=== PATIENT | male | born 1980 | race Two or more races ===

== ENCOUNTER 2020-04-24 09:44 | Outpatient (REF) | payer OTHER, SELFPAY | END 2020-04-24 09:45 | disposition home or self-care (01) | LOC: HO.LAB 09:44 | PROVIDERS: Visit Provider Internal Medicine | DX: Z20.828 Contact with and (suspected) exposure to other viral communicable diseases (principal) | CPT/HCPCS: C9803; U0003 ==

== ENCOUNTER 2020-05-26 20:39 | Emergency (ER) | payer OTHER, SELFPAY ==
[2020-05-26 20:41] VITALS: BP 141/87; PULSE 83; RESP 18; TEMP 37.3; O2SAT 95; BMI 37.0
--- NOTE | 2020-05-26 21:25 | ED_ITS ---
HPI - Extremity Injury (Lower) General Chief Complaint: Extremity Injury, Lower Stated Complaint: Toe pain Time Seen by Provider: 05/26/20 21:09 Source: patient Mode of arrival: ambulatory Limitations: no limitations History of Present Illness HPI Narrative: Patient noticed small red pimple on the dorsum aspect of right greater toe 3 days ago which is getting worse with increased pain and swelling no open wounds no other injuries Related Data Home Medications Medication Instructions Recorded Confirmed naproxen 500 mg tablet 500 mg PO BID 05/22/20 tramadol 50 mg tablet 50 mg PO BID 05/22/20 Previous Rx's Medication Instructions Recorded lisinopril 5 mg tablet 5 mg PO DAILY 90 Days #90 tab 04/14/20 lidocaine 5 % topical patch 1 patch TOPICAL DAILY #30 ea 05/22/20 methocarbamol 500 mg tablet 1,000 mg PO QID PRN 5 Days #20 tab 05/22/20 prednisone 20 mg tablet 20 mg PO DAILY 9 Days #18 tab MDD 05/22/20 3 for 3days;2 for 3 days;1 3da doxycycline hyclate 100 mg PO BID #20 cap 05/26/20 Allergies Allergy/AdvReac Type Severity Reaction Status Date / Time hazelnut [HAZELNUT] Allergy Unknown UNKNOWN Verified 05/26/20 20:41 hazelnut Allergy Unknown unknow Uncoded 05/26/20 20:41 Review of Systems Review of Systems: Yes all other systems are reviewed and are negative FORMERLY [facility], [facility] Past Medical History Medical History Back pain HTN (hypertension) Social History Social History Alcohol intake: never Smoked in Last 30 Days: No Advance Directives: No Advance Directives Information Provided: No Physical Exam Vital Signs: Vital Signs: Last Vital Signs Temp 99.1 F 05/26/20 20:41 Pulse 83 05/26/20 20:41 Resp 18 05/26/20 20:41 BP 141/87 H 05/26/20 20:41 Pulse Ox 95 05/26/20 20:41 Body Mass Index 37.0 Const: General: cooperative, healthy appearing, comfortable, no acute distress and well developed Orientation/consciousness: patient oriented x3 Neuro: General: patient oriented x3, gait normal and moves all extremities Extrem: Ankle/foot/toe images: 1. Small erythematous swelling on dorsum of the right great toe MDM - Extremity Injury (Lower) MDM Narrative Medical decision making narrative: Small folliculitis on right greater toe on the dorsal aspect punctured by 18 gauge needle small amount of pus came out bandage was applied will discharge him home on doxycycline Discharge Plan Discharge Clinical Impression: Folliculitis Patient Disposition: Home, Self-Care Instructions: Folliculitis (ED) Additional Instructions: Local care as advised take antibiotic as prescribed Prescriptions: New doxycycline hyclate 100 mg capsule 100 mg PO BID Qty: 20 RF: 0 No Action lisinopril 5 mg tablet 5 mg PO DAILY 90 Days Qty: 90 RF: 0 tramadol 50 mg tablet 50 mg PO BID RF: 0 naproxen 500 mg tablet 500 mg PO BID RF: 0 lidocaine 5 % adhesive patch,medicated 1 patch topical DAILY Qty: 30 RF: 0 prednisone 20 mg tablet 20 mg PO DAILY MDD 3 for 3days;2 for 3 days;1 3da 9 Days Qty: 18 RF: 0 methocarbamol 500 mg tablet 1,000 mg PO QID PRN (Reason: muscle spasm) 5 Days Qty: 20 RF: 0
--- NOTE | 2020-05-26 21:48 | PC.NURSE ---
pt abscess drained and cleaned by dr romeo band aid applied.
== END 2020-05-26 21:51 | disposition home or self-care (01) ==
PROVIDERS: Emergency Provider Internal Medicine; PCP Internal Medicine
DX: L73.9 Follicular disorder, unspecified (principal); M79.674 Pain in right toe(s); I10 Essential (primary) hypertension
CPT/HCPCS: 10060; 99283; 99284

== ENCOUNTER 2020-06-12 09:00 | Outpatient (REF) | payer OTHER, SELFPAY | END 2020-06-12 09:01 | disposition home or self-care (01) | LOC: HO.LAB 09:00 | PROVIDERS: Visit Provider Internal Medicine | DX: Z20.828 Contact with and (suspected) exposure to other viral communicable diseases (principal) | CPT/HCPCS: 36415; C9803; U0003 ==

== ENCOUNTER 2020-07-26 08:30 | Outpatient (REF) | payer OTHER, SELFPAY | END 2020-07-26 08:31 | disposition home or self-care (01) | LOC: HO.LAB 08:30 | PROVIDERS: PCP Internal Medicine; Visit Provider Internal Medicine | DX: Z20.822 Contact with and (suspected) exposure to COVID-19 (principal) | CPT/HCPCS: 36415; C9803; U0003; U0005 ==

== ENCOUNTER 2020-08-20 15:11 | Outpatient (REF) | payer OTHER, SELFPAY | END 2020-08-20 15:12 | disposition home or self-care (01) | LOC: HO.LAB 15:11 | PROVIDERS: Visit Provider Internal Medicine | DX: Z20.822 Contact with and (suspected) exposure to COVID-19 (principal) | CPT/HCPCS: 36415; C9803; U0003; U0005 ==

== ENCOUNTER 2020-09-04 09:21 | Outpatient (REF) | payer OTHER, SELFPAY ==
[2020-09-04 11:58] LABS: SARS COV2 PCR INHOUSE NEGATIVE (Negative)
== END 2020-09-04 09:22 | disposition home or self-care (01) ==
LOC: HO.LAB 09:21
PROVIDERS: Visit Provider Internal Medicine
DX: Z20.822 Contact with and (suspected) exposure to COVID-19 (principal)
CPT/HCPCS: C9803; U0003

== ENCOUNTER 2020-11-10 21:41 | Emergency (ER) | payer OTHER, SELFPAY ==
--- NOTE | ~2020-11-10 | CT_ITS ---
EXAMINATION: CT SOFT TISSUE NECK WITHOUT CONTRAST CLINICAL INFORMATION: Foreign body, sensation of chicken bone stuck in throat for 2 days per discussion with ordering clinician COMPARISON: None TECHNIQUE: Helical imaging was performed in the axial plane with generation of coronal and sagittal reformatted images. This CT examination was performed using dose optimization techniques as appropriate, variously including the following: *Automated exposure control *Adjustment of mA and/or kV according to patient size (this includes techniques or standardized protocols for targeted exams where dose is matched to indication/reason for exam; i.e. extremities or head) *Use of iterative reconstruction technique DLP: 1013 mGy-cm FINDINGS: No radiopaque foreign body is seen. No cervical adenopathy is identified. The parotid glands are homogeneous in attenuation. The submandibular glands are normal. No contour abnormality is seen within the oral cavity or pharyngeal mucosal space. Laryngeal cartilage calcifications are noted. The parapharyngeal fat is preserved. No extra mucosal fluid collection is seen. No retropharyngeal fluid collection is seen. The thyroid gland is unremarkable. The superior mediastinum is unremarkable. The lung apices are clear. There is partial opacification of the left maxillary sinus. Small mucous retention cyst noted in the right maxillary sinus. The mastoid air cells are well-aerated. The temporomandibular joints are normal. There is mild degenerative change in the cervical spine at C5-C6 with endplate osteophyte formation. The imaged portions of the brain parenchyma are unremarkable. CT/CT soft tissue neck wo con IMPRESSION: No radiopaque foreign body identified.
[2020-11-10 21:51] VITALS: BP 142/99; PULSE 93; RESP 16; TEMP 36.7; O2SAT 99; BMI 39.4
--- NOTE | 2020-11-11 01:10 | ED_ITS ---
HPI - General Adult General Chief complaint: Skin/Abscess/Foreign Body Stated complaint: throat pain Time Seen by Provider: 11/11/20 00:58 Source: patient and RN notes reviewed Mode of arrival: ambulatory Limitations: no limitations History of Present Illness HPI narrative: 40-year-old male with past medical history of chronic back pain and allergic rhinitis is here today for complaining of difficulty swallowing, pain with swallowing. Patient reports that he did had chicken couple days ago and he feels like the chicken got stuck in his throat. He does not remember if he had chicken with the bone or without it. Patient states that he feels like there is an something stuck in his trachea. Denies SOB, was able to swallow food and fluids, however he reports that when he swallows he feels like there is something stuck in there. Related Data Home Medications Medication Instructions Recorded Confirmed naproxen 500 mg tablet 500 mg PO BID 05/22/20 tramadol 50 mg tablet 50 mg PO BID 05/22/20 Previous Rx's Medication Instructions Recorded lidocaine 5 % topical patch 1 patch TOPICAL DAILY #30 ea 05/22/20 methocarbamol 500 mg tablet 1,000 mg PO QID PRN 5 Days #20 tab 05/22/20 prednisone 20 mg tablet 20 mg PO DAILY 9 Days #18 tab MDD 05/22/20 3 for 3days;2 for 3 days;1 3da doxycycline hyclate 100 mg PO BID #20 cap 05/26/20 hydroxyzine HCl 25 mg tablet 25 mg PO BID PRN #60 tab 11/06/20 lidocaine 5 % topical patch 1 patch TOPICAL DAILY #30 ea 11/06/20 mometasone 50 mcg/actuation nasal 2 spray INTRANASAL DAILY #17 g 11/06/20 spray ibuprofen 600 mg PO Q8H PRN #20 tab 11/11/20 ketotifen fumarate 1 drp OPHTHALMIC (EYE) BID PRN #5 11/12/20 ml omeprazole 20 mg PO DAILY #14 cap 11/12/20 Allergies Allergy/AdvReac Type Severity Reaction Status Date / Time hazelnut [HAZELNUT] Allergy Unknown UNKNOWN Verified 11/10/20 21:57 hazelnut Allergy Unknown unknow Uncoded 11/10/20 21:57 Review of Systems Review of Systems: Constitutional : No Weight loss, No Fever, No Chills, No Night Sweats, No Fatigue, No Malaise ENT/Mouth : No Hearing loss, No Ear Pain, No Nasal Congestion, No Sinus Pain, No Hoarseness, No sore throat, No Rhinorrhea, No Swallowing Difficulty, pain with swallowing Eyes: No Eye Pain, No Swelling, No Redness, No Foreign Body, No Discharge, No Vision Changes Cardiovascular : No Chest Pain, No SOB, No Dyspnea on Exertion, No Orthopnea, No Edema, No Palpitations Respiratory : No Cough, No Sputum, No Wheezing, No Smoke Exposure, No Dyspnea Gastrointestinal : No Nausea, No Vomiting, No Diarrhea, No Constipation, No abdominal Pain, No Hematochezia, No Melena Genitourinary : no irregular bleeding, No Dysuria, No Urinary Frequency, No Hematuria, No Urinary Incontinence, No Urgency, No Flank Pain, No Urinary Flow Changes, No Hesitancy Musculoskeletal : No joint pain, No Myalgias, No Joint Swelling Skin : No Skin Lesions, No rash Neuro : No Weakness, No Numbness, No Paresthesias, No Loss of Consciousness, No Dizziness, No Headache Psych : No Anxiety/Panic, No Depression, No SI/HI/AH/VH, No Social Issues, Heme/Lymph: No Bruising, No Bleeding,No Lymphadenopathy Endocrine : No Polyuria, No Polydipsia, No Temperature Intolerance Yes all other systems are reviewed and are negative PMFSH Past Medical History Medical History Back pain HTN (hypertension) Social History Social History Alcohol intake: current Alcohol intake frequency: a few times a week Use of substances other than those prescribed or required for medical reasons: No Advance Directives: No Advance Directives Information Provided: No Physical Exam Vital Signs: Vital Signs: Last Vital Signs Temp 98.1 F 11/11/20 02:45 Pulse 81 11/11/20 02:45 Resp 16 11/11/20 02:45 BP 137/86 11/11/20 02:45 Pulse Ox 98 11/11/20 02:45 Body Mass Index 39.4 Const: General: healthy appearing, no acute distress and well developed Nutritional Appearance: well nourished Orientation/consciousness: patient oriented x3 HENMT: Head: Yes normal to inspection, Yes normocephalic and Yes abrasion Ears: hearing grossly normal bilaterally General nose exam: Normal external nose present Face and sinus: Yes normal facial exam Mouth: Normal oral and palatal mucosa present Teeth and gingiva: dentition normal Throat: Yes posterior oropharynx normal Neck: Neck: Yes normal visual inspection, Yes full ROM and Yes trachea midline Thyroid: Thyroid normal Resp: Auscultation: clear to auscultation bilaterally Cardio: Rate: regular rate Rhythm: regular rhythm GI: Inspection: Yes normal to inspection and No distended Palpation (GI): No hepatosplenomegaly present Auscultation: normal bowel sounds Skin: General skin exam: elasticity normal, turgor normal and dry skin Neuro: General: patient oriented x3 Course Course Course Narrative: 40 year-old male is here today after eating chicken 2 days ag o. Patient reports that he feels like the chicken is still stuck in his throat. He reports he feels that when he swallow food or fluids he feels like there is something stuck in his trachea Reevaluation(s) Reevaluation #1: Spoke to radiologist reports that there is no foreign object. Spoke to patient reassured him that the pain might be associated with mild abrasion, however there is no swelling noted. Patient able to tolerate fluids. I will send him home so he can gargle with warm water and salt. He he can follow up with his primary care provider in 2-3 days. He is agreeable to this plan of care and verbalizes understanding. He was given the opportunity to ask questions and all questions answered. Medical Decision Making Imaging Data Soft tissue neck CT scan: Radiologist's impression: FINDINGS: No radiopaque foreign body is seen. No cervical adenopathy is identified. The parotid glands are homogeneous in attenuation. The submandibular glands are normal. No contour abnormality is seen within the oral cavity or pharyngeal mucosal space. Laryngeal cartilage calcifications are noted. The parapharyngeal fat is preserved. No extra mucosal fluid collection is seen. No retropharyngeal fluid collection is seen. The thyroid gland is unremarkable. The superior mediastinum is unremarkable. The lung apices are clear. There is partial opacification of the left maxillary sinus. Small mucous retention cyst noted in the right maxillary sinus. The mastoid air cells are well-aerated. The temporomandibular joints are normal. There is mild degenerative change in the cervical spine at C5-C6 with endplate osteophyte formation. The imaged portions of the brain parenchyma are unremarkable. CT/CT soft tissue neck wo con IMPRESSION: No radiopaque foreign body identified. Discharge Plan Discharge Clinical Impression: Acute sore throat Patient Disposition: Home, Self-Care Instructions: Pharyngitis (ED) Additional Instructions: You were seen here today for questioning foreign body was stuck in your throat. CT scan of the neck show no foreign body. Please make sure you gargle with warm water and salt few times a day. When you eat make sure you eat soft food and eat small pieces. Please return to emergency department if your symptoms will get worse or if you will experience any other concerning symptoms. You may take ibuprofen that will help with pain and inflammation Prescriptions: New ibuprofen 600 mg tablet 600 mg PO Q8H PRN (Reason: pain) Qty: 20 RF: 0 No Action doxycycline hyclate 100 mg capsule 100 mg PO BID Qty: 20 RF: 0 omeprazole 20 mg capsule,delayed release(DR/EC) 20 mg PO DAILY Qty: 14 RF: 0 ketotifen fumarate 0.025 % (0.035 %) drops 1 drp ophthalmic (eye) BID PRN (Reason: allergy symptoms) Qty: 5 RF: 0 hydroxyzine HCl 25 mg tablet 25 mg PO BID PRN (Reason: itching) Qty: 60 RF: 0 mometasone 50 mcg/actuation spray,non-aerosol 2 spray intranasal DAILY Qty: 17 RF: 0 lidocaine 5 % adhesive patch,medicated 1 patch topical DAILY Qty: 30 RF: 0 tramadol 50 mg tablet 50 mg PO BID RF: 0 naproxen 500 mg tablet 500 mg PO BID RF: 0 lidocaine 5 % adhesive patch,medicated 1 patch topical DAILY Qty: 30 RF: 0 prednisone 20 mg tablet 20 mg PO DAILY MDD 3 for 3days;2 for 3 days;1 3da 9 Days Qty: 18 RF: 0 methocarbamol 500 mg tablet 1,000 mg PO QID PRN (Reason: muscle spasm) 5 Days Qty: 20 RF: 0 Interventions: ED Discharge Assessment Last Done: 11/11/20 02:46 Discharge Date/Time: 11/11/20 02:47
[2020-11-11] MEDS: Ibuprofen 600 MG TABLET PO (02:42)
[2020-11-11 02:45] VITALS: BP 137/86; PULSE 81; RESP 16; TEMP 36.7; O2SAT 98
== END 2020-11-11 02:47 | disposition home or self-care (01) ==
PROVIDERS: Emergency Provider Student in an Organized Health Care Education/Training Program; PCP Internal Medicine
DX: J02.9 Acute pharyngitis, unspecified (principal); I10 Essential (primary) hypertension; R09.89 Other specified symptoms and signs involving the circulatory and respiratory systems
CPT/HCPCS: 70490; 99283; 99284

== ENCOUNTER 2020-11-12 10:11 | Emergency (ER) | payer OTHER, SELFPAY ==
--- NOTE | 2020-11-12 | ECG_ITS ---
Test Reason : CP Blood Pressure : / mmHG Vent. Rate : 088 BPM Atrial Rate : 088 BPM P-R Int : 182 ms QRS Dur : 086 ms QT Int : 368 ms P-R-T Axes : 041 -18 005 degrees QTc Int : 445 ms Normal sinus rhythm Minimal voltage criteria for LVH, may be normal variant Borderline ECG When compared with ECG of 12-JUL-2018 10:56, No significant change was found Referred By: Generic ED Physician Electronically Signed By:GENNARO ZAVALETA MD
--- NOTE | ~2020-11-12 | FL_ITS ---
EXAMINATION: FL BARIUM SWALLOW CLINICAL INFORMATION: Rule out esophageal foreign body. COMPARISON: None TECHNIQUE: Barium swallow examination is performed using fluoroscopic evaluation in addition to multiple fluoroscopic spot views. The patient is imaged both upright and prone and using both thick and thin sulfate along with effervescent granules. Fluoroscopy time: 2.4 minutes DAP: 8.576 Gycm2 Images: 48 FINDINGS: Following oral administration of thin, thick barium and barium coated turkey in upright views there is normal propagation of bolus from the oral cavity through the pharynx, esophagus into stomach without any evidence of obstruction, narrowing or stricture. No foreign body seen. No laryngeal penetration or aspiration. No retention of food in the valleculae or the piriform sinuses. On placing patient prone lying and oral administration of thin barium there is good distention of the entire esophagus without intraluminal filling defect or narrowing. No gastroesophageal reflux or hiatal hernia seen. FL/FL barium swallow IMPRESSION: Unremarkable barium swallow exam. No radiopaque foreign body or obstruction seen.
--- NOTE | ~2020-11-12 | XR_ITS ---
EXAMINATION: XR CHEST CLINICAL INFORMATION: Chest pain. COMPARISON: None TECHNIQUE: 2 views of the chest were obtained. FINDINGS: No significant abnormality is noted involving the heart, lungs, mediastinum, bony thorax or soft tissues. XR/XR chest 2V IMPRESSION: Unremarkable chest examination.
[2020-11-12 10:17] VITALS: BP 142/90; PULSE 92; RESP 18; TEMP 36.3; O2SAT 96; BMI 39.9
--- NOTE | 2020-11-12 11:25 | ED.GENADULT ---
HPI - General Adult General Chief complaint: General Medical <ITA Avery Last Filed: 11/12/20 16:40> Stated complaint: chest pain <ITA Avery Last Filed: 11/12/20 16:40> Time Seen by Provider: 11/12/20 11:06 <ITA Avery Last Filed: 11/12/20 16:40> History of Present Illness HPI narrative: Patient complains of 2 days of pain with swallowing it started 2 days ago and the patient came to the ER when he was eating a piece of gristle from chicken and he felt pain as soon as it went down his throat and he felt like it was stuck there and he came to this emergency department where was seen and evaluated with the soft tissue neck CT scan which did not reveal any foreign body or any acute pathology Now today only when he swallows he has pain in both his throat and his upper chest, he has no chest pain except when swallowing there is no exertional pain there is no shortness of breath no sweating from his forehead no nausea no fainting or feeling faint, no abdominal pain no nausea or vomiting or diarrhea no urinary symptoms He is able to swallow and eat foods and drink fluids but it is painful <ITA Avery Last Filed: 11/12/20 16:40> Related Data Home medications: Home Medications Medication Instructions Recorded Confirmed naproxen 500 mg tablet 500 mg PO BID 05/22/20 tramadol 50 mg tablet 50 mg PO BID 05/22/20 Previous Rx's Medication Instructions Recorded lidocaine 5 % topical patch 1 patch TOPICAL DAILY #30 ea 05/22/20 methocarbamol 500 mg tablet 1,000 mg PO QID PRN 5 Days #20 tab 05/22/20 prednisone 20 mg tablet 20 mg PO DAILY 9 Days #18 tab MDD 05/22/20 3 for 3days;2 for 3 days;1 3da doxycycline hyclate 100 mg PO BID #20 cap 05/26/20 hydroxyzine HCl 25 mg tablet 25 mg PO BID PRN #60 tab 11/06/20 lidocaine 5 % topical patch 1 patch TOPICAL DAILY #30 ea 11/06/20 mometasone 50 mcg/actuation nasal 2 spray INTRANASAL DAILY #17 g 11/06/20 spray ibuprofen 600 mg PO Q8H PRN #20 tab 11/11/20 ketotifen fumarate 1 drp OPHTHALMIC (EYE) BID PRN #5 11/12/20 ml omeprazole 20 mg PO DAILY #14 cap 11/12/20 cephalexin [Keflex] 750 mg PO Q12H #14 cap 12/06/20 doxycycline hyclate 100 mg PO BID #14 tab 12/06/20 <ITA Avery - Last Filed: 11/12/20 16:40> Allergies/adverse reactions: Allergies Allergy/AdvReac Type Severity Reaction Status Date / Time hazelnut [HAZELNUT] Allergy Unknown UNKNOWN Verified 11/10/20 21:57 hazelnut Allergy Unknown unknow Uncoded 11/10/20 21:57 <ITA Avery - Last Filed: 11/12/20 16:40> Review of Systems Review of Systems: Positive for pain in the throat in the upper chest with swallowing next not negatives are no fever no chills no dizziness or weakness no fainting no feeling faint no headache no shortness of breath no palpitations no sweating no abdominal pain no nausea vomiting or diarrhea no dysuria no skin rash no numbness or weakness <ITA Avery Last Filed: 11/12/20 16:40> Yes all other systems are reviewed and are negative <ITA Avery - Last Filed: 11/12/20 16:40> [facility] Past Medical History Source: nursing notes reviewed <ITA Avery Last Filed: 11/12/20 16:40> Medical History: Medical History Back pain HTN (hypertension) <ITA Avery Last Filed: 11/12/20 16:40> Social History Social History: Social History Alcohol intake: current Alcohol intake frequency: a few times a week Advance Directives: No <ITA Avery Last Filed: 11/12/20 16:40> Physical Exam Vital Signs: Vital Signs: Last Vital Signs Temp 97.9 F 11/12/20 15:38 Pulse 85 11/12/20 15:38 Resp 18 11/12/20 15:38 BP 144/93 H 11/12/20 15:38 Pulse Ox 96 11/12/20 15:38 Body Mass Index 39.9 <ITA Avery - Last Filed: 11/12/20 16:40> Vital Signs: Last Vital Signs Temp 97.9 F 11/12/20 15:38 Pulse 85 11/12/20 15:38 Resp 18 11/12/20 15:38 BP 144/93 H 11/12/20 15:38 Pulse Ox 96 11/12/20 15:38 Body Mass Index 39.9 <Anderson Bailey MD - Last Filed: 12/20/20 13:25> General appearance is no acute distress comfortable and cooperative The eyes are anicteric, no pallor The pharynx is clear with no visible obstruction, there is no swelling uvula is midline mucous membranes are moist the voice is normal, no trismus no drooling The neck is supple there is no stridor The chest is clear to auscultation bilateral with full symmetric equal breath sounds no adventitious sounds, no tenderness to the chest wall The abdomen is soft and nontender Extremities no edema, full range of motion x4 Skin no rashes <ITA Avery - Last Filed: 11/12/20 16:40> Course Course Course Narrative: Case was discussed with Dr. simpson property staff accountant by text who advised to get a barium swallow to check if there is any obstruction Barium swallow was normal, and I texted with Dr. simpson who said she would follow the patient on an outpatient basis The patient is able to swallow although it is uncomfortable he can swallow both solids and liquids there is no drooling no regurgitation no difficulty breathing and patient is safe to discharge and will come back if worse Chest x-ray was done as well and is normal <ITA Avery - Last Filed: 11/12/20 16:40> I have reviewed the chart <Anderson Bailey MD - Last Filed: 12/20/20 13:25> Discharge Plan Discharge Clinical Impression: Odynophagia <ITA Avery - Last Filed: 11/12/20 16:40> Patient Disposition: Home, Self-Care <ITA Avery - Last Filed: 11/12/20 16:40> Additional Instructions: Chest x-ray was normal Barium swallow did not show any obstruction or foreign body This could be an irritated or scratched esophagus that may be uncomfortable for a couple of days, but we are not sure Follow with GI doctor calvin and primary care doctor Return any time for any worse condition or any concerns <ITA Avery - Last Filed: 11/12/20 16:40> Prescriptions: New omeprazole 20 mg capsule,delayed release(DR/EC) 20 mg PO DAILY Qty: 14 RF: 0 ketotifen fumarate 0.025 % (0.035 %) drops 1 drp ophthalmic (eye) BID PRN (Reason: allergy symptoms) Qty: 5 RF: 0 No Action doxycycline hyclate 100 mg capsule 100 mg PO BID Qty: 20 RF: 0 ibuprofen 600 mg tablet 600 mg PO Q8H PRN (Reason: pain) Qty: 20 RF: 0 cephalexin [Keflex] 750 mg capsule 750 mg PO Q12H Qty: 14 RF: 0 doxycycline hyclate 100 mg tablet 100 mg PO BID Qty: 14 RF: 0 hydroxyzine HCl 25 mg tablet 25 mg PO BID PRN (Reason: itching) Qty: 60 RF: 0 mometasone 50 mcg/actuation spray,non-aerosol 2 spray intranasal DAILY Qty: 17 RF: 0 lidocaine 5 % adhesive patch,medicated 1 patch topical DAILY Qty: 30 RF: 0 tramadol 50 mg tablet 50 mg PO BID RF: 0 naproxen 500 mg tablet 500 mg PO BID RF: 0 lidocaine 5 % adhesive patch,medicated 1 patch topical DAILY Qty: 30 RF: 0 prednisone 20 mg tablet 20 mg PO DAILY MDD 3 for 3days;2 for 3 days;1 3da 9 Days Qty: 18 RF: 0 methocarbamol 500 mg tablet 1,000 mg PO QID PRN (Reason: muscle spasm) 5 Days Qty: 20 RF: 0 <ITA Avery - Last Filed: 11/12/20 16:40> Referrals: Aarti Simpson MD [Physician] - 2 days (Follow-up for painful swallowing and foreign body sensation in esophagus) <ITA Avery - Last Filed: 11/12/20 16:40> Discharge Date/Time: 11/12/20 17:20 <ITA Avery - Last Filed: 11/12/20 16:40>
--- NOTE | 2020-11-12 12:23 | PC.NURSE ---
Patient is asleep on the stretcher in no distress. respirations are even and nonlabored.
[2020-11-12 13:05] VITALS: BP 127/81; PULSE 84; RESP 17; TEMP 36.7; O2SAT 96
--- NOTE | 2020-11-12 14:00 | PC.NURSE ---
Patient back from getting barium swallow study done. Pt is alert and talking on the phone. Pt states he is not in any pain unless he swallows.
[2020-11-12 15:38] VITALS: BP 144/93; PULSE 85; RESP 18; TEMP 36.6; O2SAT 96
== END 2020-11-12 17:20 | disposition home or self-care (01) ==
PROVIDERS: Emergency Provider Emergency Medicine; PCP Internal Medicine
DX: R13.10 Dysphagia, unspecified (principal); R07.9 Chest pain, unspecified; I10 Essential (primary) hypertension; R09.89 Other specified symptoms and signs involving the circulatory and respiratory systems; Z79.899 Other long term (current) drug therapy
CPT/HCPCS: 71046; 74220; 93005; 99284

== ENCOUNTER 2020-12-06 17:38 | Emergency (ER) | payer OTHER, SELFPAY ==
[2020-12-06 18:53] VITALS: BP 145/100; PULSE 78; RESP 18; TEMP 36.7; O2SAT 97; BMI 39.4
--- NOTE | 2020-12-06 19:50 | ED.SKABFB ---
HPI - Skin/Abscess/Foreign Bdy General Chief complaint: Skin/Abscess/Foreign Body Stated complaint: Cyst Time Seen by Provider: 12/06/20 19:36 Source: patient Mode of arrival: ambulatory Limitations: no limitations History of Present Illness HPI narrative: patient is a 40-year-old male with past medical history of hypertension presents with 2 abscesses he would like evaluated. He states they have been there for a couple of days and are painful. He states 1 is on the back of his neck, he says it has not drained heat only scratch the surface of it and that is where there is a scab there. He also states the 2nd 1 is on his right shoulder, at the tip of the shoulder, he feels they are both growing and are becoming more painful. He tried taking ibuprofen with no relief. He denies fevers. Related Data Home Medications Medication Instructions Recorded Confirmed naproxen 500 mg tablet 500 mg PO BID 05/22/20 tramadol 50 mg tablet 50 mg PO BID 05/22/20 Previous Rx's Medication Instructions Recorded lidocaine 5 % topical patch 1 patch TOPICAL DAILY #30 ea 05/22/20 methocarbamol 500 mg tablet 1,000 mg PO QID PRN 5 Days #20 tab 05/22/20 prednisone 20 mg tablet 20 mg PO DAILY 9 Days #18 tab MDD 05/22/20 3 for 3days;2 for 3 days;1 3da doxycycline hyclate 100 mg PO BID #20 cap 05/26/20 hydroxyzine HCl 25 mg tablet 25 mg PO BID PRN #60 tab 11/06/20 lidocaine 5 % topical patch 1 patch TOPICAL DAILY #30 ea 11/06/20 mometasone 50 mcg/actuation nasal 2 spray INTRANASAL DAILY #17 g 11/06/20 spray ibuprofen 600 mg PO Q8H PRN #20 tab 11/11/20 ketotifen fumarate 1 drp OPHTHALMIC (EYE) BID PRN #5 11/12/20 ml omeprazole 20 mg PO DAILY #14 cap 11/12/20 cephalexin [Keflex] 750 mg PO Q12H #14 cap 12/06/20 doxycycline hyclate 100 mg PO BID #14 tab 12/06/20 Allergies Allergy/AdvReac Type Severity Reaction Status Date / Time hazelnut [HAZELNUT] Allergy Unknown UNKNOWN Verified 11/10/20 21:57 hazelnut Allergy Unknown unknow Uncoded 11/10/20 21:57 Review of Systems Review of Systems: Yes all other systems are reviewed and are negative [facility], [facility] Past Medical History Medical History Back pain HTN (hypertension) Social History Social History Alcohol intake: current Alcohol intake frequency: a few times a week Advance Directives: No Physical Exam Vital Signs: Vital Signs: Last Vital Signs Temp 98.0 F 12/06/20 18:53 Pulse 78 12/06/20 18:53 Resp 18 12/06/20 18:53 BP 145/100 H 12/06/20 18:53 Pulse Ox 97 12/06/20 18:53 Body Mass Index 39.4 Const: General: cooperative, healthy appearing, comfortable and no acute distress Orientation/consciousness: patient oriented x3 Eyes: General: appearance normal, both eyes and all related structures Skin: Other: Posterior neck 1.5 cm indurated abscess, no erythema, no drainage, no warmth, not fluctuant with small scab in the central area, very tender to palpation. I was unable to palpate a lump on his right superior shoulder nor was I able to visualize any lump or abscess on his right superior shoulder, there is no induration, no fluctuance, no erythema, no signs of infection noted Neuro: General: patient oriented x3 Discharge Plan Discharge Clinical Impression: Abscess Patient Disposition: Home, Self-Care Instructions: Abscess (ED) Additional Instructions: As discussed, please use warm compresses over the area of your abscess as often as possible to encourage the drainage. Unfortunately, it is not a fluctuant enough for me to incise and drain anything so I have prescribed 2 antibiotics for you to take, we will give your 1st dose in the emergency department tonight as her pharmacy may be closed. Please take both antibiotics in full, as directed. Prescriptions: New cephalexin [Keflex] 750 mg capsule 750 mg PO Q12H Qty: 14 RF: 0 doxycycline hyclate 100 mg tablet 100 mg PO BID Qty: 14 RF: 0 No Action doxycycline hyclate 100 mg capsule 100 mg PO BID Qty: 20 RF: 0 ibuprofen 600 mg tablet 600 mg PO Q8H PRN (Reason: pain) Qty: 20 RF: 0 omeprazole 20 mg capsule,delayed release(DR/EC) 20 mg PO DAILY Qty: 14 RF: 0 ketotifen fumarate 0.025 % (0.035 %) drops 1 drp ophthalmic (eye) BID PRN (Reason: allergy symptoms) Qty: 5 RF: 0 hydroxyzine HCl 25 mg tablet 25 mg PO BID PRN (Reason: itching) Qty: 60 RF: 0 mometasone 50 mcg/actuation spray,non-aerosol 2 spray intranasal DAILY Qty: 17 RF: 0 lidocaine 5 % adhesive patch,medicated 1 patch topical DAILY Qty: 30 RF: 0 tramadol 50 mg tablet 50 mg PO BID RF: 0 naproxen 500 mg tablet 500 mg PO BID RF: 0 lidocaine 5 % adhesive patch,medicated 1 patch topical DAILY Qty: 30 RF: 0 prednisone 20 mg tablet 20 mg PO DAILY MDD 3 for 3days;2 for 3 days;1 3da 9 Days Qty: 18 RF: 0 methocarbamol 500 mg tablet 1,000 mg PO QID PRN (Reason: muscle spasm) 5 Days Qty: 20 RF: 0
[2020-12-06] MEDS: cephALEXin 500 MG CAPSULE PO (19:54)
== END 2020-12-06 19:57 | disposition home or self-care (01) ==
PROVIDERS: Emergency Provider Internal Medicine; PCP Internal Medicine
DX: L02.11 Cutaneous abscess of neck (principal); I10 Essential (primary) hypertension
CPT/HCPCS: 99283

== ENCOUNTER 2021-02-26 08:56 | Outpatient (REF) | payer OTHER, SELFPAY | END 2021-02-26 08:57 | disposition home or self-care (01) | LOC: HO.LAB 08:56 | PROVIDERS: PCP Internal Medicine; Visit Provider Internal Medicine | DX: Z20.822 Contact with and (suspected) exposure to COVID-19 (principal) | CPT/HCPCS: C9803; U0003; U0005 ==

== ENCOUNTER 2021-03-13 07:29 | Emergency (ER) | payer OTHER, SELFPAY ==
[2021-03-13 07:40] VITALS: BP 145/92; PULSE 75; RESP 16; TEMP 35.8; O2SAT 98; BMI 40.3
--- NOTE | 2021-03-13 08:43 | ED_ITS ---
HPI - Back Pain/Injury General Chief Complaint: Back Pain/Injury Stated Complaint: Back pain Time Seen by Provider: 03/13/21 08:42 Source: patient Mode of arrival: ambulatory Limitations: no limitations History of Present Illness HPI Narrative: Patient states that yesterday he developed left side back pain while at rest. Patient had MRI done in 2017 that showed chronic changes. Patient has a back doctor and takes tramadol MD elicited complaint: back pain Pertinent past history: prior back pain Onset (ago): day(s) Timing: constant Severity: mild Location: lumbar spine Exacerbating factors: movement and walking Associated symptoms: denies other symptoms Related Data Home Medications Medication Instructions Recorded Confirmed naproxen 500 mg tablet 500 mg PO BID 05/22/20 tramadol 50 mg tablet 50 mg PO BID 05/22/20 Previous Rx's Medication Instructions Recorded lidocaine 5 % topical patch 1 patch TOPICAL DAILY #30 ea 05/22/20 methocarbamol 500 mg tablet 1,000 mg PO QID PRN 5 Days #20 tab 05/22/20 prednisone 20 mg tablet 20 mg PO DAILY 9 Days #18 tab MDD 05/22/20 3 for 3days;2 for 3 days;1 3da doxycycline hyclate 100 mg capsule 100 mg PO BID #20 cap 05/26/20 hydroxyzine HCl 25 mg tablet 25 mg PO BID PRN #60 tab 11/06/20 lidocaine 5 % topical patch 1 patch TOPICAL DAILY #30 ea 11/06/20 mometasone 50 mcg/actuation nasal 2 spray INTRANASAL DAILY #17 g 11/06/20 spray ibuprofen 600 mg tablet 600 mg PO Q8H PRN #20 tab 11/11/20 ketotifen fumarate 0.025 % (0.035 1 drp OPHTHALMIC (EYE) BID PRN #5 11/12/20 %) eye drops ml omeprazole 20 mg capsule,delayed 20 mg PO DAILY #14 cap 11/12/20 release cephalexin 750 mg capsule (Keflex) 750 mg PO Q12H #14 cap 12/06/20 doxycycline hyclate 100 mg tablet 100 mg PO BID #14 tab 12/06/20 cyclobenzaprine 10 mg tablet 10 mg PO TID #10 tab 03/13/21 gabapentin 100 mg capsule 100 mg PO TID #20 cap 03/13/21 naproxen 500 mg tablet (Naprosyn) 500 mg PO BID #20 tab 03/13/21 Allergies Allergy/AdvReac Type Severity Reaction Status Date / Time hazelnut [HAZELNUT] Allergy Unknown UNKNOWN Verified 11/10/20 21:57 hazelnut Allergy Unknown unknow Uncoded 11/10/20 21:57 Review of Systems Constitutional: Constitutional: Reports no additional constitutional complaints Eyes: Eyes: Reports no additional eye complaints ENT: Denies dizziness Cardiovascular: Cardiovascular: Reports no additional cardiovascular complaints Respiratory: Respiratory: Reports as per HPI Gastrointestinal: Gastrointestinal: Reports no additional gastrointestinal complaints Musculoskeletal: Musculoskeletal: Reports no additional musculoskeletal complaints Integumentary/Breasts: Skin/Breast: Denies rash Neurologic: Reports system reviewed and no additional complaints, except as documented, Denies dizziness and Denies Sensory deficit (Neuro) Psychiatric: Psychiatric: Denies anxiety [facility] Past Medical History Medical History Back pain HTN (hypertension) Social History Social History Alcohol intake: current Alcohol intake frequency: a few times a week Physical Exam Vital Signs: Vital Signs: Last Vital Signs Temp 96.5 F L 03/13/21 07:40 Pulse 75 03/13/21 07:40 Resp 16 03/13/21 07:40 BP 145/92 H 03/13/21 07:40 Pulse Ox 98 03/13/21 07:40 Body Mass Index 40.3 Const: General: healthy appearing Nutritional Appearance: average body habitus Orientation/consciousness: oriented to person and patient oriented x3 Limitations: no limitations HENMT: Head: Yes normal to inspection Ears: external ears normal General nose exam: Normal external nose present Mouth: Normal oral and palatal mucosa present and oropharynx normal Throat: Yes posterior oropharynx normal Eyes: General: appearance normal, both eyes and all related structures Neck: Other: supple Neck: Yes normal visual inspection Chest: Chest palpation & inspection: normal inspection of the chest Resp: Auscultation: clear to auscultation bilaterally Cardio: Jugular venous distension: no JVD Rate: regular rate Rhythm: regular rhythm Heart sounds: S1 normal heart sound present and S2 normal heart sound present GI: Inspection: Yes normal to inspection Palpation (GI): Soft to palpation, nontender and No hepatosplenomegaly present Auscultation: normal bowel sounds Back/Spine/Pelvis: Other: Patient with pain on movement, with left flank pain that radiates down to his knee. No straight leg raise. Skin: General skin exam: no rashes or lesions noted Neuro: General: oriented to person and patient oriented x3 Cranial nerves: Yes CN's II-XII intact bilaterally Motor exam (neuro): 5/5 motor strength present throughout Sensory Exam: No Sensory deficit (Neuro) Extrem: General: Yes normal to inspection Psych: Appearance: grossly normal Course Reevaluation(s) Reevaluation #1: Patient with flare and chronic pain will start gabapentin along with NSAIDs and flexeril Time: 08:50 Discharge Plan Discharge Clinical Impression: Lumbar radiculopathy Chronic back pain Qualifiers: Back pain location: low back pain Back pain laterality: left Sciatica presence: with sciatica Sciatica laterality: sciatica of left side Qualified Code(s): M54.42 - Lumbago with sciatica, left side Patient Disposition: Home, Self-Care Instructions: Acute Low Back Pain (ED), Lumbar Radiculopathy (ED) Prescriptions: New cyclobenzaprine 10 mg tablet 10 mg PO TID Qty: 10 RF: 0 naproxen [Naprosyn] 500 mg tablet 500 mg PO BID Qty: 20 RF: 0 gabapentin 100 mg capsule 100 mg PO TID Qty: 20 RF: 0 No Action doxycycline hyclate 100 mg capsule 100 mg PO BID Qty: 20 RF: 0 ibuprofen 600 mg tablet 600 mg PO Q8H PRN (Reason: pain) Qty: 20 RF: 0 cephalexin [Keflex] 750 mg capsule 750 mg PO Q12H Qty: 14 RF: 0 doxycycline hyclate 100 mg tablet 100 mg PO BID Qty: 14 RF: 0 omeprazole 20 mg capsule,delayed release(DR/EC) 20 mg PO DAILY Qty: 14 RF: 0 ketotifen fumarate 0.025 % (0.035 %) drops 1 drp ophthalmic (eye) BID PRN (Reason: allergy symptoms) Qty: 5 RF: 0 hydroxyzine HCl 25 mg tablet 25 mg PO BID PRN (Reason: itching) Qty: 60 RF: 0 mometasone 50 mcg/actuation spray,non-aerosol 2 spray intranasal DAILY Qty: 17 RF: 0 lidocaine 5 % adhesive patch,medicated 1 patch topical DAILY Qty: 30 RF: 0 tramadol 50 mg tablet 50 mg PO BID RF: 0 naproxen 500 mg tablet 500 mg PO BID RF: 0 lidocaine 5 % adhesive patch,medicated 1 patch topical DAILY Qty: 30 RF: 0 prednisone 20 mg tablet 20 mg PO DAILY MDD 3 for 3days;2 for 3 days;1 3da 9 Days Qty: 18 RF: 0 methocarbamol 500 mg tablet 1,000 mg PO QID PRN (Reason: muscle spasm) 5 Days Qty: 20 RF: 0 Referrals: Shannan Mcbride MD [Primary Care Provider] - 1 week
[2021-03-13] MEDS: Cyclobenzaprine HCl 10 MG TABLET PO (09:15)
[2021-03-13] MEDS: Ketorolac Tromethamine 60 MG/2 ML VIAL IM (09:15)
[2021-03-13] MEDS: Gabapentin 100 MG CAPSULE PO (09:15)
== END 2021-03-13 09:21 | disposition home or self-care (01) ==
LOC: HO.ED 09:04
PROVIDERS: Emergency Provider Emergency Medicine; PCP Internal Medicine
DX: M54.16 Radiculopathy, lumbar region (principal); M54.42 Lumbago with sciatica, left side; I10 Essential (primary) hypertension; Z79.899 Other long term (current) drug therapy
CPT/HCPCS: 96372; 99284; J1885

== ENCOUNTER 2021-04-11 19:29 | Outpatient (REF) | payer OTHER, SELFPAY ==
--- NOTE | ~2021-04-11 | MR_ITS ---
EXAMINATION: MR LUMBAR SPINE WITHOUT CONTRAST CLINICAL INFORMATION: Lumbar radiculopathy. COMPARISON: Lumbar spine radiographs 08/21/2016. TECHNIQUE: MRI of the lumbar spine was obtained using routine sequences without contrast. FINDINGS: There is nonspecific straightening of the lumbar lordosis. Alignment is otherwise normal. Vertebral heights are preserved. No acute bone marrow signal changes. There is a right central protrusion superimposed upon a bulging disc at T11-T12 causing moderate canal stenosis and subtle distortion of the right ventrolateral surface of the distal cord. No clear evidence of abnormal intramedullary signal changes. The tip of the conus medullaris is located at L1. At L1-L2 the annular contour is normal. No canal or neuroforaminal compromise. At L2-L3 is a slightly bulging disc. No canal stenosis. No mass effect on the traversing or foraminal nerve roots. At L3-L4 there is a large left far lateral protrusion superimposed upon a bulging disc causing moderate to severe compression of the extraforaminal segment of left L3 nerve root. No canal stenosis. At L4-L5 there is a slightly bulging disc. Bilateral facet degenerative change. No canal stenosis. Mild to moderate mass effect on the right L4 foraminal nerve root. At L5-S1 there is a slightly bulging disc. Bilateral facet degenerative change. No canal stenosis. Partial effacement of the paranasal fat with mild to moderate mass effect on both L5 foraminal nerve roots, slightly greater on the left. Limited visualization of the retroperitoneal anatomy reveals no abnormal finding. Psoas and paraspinal muscle groups are symmetric. MR/MR lumbar spine wo con IMPRESSION: There is multilevel degenerative spondylosis of lumbar spine. Although only partially included within the [id number] of this examination there is a right central protrusion at T11-T12 causing moderate canal stenosis and subtle distortion of the right ventrolateral surface of the distal thoracic cord. No clear evidence of abnormal intramedullary signal changes to suggest edema or myelomalacia at this time. There is a relatively large left far lateral protrusion at L3-L4 causing moderate to severe compression of the extraforaminal segment of left L3 nerve root. There is also mild to moderate mass effect on the right L4 foraminal nerve root and the both L5 foraminal nerve roots related to degenerative changes at L4-L5 and L5-S1 respectively.
== END 2021-04-11 19:30 | disposition home or self-care (01) ==
LOC: HO.MRI 19:29
PROVIDERS: Visit Provider Internal Medicine
DX: M54.16 Radiculopathy, lumbar region (principal); M48.061 Spinal stenosis, lumbar region without neurogenic claudication; R20.2 Paresthesia of skin
CPT/HCPCS: 72148

== ENCOUNTER 2021-06-06 10:57 | Outpatient (REF) | payer OTHER, SELFPAY | END 2021-06-06 10:58 | disposition home or self-care (01) | LOC: HO.HMGCLDS 10:57 | PROVIDERS: Visit Provider Internal Medicine | DX: Z20.822 Contact with and (suspected) exposure to COVID-19 (principal) | CPT/HCPCS: C9803; U0003; U0005 ==

== ENCOUNTER 2021-06-12 09:11 | Outpatient (REF) | payer OTHER, SELFPAY | END 2021-06-12 09:12 | disposition home or self-care (01) | LOC: HO.HMGCLDS 09:11 | PROVIDERS: Visit Provider Internal Medicine | DX: Z20.822 Contact with and (suspected) exposure to COVID-19 (principal) | CPT/HCPCS: C9803; U0003; U0005 ==

== ENCOUNTER 2021-07-11 12:35 | Emergency (ER) | payer OTHER, SELFPAY ==
--- NOTE | ~2021-07-11 | CT_ITS ---
EXAMINATION: CT LUMBAR SPINE WITHOUT CONTRAST CLINICAL INFORMATION: Reason spine surgery. Trauma. Question fracture. COMPARISON: Lumbar spine MRI 04/11/2021. TECHNIQUE: [employer] Consultant images were obtained. CT imaging of the lumbar spine was performed without contrast. Data was reformatted into multiplanar images at the acquisition workstation. This CT examination was performed using dose optimization techniques as appropriate, variously including the following: *Automated exposure control *Adjustment of mA and/or kV according to patient size (this includes techniques or standardized protocols for targeted exams where dose is matched to indication/reason for exam; i.e. extremities or head) *Use of iterative reconstruction technique DLP; 1096 mGy-cm FINDINGS: Alignment is normal. Vertebral body heights are preserved. No acute fracture. Intervertebral disc heights are maintained at all levels. 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 Canal patency is not well assessed on this examination due to inherent limitations of CT without intrathecal contrast. Similar to the findings demonstrated on prior imaging there is a right central protrusion at T11-T12 the causes at least moderate canal stenosis. There is also a broad left foraminal to far lateral protrusion at L3-L4. Disc osteophyte spurring in conjunction with facet degenerative change causes at least moderate mass effect on the foraminal segments of the nerve roots within the mid to lower lumbar spine, better depicted on recent MR imaging. Limited visualization of the retroperitoneal anatomy reveals no abnormal finding. Psoas and paraspinal muscle groups are symmetric. CT/CT lumbar spine wo con IMPRESSION: Mild multilevel degenerative spondylosis of the lumbar spine which appears to be superimposed upon a congenitally narrow canal. The canal patency is not well assessed on this examination due to inherent limitations of CT without intrathecal contrast. There is a right central protrusion at T11-T12 causing at least moderate canal stenosis and there is at least moderate mass effect on the foraminal segments of the nerve roots within the mid to lower lumbar spine related to multiple factors.
[2021-07-11 12:57] VITALS: BP 154/114; PULSE 99; RESP 18; TEMP 37.2; O2SAT 96; BMI 39.9
[2021-07-11] MEDS: oxyCODONE HCl Immed Release 5 MG TABLET PO (13:44)
[2021-07-11] MEDS: Ibuprofen 800 MG TABLET PO (13:44)
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
--- NOTE | 2021-07-11 14:18 | PC.NURSE ---
PT REQUESTING A BED STATE HE HAD BACK SURGERY YESTERDAY AND THAT WE ARE TORCHING HIM BY PUTTING HIM IN A RECLINER. [facility] WILL BE CLEANED AND THEN PT WILL BE MOVED.
== END 2021-07-11 16:59 | disposition home or self-care (01) ==
PROVIDERS: Emergency Provider Emergency Medicine Emergency Medical Services; PCP Internal Medicine
DX: M51.26 Other intervertebral disc displacement, lumbar region (principal); M51.24 Other intervertebral disc displacement, thoracic region
CPT/HCPCS: 72131; 99284

== ENCOUNTER 2022-01-07 12:16 | Outpatient (REF) | payer OTHER, SELFPAY ==
[2022-01-07 13:46] LABS: MANUAL DIFF FLAG NO
[2022-01-07 13:56] LABS: Basophils Percent Auto 0.7 % (0-2); Eosinophils Absolute Auto 0.3 X10*3/uL (0.0-0.4); Eosinophils Percent Auto 4.9 % (0-4); Hemoglobin 15.5 g/dl (14.0-18.0); Imm Gran Abs Auto 0.02 X10*3/uL (0.00-0.03); Imm Gran Pct Auto 0.3 % (0.0-0.4); Lymphocytes Absolute Auto 1.7 X10*3/uL (1.2-4.9); Lymphocytes Percent Auto 27.5 % (20-40); Mean Corpuscular HGB Conc 35.2 g/dl (31.0-36.0); Mean Corpuscular Hemoglobin 29.4 pg (27.0-33.0); Mean Corpuscular Volume 83.5 fL (80.0-98.0); Mean Platelet Volume 10.8 fL (9.4-12.4); Monocytes Absolute Auto 0.4 X10*3/uL (0.1-1.2); Monocytes Percent Auto 6.7 % (2-11); Neutrophils Absolute Auto 3.6 x10*3/uL (2.0-8.3); Neutrophils Percent Auto 59.9 % (45-73); Platelet Count 261 X10*3/uL (160-400); Red Blood Count 5.27 X10*6/uL (4.60-5.80); White Blood Count 6.1 X10*3/uL (4.8-10.8)
[2022-01-07 14:23] LABS: Alanine Aminotransferase 61 U/L (0-40); Albumin Level 4.2 g/dL (3.5-5.0); Alkaline Phosphatase 62 U/L (39-117); Anion Gap 14 (12-20); Aspartate Amino Transferase 30 U/L (5-37); Bilirubin Total 0.4 mg/dL (0.0-1.0); Blood Urea Nitrogen 12 mg/dL (9-16); Calcium 9.2 mg/dL (8.4-10.2); Carbon Dioxide 28 mmol/L (22-29); Chloride 101 mmol/L (96-108); Estimated Glomerular Filt Rate > 60; Glucose Random 261 mg/dL (60-115); Potassium 4.4 mmol/L (3.3-5.1); Sodium 139 mmol/L (135-145); Total Protein 6.8 g/dL (6.5-8.0)
== END 2022-01-07 12:17 | disposition home or self-care (01) ==
LOC: HO.HMGCLDS 12:16
PROVIDERS: PCP Internal Medicine; Visit Provider Internal Medicine
DX: E66.09 Other obesity due to excess calories (principal); G25.81 Restless legs syndrome; M54.16 Radiculopathy, lumbar region; R03.0 Elevated blood-pressure reading, without diagnosis of hypertension
CPT/HCPCS: 36415; 80053; 85025

== ENCOUNTER 2022-01-08 08:57 | Outpatient (REF) | payer OTHER, SELFPAY ==
[2022-01-08 13:58] LABS: Estimated Average Glucose 151 mg/dL; Hemoglobin A1c % 6.9 %
== END 2022-01-08 08:58 | disposition home or self-care (01) ==
LOC: HO.HMGCLDS 08:57
PROVIDERS: PCP Internal Medicine; Visit Provider Internal Medicine
DX: R73.9 Hyperglycemia, unspecified (principal)
CPT/HCPCS: 36415; 83036

== ENCOUNTER 2022-06-10 13:13 | Emergency (ER) | payer OTHER, SELFPAY ==
--- NOTE | ~2022-06-10 | XR_ITS ---
EXAMINATION: XR CHEST CLINICAL INFORMATION: Cough and shortness of breath COMPARISON: 11/12/2020 TECHNIQUE: Frontal view of the chest was obtained. FINDINGS: Lungs are well-inflated and clear. Trachea is midline in position. No interstitial disease, consolidation or mass. No pleural effusion or pneumothorax. Cardiac silhouette and pulmonary vessels are normal in size. The mediastinum and seth have normal contour. The visualized bones, and upper abdomen, are unremarkable. XR/XR chest 1V IMPRESSION: Lungs are normal. No acute cardiopulmonary abnormality.
--- NOTE | 2022-06-10 13:19 | ED_ITS ---
HPI - URI/Sore Throat General Chief Complaint: Upper Respiratory Symptoms <ITA Dexter - Last Filed: 06/10/22 13:24> Stated Complaint: Flu symptoms <ITA Dexter - Last Filed: 06/10/22 13:24> Time Seen by Provider: 06/10/22 14:25 <ITA Dexter - Last Filed: 06/10/22 13:24> Source: patient <ITA Dexter - Last Filed: 06/10/22 13:24> patient <Erin Mñuoz CNP - Last Filed: 06/10/22 16:28> Mode of arrival: ambulatory <ITA Dexter - Last Filed: 06/10/22 13:24> ambulatory <Erin Muñoz CNP - Last Filed: 06/10/22 16:28> Limitations: no limitations <Erin Muñoz CNP - Last Filed: 06/10/22 16:28> History of Present Illness HPI Narrative: Patient is a 41-year-old male who presents to the emergency department for evaluation of upper respiratory symptoms. Reporting nonproductive cough, intermittent shortness of breath, congestion, sore throat, myalgias, fever. Reports symptom onset to be 1 week ago. Denies any known sick contacts. <Erin Muñoz CNP - Last Filed: 06/10/22 16:28> MD elicited complaint: fever, cough, sore throat, rhinorrhea and nasal congestion <ITA Dexter - Last Filed: 06/10/22 13:24> Related Data Home Medications: Home Medications Medication Instructions Recorded Confirmed oxycodone-acetaminophen 7.5 mg-325 1 tab PO BID PRN 05/07/22 05/07/22 mg tablet (Percocet) Previous Rx's Medication Instructions Recorded lidocaine 5 % topical patch 1 patch topical DAILY 30 days #30 06/12/21 ea Bp monitor #1 ea 01/08/22 Knee brace left #1 ea 02/04/22 escitalopram oxalate 10 mg tablet 10 mg PO DAILY 90 days #90 tabs 05/07/22 ibuprofen 600 mg tablet 600 mg PO Q8H PRN pain 90 days 05/07/22 #240 tabs ropinirole 1 mg tablet 1 mg PO BEDTIME 90 days #90 tabs 05/07/22 <ITA Dexter - Last Filed: 06/10/22 13:24> Allergies/Adverse Reactions: Allergies Allergy/AdvReac Type Severity Reaction Status Date / Time house dust Allergy Mild cough, Verified 05/07/22 15:09 watery eyes, sneeze hazelnut [HAZELNUT] Allergy Unknown UNKNOWN Verified 05/07/22 15:09 hazelnut Allergy Unknown unknow Uncoded 05/07/22 15:09 <ITA Dexter - Last Filed: 06/10/22 13:24> Review of Systems Review of Systems: Constitutional: Positive fever. Positive chills. No weakness. Positive fatigue. ENT/ Mouth: No Ear Pain, positive Nasal Congestion, positive sore throat, No Rhinorrhea, No Swallowing Difficulty Skin: No rash or itching. Cardiovascular: No chest pain. No palpitations. Respiratory: Positive shortness of breath. Positive cough. No sputum production. Gastrointestinal: No nausea. No vomiting. No diarrhea. No abdominal pain. Genitourinary: No burning micturition. No urinary frequency. Neurologic: No headache. No dizziness. No syncope. No numbness or tingling in the extremities. Musculoskeletal: No muscle pain. No back pain. No joint pain or stiffness. <Erin Muñoz CNP - Last Filed: 06/10/22 16:28> Yes all other systems are reviewed and are negative <Erin Muñoz CNP - Last Filed: 06/10/22 16:28> PMFSH Past Medical History Attestation statement: The following information was validated with the patient. <Erin Muñoz CNP - Last Filed: 06/10/22 16:28> Source: old records reviewed <Erin Muñoz CNP - Last Filed: 06/10/22 16:28> Medical History: Medical History Back pain HTN (hypertension) <ITA Dexter - Last Filed: 06/10/22 13:24> Family History Family History: Family History Other Mental health disorder Substance use disorder <ITA Dexter - Last Filed: 06/10/22 13:24> Social History Social History: Social History Housing: Apartment Alcohol intake: current Alcohol intake frequency: a few times a week Patient Tobacco Use Status: Never used Tobacco e-Cigarette/Vaping Use: Never Used Advance Directives: Yes Advance Directives Information Provided: Yes Advance Directives on File: No Current occupational status: employed Cognitive needs: No Hearing needs: No Vision needs: No <ITA Dexter - Last Filed: 06/10/22 13:24> Physical Exam Vital Signs: Vital Signs: Last Vital Signs Temp 97.6 F 06/10/22 16:12 Pulse 74 06/10/22 16:12 Resp 18 06/10/22 16:12 BP 139/74 06/10/22 16:12 Pulse Ox 95 06/10/22 16:12 O2 Del Method 06/10/22 16:12 BMI result Body Mass Index 37.0 <ITA Dexter - Last Filed: 06/10/22 13:24> Vital Signs: Last Vital Signs Temp 97.6 F 06/10/22 16:12 Pulse 74 06/10/22 16:12 Resp 18 06/10/22 16:12 BP 139/74 06/10/22 16:12 Pulse Ox 95 06/10/22 16:12 O2 Del Method 06/10/22 16:12 BMI result Body Mass Index 37.0 Vital signs have been reviewed as normal and appeared to be correct. Blood pressure normal.? Heart rate normal.? Respiration rate normal. Temperature normal.? Oxygen saturation normal. <Erin Muñoz CNP - Last Filed: 06/10/22 16:28> Appearance: Alert.?Oriented to person, place and time. No acute distress.?Normal affect. Eyes: Pupils equal, round and reactive to light.? ENT: TM normal bilaterally. Pharynx normal.?? Neck: Normal inspection.? Neck supple.??No cervical adenopathy CVS: Heart sounds normal. Normal heart rate and rhythm.? Pulses normal.?? Respiratory: No respiratory distress.? Lung sounds with mild expiratory wheezing bilaterally Abdomen: Soft and non-tender. Normoactive bowel sounds. Skin: Skin warm and dry.? Normal skin color.? ? Extremities: No lower extremity edema.? Neuro: Moves all extremities spontaneously. Sensation intact bilaterally. No motor deficits. Ambulates with normal steady gait. <Erin Muñoz CNP - Last Filed: 06/10/22 16:28> Course Course Course Narrative: RME--41yo M w/PMHx pre-diabetes, HTN noncompliant on medication, presenting to the ED complaining of dry cough, SOB, congestion, rhinorrhea, sore throat, body aches/myalgias, fever 101 x 1 week. Hypertensive in triage, reports self stopped prior antihypertensive, unclear what it was ?Lisinopril. On exam mild end expiratory wheeze, uvula midline, TMs WNL CXR, COVID-19/influenza/RSV, rapid strep, albuterol inhaler ordered in triage <ITA Dexter - Last Filed: 06/10/22 13:24> Medications Administered Discontinued Medications Generic Name Dose Route Start Last Admin Trade Name Freq PRN Reason Stop Dose Admin Albuterol Sulfate 4 puff 06/10/22 13:21 06/10/22 13:32 Albuterol Sulfate 90 Mcg 8 Gm Inhaler INHALE 06/10/22 13:22 4 puff ONCE ONE Administration <ITA Dexter - Last Filed: 06/10/22 13:24> Medications Administered Discontinued Medications Generic Name Dose Route Start Last Admin Trade Name Freq PRN Reason Stop Dose Admin Albuterol Sulfate 4 puff 06/10/22 13:21 06/10/22 13:32 Albuterol Sulfate 90 Mcg 8 Gm Inhaler INHALE 06/10/22 13:22 4 puff ONCE ONE Administration <Erin Muñoz CNP - Last Filed: 06/10/22 16:28> Medical Decision Making Medical Decision Making MDM Narrative: Patient is a 41-year-old male with a past medical history of prediabetes, hypertension presented to the emergency department for evaluation of upper respiratory symptoms. At the time of my examination he is in no apparent respiratory distress. No tachycardia, no tachypnea, no hypoxia. He is afebrile. He does have mild expiratory wheezing bilaterally upon examination. He was given an albuterol inhaler from [facility] evaluation was instructed on appropriate usage, he feels comfortable with the use of this inhaler. Chest x- ray without evidence of pneumonia. COVID-19, influenza, and rapid strep testing are negative. RSV testing today is positive. We discussed symptomatic treatment, rest, hydration, acetaminophen/ibuprofen, OTC cold medications, Robitussin for cough. Discussed worrisome signs and symptoms that would warrant re-evaluation in the emergency department. Advised outpatient follow-up with primary care provider as needed for persistent symptoms. All questions answered. He is stable for discharge. <Erin Muñoz CNP - Last Filed: 06/10/22 16:28> Differential Diagnosis Differential Diagnoses: The differential diagnosis associated with the presentation includes (As noted above) <Erin Muñoz CNP - Last Filed: 06/10/22 16:28> Lab Data MDM Lab Attestation statement: I reviewed the patient's lab results. <Erin Muñoz CNP - Last Filed: 06/10/22 16:28> Labs: Lab Results 06/10/22 06/10/22 Range/Units 14:08 14:08 Influenza Type A (PCR) NEGATIVE (Negative) Influenza Type B (PCR) NEGATIVE (Negative) RSV RNA Qual (PCR) POSITIVE A (Negative) SARS-CoV-2 RNA (RT-PCR) NEGATIVE (Negative) S. pyogenes GrpA CHARLENE Negative (Negative) <ITA Dexter - Last Filed: 06/10/22 13:24> Lab Results 06/10/22 06/10/22 Range/Units 14:08 14:08 Influenza Type A (PCR) NEGATIVE (Negative) Influenza Type B (PCR) NEGATIVE (Negative) RSV RNA Qual (PCR) POSITIVE A (Negative) SARS-CoV-2 RNA (RT-PCR) NEGATIVE (Negative) S. pyogenes GrpA CHARLENE Negative (Negative) <Erin Muñoz CNP - Last Filed: 06/10/22 16:28> Independent Interpretation I performed an independent interpretation of an: Plain X-Ray <Erin Muñoz CNP - Last Filed: 06/10/22 16:28> Interpretation: I have personally interpreted patient's chest x-ray and agree with the radiologist impression. No evidence of pneumonia. <Erin Muñoz CNP - Last Filed: 06/10/22 16:28> Radiology Impression Discussion of test interpretation with radiology: I have reviewed the radiologist's reading. <Erinbennett Muñoz CNP - Last Filed: 06/10/22 16:28> Radiologist Impression: XR/XR chest 1V IMPRESSION: Lungs are normal. No acute cardiopulmonary abnormality. <Erin Muñoz CNP - Last Filed: 06/10/22 16:28> Discharge Plan Discharge Clinical Impression: Respiratory syncytial virus (RSV), Upper respiratory infection <ITA Dexter - Last Filed: 06/10/22 13:24> Patient Disposition: Home, Self-Care <ITA Dexter - Last Filed: 06/10/22 13:24> Additional Instructions: Use albuterol inhaler as instructed, 2 puffs every 4-6 hours as needed for shortness of breath. Be sure to rest, stay well hydrated drinking plenty of fluids, eat small frequent meals. Tylenol/ibuprofen can be used as needed for fever/pain. [id number] cold medications may be helpful as well for symptoms. Saline nasal spray, humidifier may be helpful for nasal congestion. You may return to the emergency department with any new or worsening symptoms or concerns. Follow-up with your primary care provider as needed. Should remain out of school/ work until symptoms have resolved and have been without a fever for 24 hours without the use of Tylenol or ibuprofen. <ITA Dexter - Last Filed: 06/10/22 13:24> Prescriptions: No Action (DME) Bp monitor See Rx Instructions .Route .MEDSUPPLY Qty: 1 0RF Rx Instructions: As directed lidocaine 5 % adhesive patch,medicated 1 patch topical DAILY 30 Days Qty: 30 2RF Rx Instructions: leave on most painful area for up to 12 hrs (DME) Knee brace left Large See Rx Instructions .Route .MEDSUPPLY Qty: 1 0RF Rx Instructions: As directed oxycodone-acetaminophen [Percocet] 7.5-325 mg tablet 1 tab PO BID PRN ropinirole 1 mg tablet 1 mg PO BEDTIME 90 Days Qty: 90 0RF Rx Instructions: administer 1-3 hours before bedtime ibuprofen 600 mg tablet 600 mg PO Q8H PRN (Reason: pain) 90 Days Qty: 240 0RF escitalopram oxalate 10 mg tablet 10 mg PO DAILY 90 Days Qty: 90 3RF <ITA Dexter - Last Filed: 06/10/22 13:24> Referrals: Shannan Mcbride MD [Primary Care Provider] - <ITA Dexter - Last Filed: 06/10/22 13:24> Stand Alone Forms: Work/School Release <ITA Dexter - Last Filed: 06/10/22 13:24>
[2022-06-10 13:20] VITALS: BP 149/101; PULSE 83; RESP 20; TEMP 36.2; O2SAT 97; BMI 37.0
[2022-06-10] MEDS: Albuterol Sulfate 90 MCG 8 GM INHALER 4 PUFF INHALE (13:32)
[2022-06-10 13:36] VITALS: PULSE 87; RESP 16; O2SAT 98
[2022-06-10 14:40] LABS: IDNOW Serial# 6674DD1D; Strep A Nucleic Acid Negative (Negative)
[2022-06-10 15:09] LABS: Influenza A PCR NEGATIVE (Negative); Influenza B PCR NEGATIVE (Negative); Resp Syncy Virus RNA Qual PCR POSITIVE (Negative); SARS COV2 PCR INHOUSE NEGATIVE (Negative)
[2022-06-10 16:12] VITALS: BP 139/74; PULSE 74; RESP 18; TEMP 36.4; O2SAT 95
--- NOTE | 2022-06-10 16:30 | PC.NURSE ---
patient a&ox3, c/o cough, lungs diminished, pt medicated by rt with albuterol, denies pain at this time, pt to be discharged home. pt understands precautions for rsv.
== END 2022-06-10 16:59 | disposition home or self-care (01) ==
PROVIDERS: Physician Assistant; Emergency Provider Student in an Organized Health Care Education/Training Program; PCP Internal Medicine
DX: J06.9 Acute upper respiratory infection, unspecified (principal); B97.4 Respiratory syncytial virus as the cause of diseases classified elsewhere; Z20.822 Contact with and (suspected) exposure to COVID-19
CPT/HCPCS: 0241U; 36415; 71045; 87651; 94640; 99283; 99284

== ENCOUNTER 2022-06-23 18:39 | Emergency (ER) | payer OTHER, SELFPAY ==
--- NOTE | ~2022-06-23 | XR_ITS ---
EXAMINATION: LEFT FOOT AND LEFT ANKLE CLINICAL INFORMATION: Fall, pain COMPARISON: None TECHNIQUE: Left foot 3 views and left ankle 2 views. FINDINGS: Left foot: There is no visible acute fracture, dislocation or subluxation. No bony abnormality. The joint spaces are normal. No bony erosive changes.. The soft tissues are normal. Left ankle: The ankle mortise and subtalar joints are normal. The soft tissues are normal. There is no visible fracture or dislocation. There is a small retrocalcaneal enthesophyte. XR/XR ankle LT min 3V IMPRESSION: 1. Unremarkable left foot exam. 2. Small retrocalcaneal enthesophyte. No visible acute fracture or dislocation left ankle or left foot.
--- NOTE | ~2022-06-23 | XR_ITS ---
EXAMINATION: XR HIP, RIGHT AND PELVIS CLINICAL INFORMATION: Right hip pain, fall COMPARISON: None TECHNIQUE: Frontal and frog lateral radiographs of the right hip and a frontal radiograph of the pelvis were acquired. of the right hip. FINDINGS: Bones and soft tissues are normal. No fracture. Alignment is anatomic. Hip joint space is maintained. No pelvic fracture. The sacrum and sacroiliac joints are intact. The left hip is located. XR/XR hip RT w PEL1V IMPRESSION: No evidence of fracture or subluxation of the right hip or bony pelvis.
--- NOTE | ~2022-06-23 | XR_ITS ---
EXAMINATION: XR KNEE, LEFT CLINICAL INFORMATION: Knee pain, fall COMPARISON: None TECHNIQUE: Four views of the left knee. FINDINGS: Bones and soft tissues are normal. No fracture or joint effusion. Alignment is anatomic. Joint spaces are well maintained. No abnormal soft tissue calcification. XR/XR knee LT 4V IMPRESSION: No acute fracture or subluxation of the left knee.
--- NOTE | ~2022-06-23 | XR_ITS ---
EXAMINATION: LEFT FOOT AND LEFT ANKLE CLINICAL INFORMATION: Fall, pain COMPARISON: None TECHNIQUE: Left foot 3 views and left ankle 2 views. FINDINGS: Left foot: There is no visible acute fracture, dislocation or subluxation. No bony abnormality. The joint spaces are normal. No bony erosive changes.. The soft tissues are normal. Left ankle: The ankle mortise and subtalar joints are normal. The soft tissues are normal. There is no visible fracture or dislocation. There is a small retrocalcaneal enthesophyte. XR/XR foot LT 2V IMPRESSION: 1. Unremarkable left foot exam. 2. Small retrocalcaneal enthesophyte. No visible acute fracture or dislocation left ankle or left foot.
--- NOTE | ~2022-06-23 | XR_ITS ---
EXAMINATION: RIGHT HAND AND WRIST CLINICAL INFORMATION: Fall, pain COMPARISON: None TECHNIQUE: 3 radiographs were acquired imaging the right hand and wrist in the frontal, lateral and oblique position. FINDINGS: No plain film osseous, articular or soft tissue abnormalities are detected in the right hand or wrist. XR/XR hand wrist RT IMPRESSION: No evidence of acute fracture or subluxation of the right hand or right wrist
[2022-06-23 18:51] VITALS: BP 167/106; PULSE 91; RESP 18; TEMP 36.6; O2SAT 94; BMI 37.3
--- NOTE | 2022-06-23 18:51 | ED_ITS ---
HPI - General Adult General Chief complaint: General Medical <ITA Ribeiro - Last Filed: 06/24/22 11:32> Stated complaint: work inj left foot and ankle?fx <ITA Ribeiro - Last Filed: 06/24/22 11:32> Time Seen by Provider: 06/23/22 18:58 <ITA Ribeiro - Last Filed: 06/24/22 11:32> Source: patient <Erin Muñoz CNP - Last Filed: 06/23/22 21:42> Mode of arrival: ambulatory <Erin Muñoz CNP - Last Filed: 06/23/22 21:42> Limitations: no limitations <Erin Muñoz CNP - Last Filed: 06/23/22 21:42> History of Present Illness HPI narrative: Patient is a 41-year-old male presents emergency department for evaluation of a work related injury. 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 States that he scraped his right hip and left knee against a godwin part of metal. States that this was not a high fall. Denies any head strike or loss of consciousness. Denies any use of anticoagulants. Currently is complaining of pain to the right wrist, right hip, left knee, left ankle, left foot. He states he is able to move all extremities. Has been ambulatory since the injury. Expresses concern for fracture which is what prompted him to come to the emergency department, additionally stating he has not had a tetanus shot in the last 16 years and would like this to be updated given the abrasions he sustained from the godwin metal. <Erin Muñoz CNP - Last Filed: 06/23/22 21:42> Related Data Home medications: Home Medications Medication Instructions Recorded Confirmed oxycodone-acetaminophen 7.5 mg-325 1 tab PO BID PRN 05/07/22 05/07/22 mg tablet (Percocet) Previous Rx's Medication Instructions Recorded lidocaine 5 % topical patch 1 patch topical DAILY 30 days #30 06/12/21 ea Bp monitor #1 ea 01/08/22 Knee brace left #1 ea 02/04/22 escitalopram oxalate 10 mg tablet 10 mg PO DAILY 90 days #90 tabs 05/07/22 ibuprofen 600 mg tablet 600 mg PO Q8H PRN pain 90 days 05/07/22 #240 tabs ropinirole 1 mg tablet 1 mg PO BEDTIME 90 days #90 tabs 05/07/22 <ITA Ribeiro - Last Filed: 06/24/22 11:32> Allergies/adverse reactions: Allergies Allergy/AdvReac Type Severity Reaction Status Date / Time house dust Allergy Mild cough, Verified 05/07/22 15:09 watery eyes, sneeze hazelnut [HAZELNUT] Allergy Unknown UNKNOWN Verified 05/07/22 15:09 hazelnut Allergy Unknown unknow Uncoded 05/07/22 15:09 <ITA Ribeiro - Last Filed: 06/24/22 11:32> Review of Systems Review of Systems: Constitutional: No weight loss, fever, chills, weakness or fatigue. Skin: multiple abrasions Cardiovascular: No chest pain, chest pressure or chest discomfort. No palpitations or pedal edema. Respiratory: No shortness of breath, cough or sputum production. Gastrointestinal: No anorexia, nausea, vomiting or diarrhea. No abdominal pain or blood in stool. Genitourinary: No burning micturition. No urinary frequency or incontinence. Musculoskeletal: As noted in HPI Psychiatric: No depression or anxiety. <Erin Muñoz CNP - Last Filed: 06/23/22 21:42> Yes all other systems are reviewed and are negative <Erin Muñoz CNP - Last Filed: 06/23/22 21:42> PMFSH Past Medical History Attestation statement: The following information was validated with the patient. <Erin Muñoz CNP - Last Filed: 06/23/22 21:42> Source: old records reviewed <Erin Muñoz CNP - Last Filed: 06/23/22 21:42> Medical History: Medical History Back pain HTN (hypertension) <ITA Ribeiro - Last Filed: 06/24/22 11:32> Family History Family History: Family History Other Mental health disorder Substance use disorder <ITA Ribeiro - Last Filed: 06/24/22 11:32> Social History Social History: Social History Housing: Apartment Alcohol intake: current Alcohol intake frequency: a few times a week Patient Tobacco Use Status: Never used Tobacco e-Cigarette/Vaping Use: Never Used Advance Directives: No Advance Directives Information Provided: No Current occupational status: employed Cognitive needs: No Hearing needs: No Vision needs: No <ITA Ribeiro - Last Filed: 06/24/22 11:32> Physical Exam ED Vital Signs: Vital Signs - 24 hr 06/23/22 18:51 06/23/22 21:30 Temperature 98 F 97.6 F Pulse Rate 91 80 Respiratory Rate 18 18 Blood Pressure 167/106 H 162/98 H Pulse Oximetry 94 96 Oxygen Delivery Method Room Air Room Air BMI result Body Mass Index 37.3 <ITA Ribeiro - Last Filed: 06/24/22 11:32> Vital Signs - 24 hr 06/23/22 18:51 06/23/22 21:30 Temperature 98 F 97.6 F Pulse Rate 91 80 Respiratory Rate 18 18 Blood Pressure 167/106 H 162/98 H Pulse Oximetry 94 96 Oxygen Delivery Method Room Air Room Air BMI result Body Mass Index 37.3 <Erin Muñoz CNP - Last Filed: 06/23/22 21:42> Appearance: Alert.?Oriented to person, place and time. No acute distress.?Normal affect. Eyes: Pupils equal, round and reactive to light.? ENT: Pharynx normal.?? Neck: Normal inspection.? Neck supple.?? CVS: Heart sounds normal. Normal heart rate and rhythm.? Pulses normal; 2+ radial/DP/ PT pulse bilaterally.?? Respiratory: No respiratory distress.? Lung sounds clear to auscultation bilaterally?? Abdomen: Soft and non-tender. Normoactive bowel sounds. Skin: Skin warm and dry.? Normal skin color.? multiple abrasions and bruising to the left knee, anterior ankle, dorsal foot, and right hip.?? full range of motion present to left hip knee and ankle, in addition to right hip / knee, and right wrist /elbow. Extremities: No lower extremity edema.? Neuro: Moves all extremities spontaneously. Sensation intact bilaterally. CN II- XII intact. No focal neuro deficits. Ambulates with normal steady gait. <Erin Muñoz CNP - Last Filed: 06/23/22 21:42> Course Course Course Narrative: RME: patient fell from loading dock on truck ( not high). patient denies hitting head, loss of consciousness, or any trauma to to chest/abdomen/neck. Patient only complaint is right wrist/ right hip pain and left knee/ankle/foot < ITA Ribeiro - Last Filed: 06/24/22 11:32> Medications Administered Discontinued Medications Generic Name Dose Route Start Last Admin Trade Name Freq PRN Reason Stop Dose Admin Diphtheria/Tetanus/Acell Pertussis 0.5 ml 06/23/22 21:12 06/23/22 21:33 Diphth,Pertus(Acell),Tet Adult 0.5 Ml Syringe IM 06/23/22 21:13 0.5 ml .ONCE ONE Administration <ITA Ribeiro - Last Filed: 06/24/22 11:32> Medications Administered Discontinued Medications Generic Name Dose Route Start Last Admin Trade Name Freq PRN Reason Stop Dose Admin Diphtheria/Tetanus/Acell Pertussis 0.5 ml 06/23/22 21:12 06/23/22 21:33 Diphth,Pertus(Acell),Tet Adult 0.5 Ml Syringe IM 06/23/22 21:13 0.5 ml .ONCE ONE Administration <Erin Muñoz CNP - Last Filed: 06/23/22 21:42> Medical Decision Making Medical Decision Making MDM Narrative: Patient is a 41-year-old male presents emergency department for evaluation of musculoskeletal pain after work-related injury. No head strike or loss of consciousness, no use of anticoagulants. Bilateral upper and lower extremities are neurovascularly intact distally, with full range of motion present. superficial abrasions as noted in physical exam, discussed gentle cleansing with mild non scented soap and warm water, application of bacitracin. Tdap updated. He is ambulatory with steady gait, able to weight bear. Reviewed x-ray imaging as noted below, no acute fractures or dislocation. Patient noted to be hypertensive upon arrival to emergency department; 167/106, upon repeat is 162/98. He reports a history of hypertension, states he has not been on lisinopril in over 7 years. He is currently asymptomatic, no dizziness, lightheadedness, headache, vision changes, neck pain, neck stiffness, chest pain. Patient Advised to contact his primary care provider to arrange for outpatient follow-up and re-evaluation of blood pressure. Discussed worrisome signs and symptoms that would want re-evaluation in the emergency department, he verbalizes understanding of this. patient provided with a return to work note/ <Erin Muñoz CNP - Last Filed: 06/23/22 21:42> Independent Interpretation I performed an independent interpretation of an: Plain X-Ray ( I have personally interpreted x-rays of the right wrist, right hip, left knee, left ankle, left foot and agree with radiologist impression, no evidence of acute fractures or dislocation.) <Erin Muñoz CNP - Last Filed: 06/23/22 21:42> Radiology Impression Discussion of test interpretation with radiology: I have reviewed the radiologist's reading. <Erin Muñoz CNP - Last Filed: 06/23/22 21:42> Radiologist Impression: XR/XR ankle LT min 3V IMPRESSION: 1.? Unremarkable left foot exam. 2.? Small retrocalcaneal enthesophyte. No visible acute fracture or dislocation left ankle or left foot. XR/XR hand wrist RT IMPRESSION: No evidence of acute fracture or subluxation of the right hand or right wrist? XR/XR hip RT w PEL1V IMPRESSION: No evidence of fracture or subluxation of the right hip or bony pelvis. XR/XR knee LT 4V IMPRESSION: No acute fracture or subluxation of the left knee. <Erin Muñoz CNP - Last Filed: 06/23/22 21:42> Prescription Management I considered prescription management with: Pain Medication ( Acetaminophen/NSAID) <Erin Muñoz CNP - Last Filed: 06/23/22 21:42> Discharge Plan Discharge Clinical Impression: Contusion of hip, right, Contusion of knee, left, Sprain of ankle, left, Elevated blood pressure reading <ITA Ribeiro - Last Filed: 01/17/23 11:32> Patient Disposition: Home, Self-Care <ITA Ribeiro - Last Filed: 06/24/22 11:32> Instructions: Ankle Sprain (ED), Heart Healthy Diet (ED), Contusion in Adults (ED), DASH Eating Plan (ED), Hypertension (ED) <ITA Ribeiro - Last Filed: 06/24/22 11:32> Additional Instructions: Your x-rays today were normal, there is no evidence of fracture or dislocation. Please cleanse your abrasions twice daily with warm water and mild non scented soap. You may apply bacitracin to these areas to prevent infection. You can take ibuprofen 200 mg, 3 tablets (600mg) every 6-8 hours as needed for pain, in addition to Tylenol 500 mg, 2 tablets (1,000mg) every 4-6 hours as needed for pain, but not to exceed 3 doses daily (3,000mg).? as discussed, your blood pressure was elevated today, you should contact your primary care provider to discuss elevated blood pressure reading. You have been on lisinopril in the past, he should have re-evaluation of your blood pressure to determine whether medication management is warranted. Be sure to exercise, follow a heart healthy diet. Return to the emergency department with any concerning symptoms such as dizziness, lightheadedness, vision changes, neck pain, chest pain, shortness of breath, difficulty breathing. <ITA Ribeiro - Last Filed: 06/24/22 11:32> Prescriptions: No Action (DME) Bp monitor See Rx Instructions .Route .MEDSUPPLY Qty: 1 0RF Rx Instructions: As directed lidocaine 5 % adhesive patch,medicated 1 patch topical DAILY 30 Days Qty: 30 2RF Rx Instructions: leave on most painful area for up to 12 hrs (DME) Knee brace left Large See Rx Instructions .Route .MEDSUPPLY Qty: 1 0RF Rx Instructions: As directed oxycodone-acetaminophen [Percocet] 7.5-325 mg tablet 1 tab PO BID PRN ropinirole 1 mg tablet 1 mg PO BEDTIME 90 Days Qty: 90 0RF Rx Instructions: administer 1-3 hours before bedtime ibuprofen 600 mg tablet 600 mg PO Q8H PRN (Reason: pain) 90 Days Qty: 240 0RF escitalopram oxalate 10 mg tablet 10 mg PO DAILY 90 Days Qty: 90 3RF <ITA Ribeiro - Last Filed: 06/24/22 11:32> Referrals: Shannan Mcbride MD [Primary Care Provider] - <ITA Ribeiro - Last Filed: 06/24/22 11:32> Stand Alone Forms: Work/School Release <ITA Ribeiro - Last Filed: 06/24/22 11:32> Interventions: ED Discharge Assessment Last Done: 06/23/22 21:45 <IAT Ribeiro - Last Filed: 06/24/22 11:32> Discharge Date/Time: 06/23/22 21:45 <ITA Ribeiro - Last Filed: 06/24/22 11:32>
[2022-06-23 21:30] VITALS: BP 162/98; PULSE 80; RESP 18; TEMP 36.4; O2SAT 96
[2022-06-23] MEDS: Diphth,Pertus(ACell),Tet Adult 0.5 ML SYRINGE IM (21:33)
== END 2022-06-23 21:45 | disposition home or self-care (01) ==
PROVIDERS: Emergency Provider Internal Medicine; PCP Internal Medicine
DX: S80.02XA Contusion of left knee, initial encounter (principal); S70.01XA Contusion of right hip, initial encounter; S93.402A Sprain of unspecified ligament of left ankle, initial encounter; S70.211A Abrasion, right hip, initial encounter; S80.212A Abrasion, left knee, initial encounter; W17.89XA Other fall from one level to another, initial encounter; I10 Essential (primary) hypertension; Y93.9 Activity, unspecified; Y92.59 Other trade areas as the place of occurrence of the external cause; Y99.0 Civilian activity done for income or pay
CPT/HCPCS: 73110; 73130; 73502; 73564; 73610; 73620; 90471; 90715; 99284

== ENCOUNTER 2022-06-28 13:47 | Emergency (ER) | payer OTHER, SELFPAY ==
--- NOTE | ~2022-06-28 | XR_ITS ---
EXAMINATION: LEFT FOREARM 2 VIEWS CHEST WITH LEFT RIBS 7 VIEWS CLINICAL INFORMATION: Pain status post fall COMPARISON: None TECHNIQUE: As above FINDINGS: Minor olecranon spurring. Soft tissue swelling overlying particularly the dorsum of the forearm. Underlying fracture or dislocation grossly. Left rib imaging and chest demonstrates no deformity. Normal appearance of the heart and mediastinum. No pneumothorax or apical cap. No displaced rib deformity. XR/XR ribs LT min 3V w CXR1V IMPRESSION: No acute osseous findings.
--- NOTE | ~2022-06-28 | XR_ITS ---
EXAMINATION: LEFT FOREARM 2 VIEWS CHEST WITH LEFT RIBS 7 VIEWS CLINICAL INFORMATION: Pain status post fall COMPARISON: None TECHNIQUE: As above FINDINGS: Minor olecranon spurring. Soft tissue swelling overlying particularly the dorsum of the forearm. Underlying fracture or dislocation grossly. Left rib imaging and chest demonstrates no deformity. Normal appearance of the heart and mediastinum. No pneumothorax or apical cap. No displaced rib deformity. XR/XR forearm LT 2V IMPRESSION: No acute osseous findings.
[2022-06-28 14:13] VITALS: BP 116/92; PULSE 81; RESP 16; TEMP 36.2; O2SAT 98; BMI 37.3
--- NOTE | 2022-06-28 14:13 | ED.FALL ---
HPI - Fall General Chief Complaint: Fall <Erin Muñoz CNP - Last Filed: 06/28/22 14:19> Stated Complaint: fell down stairs body injuries <Erin Muñoz CNP - Last Filed: 06/28/22 14:19> Time Seen by Provider: 06/28/22 14:21 <Erin Muñoz CNP - Last Filed: 06/28/22 14:19> Source: patient <Hans Shelby MD - Last Filed: 06/28/22 15:49> Mode of arrival: ambulatory <Hans Shelby MD - Last Filed: 06/28/22 15:49> Limitations: no limitations <Hans Shelby MD - Last Filed: 06/28/22 15:49> History of Present Illness HPI Narrative: Fell last Night he is c/o left forearm pain and left chest wall pain,he drove him self To the ED,denies neck pain and Head injury <Hans Shelby MD - Last Filed: 06/28/22 15:49> MD complaint: fall <Hans Shelby MD - Last Filed: 06/28/22 15:49> Onset (ago): day(s) (1) <Hans Shelby MD - Last Filed: 06/28/22 15:49> Fall from: down stairs (#) <Hans Shelby MD - Last Filed: 06/28/22 15:49> Place fall occurred: home <Hans Shelby MD - Last Filed: 06/28/22 15:49> Loss of consciousness: none <Hans Shelby MD - Last Filed: 06/28/22 15:49> Symptoms prior to fall: none <Hans Shelby MD - Last Filed: 06/28/22 15:49> Context: tripped/slipped <Hans Shelby MD - Last Filed: 06/28/22 15:49> Related Data Home Medications: Home Medications Medication Instructions Recorded Confirmed oxycodone-acetaminophen 7.5 mg-325 1 tab PO BID PRN 05/07/22 05/07/22 mg tablet (Percocet) Previous Rx's Medication Instructions Recorded lidocaine 5 % topical patch 1 patch topical DAILY 30 days #30 06/12/21 ea Bp monitor #1 ea 01/08/22 Knee brace left #1 ea 02/04/22 escitalopram oxalate 10 mg tablet 10 mg PO DAILY 90 days #90 tabs 05/07/22 ibuprofen 600 mg tablet 600 mg PO Q8H PRN pain 90 days 05/07/22 #240 tabs ropinirole 1 mg tablet 1 mg PO BEDTIME 90 days #90 tabs 05/07/22 albuterol sulfate 90 mcg/actuation 1 inh inhalation Q4-6H PRN 06/28/22 breath activated powder shortness of breath or wheezing #1 inhaler,sensor (Proair Digihaler) ea cephalexin 500 mg capsule 500 mg PO Q8H #21 caps 06/28/22 <Erin Muñoz CNP - Last Filed: 06/28/22 14:19> Allergies/Adverse Reactions: Allergies Allergy/AdvReac Type Severity Reaction Status Date / Time house dust Allergy Mild cough, Verified 06/28/22 14:17 watery eyes, sneeze hazelnut [HAZELNUT] Allergy Unknown UNKNOWN Verified 06/28/22 14:17 hazelnut Allergy Unknown unknow Uncoded 06/28/22 14:17 <Erin Muñoz CNP - Last Filed: 06/28/22 14:19> Review of Systems Constitutional: Constitutional: Reports no additional constitutional complaints <Hans Shelby MD - Last Filed: 06/28/22 15:49> Eyes: Eyes: Reports no additional eye complaints <Hans Shelby MD - Last Filed: 06/28/22 15:49> ENT: Reports system reviewed and no additional complaints, except as documented <Hans Shelby MD - Last Filed: 06/28/22 15:49> Cardiovascular: Cardiovascular: Reports no additional cardiovascular complaints <Hans Shelby MD - Last Filed: 06/28/22 15:49> Respiratory: Respiratory: Reports no additional respiratory complaints <Hans Shelby MD - Last Filed: 06/28/22 15:49> Gastrointestinal: Gastrointestinal: Reports no additional gastrointestinal complaints <Hans Shelby MD - Last Filed: 06/28/22 15:49> PMFSH Past Medical History Medical History: Medical History Back pain HTN (hypertension) <Erin MuñozTORREY - Last Filed: 06/28/22 14:19> Family History Family History: Family History Other Mental health disorder Substance use disorder <Erin MuñozTORREY - Last Filed: 06/28/22 14:19> Social History Social History: Social History Housing: Apartment Alcohol intake: current Alcohol intake frequency: a few times a week Patient Tobacco Use Status: Never used Tobacco e-Cigarette/Vaping Use: Never Used Advance Directives: No Advance Directives Information Provided: No Current occupational status: employed Cognitive needs: No Hearing needs: No Vision needs: No <Erin MuñozTORREY - Last Filed: 06/28/22 14:19> Physical Exam Vital Signs: Vital Signs: Last Vital Signs Temp 97.1 F 06/28/22 14:13 Pulse 81 06/28/22 14:13 Resp 16 06/28/22 14:13 BP 116/92 H 06/28/22 14:13 Pulse Ox 98 06/28/22 14:13 O2 Del Method 06/28/22 14:13 BMI result Body Mass Index 37.3 <Erin MuñozTORREY - Last Filed: 06/28/22 14:19> Vital Signs: Last Vital Signs Temp 97.1 F 06/28/22 14:13 Pulse 81 06/28/22 14:13 Resp 16 06/28/22 14:13 BP 116/92 H 06/28/22 14:13 Pulse Ox 98 06/28/22 14:13 O2 Del Method 06/28/22 14:13 BMI result Body Mass Index 37.3 <Hans Shelby MD - Last Filed: 06/28/22 15:49> Const: General: cooperative, healthy appearing, comfortable, no acute distress, well developed and awake <Hans Shelby MD - Last Filed: 06/28/22 15:49> Nutritional Appearance: average body habitus and well nourished <Hans Shelby MD - Last Filed: 06/28/22 15:49> Orientation/consciousness: patient oriented x3 <Hans Shelby MD - Last Filed: 06/28/22 15:49> Limitations: no limitations <Hans Shelby MD - Last Filed: 06/28/22 15:49> HEENT: Head: Yes normal to inspection <Hans Shelby MD - Last Filed: 06/28/22 15:49> Ears: hearing grossly normal bilaterally <Hans Shelby MD - Last Filed: 06/28/22 15:49> General nose exam: Normal external nose present <Hans Shelby MD - Last Filed: 06/28/22 15:49> Face and sinus: Yes normal facial exam <Hans Shelby MD - Last Filed: 06/28/22 15:49> Mouth: Normal oral and palatal mucosa present <Hans Shelby MD - Last Filed: 06/28/22 15:49> Throat: Yes posterior oropharynx normal <Hans Shelby MD - Last Filed: 06/28/22 15:49> Neck: Neck: Yes normal visual inspection and Yes full ROM <Hans Shelby MD - Last Filed: 06/28/22 15:49> Chest: Other: tenderness left chest wall <Hans Shelby MD - Last Filed: 06/28/22 15:49> Chest palpation & inspection: tenderness (left chest wall) <Hans Shelby MD - Last Filed: 06/28/22 15:49> Resp: Effort & Inspection: normal respiratory effort and able to speak in complete sentences <Hans Shelby MD - Last Filed: 06/28/22 15:49> Auscultation: clear to auscultation bilaterally <Hans Shelby MD - Last Filed: 06/28/22 15:49> Cardio: Jugular venous distension: no JVD <Hans Shelby MD - Last Filed: 06/28/22 15:49> Rate: regular rate <Hans Shelby MD - Last Filed: 06/28/22 15:49> Rhythm: regular rhythm <Hans Shelby MD - Last Filed: 06/28/22 15:49> GI: Inspection: Yes normal to inspection <Hans Shelby MD - Last Filed: 06/28/22 15:49> Palpation (GI): Soft to palpation, not firm, nontender and no guarding <Hans Shelby MD - Last Filed: 06/28/22 15:49> Skin: General skin exam: no rashes or lesions noted, elasticity normal and turgor normal <Hasn Shelby MD - Last Filed: 06/28/22 15:49> Lesions: no lesions <Hans Shelby MD - Last Filed: 06/28/22 15:49> Rashes: no rashes <Hans Shelby MD - Last Filed: 06/28/22 15:49> Neuro: General: patient oriented x3 <Hans Shelby MD - Last Filed: 06/28/22 15:49> Extrem: Other: tenderness left forearm Exam of left knee showed and abrasion with rtedness (this is the knee is old injury of 5 Days ago) <Hans Shelby MD - Last Filed: 06/28/22 15:49> Course Course Course Narrative: This is an RME: Additional HPI, ROS, PE not included below will be deferred to primary provider. Patient is a 42 year old male who presents to the ED for evaluation after a fall. States last night he slipped down 3 stairs due to inclement weather. Struck left side on bottom of wooden stairs. Denies head strike or loss of consciousness. Complaining of pain to ribs on the left side with mild shortness of breath and left forearm pain. Plan: XR left forearm and L ribs <Erin Muñoz CNP - Last Filed: 06/28/22 14:19> Reevaluation(s) Reevaluation #1: Xray negative OK to d/c he is asking for refill for albuterol,Also I will give him po keflex for cellulitis left knee (injury was 5 days ago) <Hans Shelby MD - Last Filed: 06/28/22 15:49> Time: 15:48 <Hans Shelby MD - Last Filed: 06/28/22 15:49> Medical Decision Making Medical Decision Making MDM Narrative: presented to the Ed c/ fall with left chest wall pain and forearm,will do imaging <Hans Shelby MD - Last Filed: 06/28/22 15:49> Discharge Plan Discharge Clinical Impression: Contusion, Cellulitis of knee, left <Erin Muñoz CNP - Last Filed: 06/28/22 14:19> Patient Disposition: Home, Self-Care <Erin Muñoz CNP - Last Filed: 06/28/22 14:19> Instructions: Cellulitis (ED), Bone Bruise (ED) <Erin Muñoz CNP - Last Filed: 06/28/22 14:19> Prescriptions: New cephalexin 500 mg capsule 500 mg PO Q8H Qty: 21 0RF Proair Digihaler 90 mcg/actuation aero powdr breath act w/sensor 1 inh inhalation Q4-6H PRN (Reason: shortness of breath or wheezing) Qty: 1 0RF No Action (DME) Bp monitor See Rx Instructions .Route .MEDSUPPLY Qty: 1 0RF Rx Instructions: As directed lidocaine 5 % adhesive patch,medicated 1 patch topical DAILY 30 Days Qty: 30 2RF Rx Instructions: leave on most painful area for up to 12 hrs (DME) Knee brace left Large See Rx Instructions .Route .MEDSUPPLY Qty: 1 0RF Rx Instructions: As directed oxycodone-acetaminophen [Percocet] 7.5-325 mg tablet 1 tab PO BID PRN ropinirole 1 mg tablet 1 mg PO BEDTIME 90 Days Qty: 90 0RF Rx Instructions: administer 1-3 hours before bedtime ibuprofen 600 mg tablet 600 mg PO Q8H PRN (Reason: pain) 90 Days Qty: 240 0RF escitalopram oxalate 10 mg tablet 10 mg PO DAILY 90 Days Qty: 90 3RF <Erin Muñoz CNP - Last Filed: 06/28/22 14:19> Referrals: Shannan Mcbride MD [Primary Care Provider] - 2 days <Erin Muñoz CNP - Last Filed: 06/28/22 14:19> Interventions: ED Discharge Assessment Last Done: 06/28/22 15:47 <Erin Muñoz CNP - Last Filed: 06/28/22 14:19>
== END 2022-06-28 15:47 | disposition home or self-care (01) ==
PROVIDERS: Emergency Provider Emergency Medicine; PCP Internal Medicine
DX: S20.212A Contusion of left front wall of thorax, initial encounter (principal); S50.12XA Contusion of left forearm, initial encounter; W10.8XXA Fall (on) (from) other stairs and steps, initial encounter; L03.116 Cellulitis of left lower limb; M25.362 Other instability, left knee; M17.12 Unilateral primary osteoarthritis, left knee; E11.9 Type 2 diabetes mellitus without complications; I10 Essential (primary) hypertension; E66.9 Obesity, unspecified; Z68.37 Body mass index [BMI] 37.0-37.9, adult; Y93.89 Activity, other specified; Y92.038 Other place in apartment as the place of occurrence of the external cause; Y99.9 Unspecified external cause status
CPT/HCPCS: 71101; 73090; 99282; 99283

== ENCOUNTER 2022-09-30 10:12 | Outpatient (REF) | payer OTHER, SELFPAY ==
[2022-09-30 11:28] LABS: MANUAL DIFF FLAG NO
[2022-09-30 12:05] LABS: Basophils Percent Auto 0.7 % (0-2); Eosinophils Absolute Auto 0.3 X10*3/uL (0.0-0.4); Eosinophils Percent Auto 5.4 % (0-4); Hematocrit 46.6 % (42.0-52.0); Hemoglobin 15.7 g/dl (14.0-18.0); Imm Gran Abs Auto 0.02 X10*3/uL (0.00-0.03); Imm Gran Pct Auto 0.4 % (0.0-0.4); Lymphocytes Absolute Auto 1.5 X10*3/uL (1.2-4.9); Lymphocytes Percent Auto 26.4 % (20-40); Mean Corpuscular HGB Conc 33.7 g/dl (31.0-36.0); Mean Corpuscular Hemoglobin 28.1 pg (27.0-33.0); Mean Corpuscular Volume 83.5 fL (80.0-98.0); Mean Platelet Volume 10.4 fL (9.4-12.4); Monocytes Absolute Auto 0.4 X10*3/uL (0.1-1.2); Monocytes Percent Auto 7.4 % (2-11); Neutrophils Absolute Auto 3.3 x10*3/uL (2.0-8.3); Neutrophils Percent Auto 59.7 % (45-73); Platelet Count 272 X10*3/uL (160-400); Red Blood Count 5.58 X10*6/uL (4.60-5.80); Red Cell Distribution Width 13.2 % (11.0-16.0); White Blood Count 5.5 X10*3/uL (4.8-10.8)
[2022-09-30 12:06] LABS: Estimated Average Glucose 108 mg/dL; Hemoglobin A1C 151.5236 umol/L; Hemoglobin A1c % 5.4 %
[2022-09-30 12:11] LABS: Creatinine Urine 174.68 mg/dL; Microalbum/Creatinine Ratio Ur 8.5 ug/mg cr
[2022-09-30 12:22] LABS: Alanine Aminotransferase 26 U/L (0-40); Albumin Level 4.1 g/dL (3.5-5.0); Alkaline Phosphatase 52 U/L (39-117); Anion Gap 8 (12-20); Aspartate Amino Transferase 18 U/L (5-37); Bilirubin Total 0.6 mg/dL (0.0-1.0); Blood Urea Nitrogen 10 mg/dL (9-16); Calcium 9.1 mg/dL (8.4-10.2); Carbon Dioxide 31 mmol/L (22-29); Chloride 105 mmol/L (96-108); Cholesterol 198 mg/dL; Estimated Glomerular Filt Rate > 60; Glucose Fasting 104 mg/dL (60-99); Glucose Random 103 mg/dL (60-115); HDL Cholesterol 31 mg/dL; LDL Cholesterol Calculated 113 mg/dl; Potassium 4.3 mmol/L (3.3-5.1); Sodium 140 mmol/L (135-145); Total Protein 6.3 g/dL (6.5-8.0); Triglycerides 272 mg/dL
[2022-10-02 05:34] LABS: LDL Cholesterol Direct 116 mg/dL (<100)
== END 2022-09-30 10:13 | disposition home or self-care (01) ==
LOC: HO.HMGCLDS 10:12
PROVIDERS: PCP Internal Medicine; Visit Provider Internal Medicine
DX: E11.9 Type 2 diabetes mellitus without complications (principal); E66.09 Other obesity due to excess calories; F33.9 Major depressive disorder, recurrent, unspecified; G25.81 Restless legs syndrome; G89.29 Other chronic pain; M54.16 Radiculopathy, lumbar region; M54.42 Lumbago with sciatica, left side
CPT/HCPCS: 36415; 80053; 80061; 82043; 83036; 83721; 85025

== ENCOUNTER 2022-11-04 16:32 | Emergency (ER) | payer OTHER, SELFPAY ==
[2022-11-04 16:45] VITALS: BP 127/94; PULSE 93; RESP 19; TEMP 36.6; O2SAT 96; BMI 37.6
--- NOTE | 2022-11-04 16:45 | ED.URI ---
HPI - URI/Sore Throat General Chief Complaint: Upper Respiratory Symptoms Stated Complaint: nasal infection Time Seen by Provider: 11/04/22 16:45 Source: patient Mode of arrival: ambulatory Limitations: no limitations History of Present Illness HPI Narrative: 42 yo male with history of HTN, osteoarthritis, obesity, prediabetes, history of seasonal allergies who presents to the ER for evaluation of nasal congestion, sinus pressure and bloody and green nasal discharge for the last 2 weeks. He states he has been taking [id number] [facility] allergies medications with no improvement. He thinks he has a sinus infection. He denies any fever, chills, sore throat, cough. No known sick contacts. MD elicited complaint: nasal congestion and sinus pain Onset (ago): week(s) (2) Consistency: progressively worsening Severity: moderate Description of mucous: green and bloody Able to tolerate fluids by mouth: Yes Exacerbating factors: changing head position Relieving factors: nothing Associated symptoms: headache and nasal congestion Treatments prior to arrival: none Related Data Home Medications Medication Instructions Recorded Confirmed oxycodone-acetaminophen 7.5 mg-325 1 tab PO BID PRN 05/07/22 09/30/22 mg tablet (Percocet) Previous Rx's Medication Instructions Recorded lidocaine 5 % topical patch 1 patch topical DAILY 30 days #30 06/12/21 ea Bp monitor #1 ea 01/08/22 Knee brace left #1 ea 02/04/22 escitalopram oxalate 10 mg tablet 10 mg PO DAILY 90 days #90 tabs 05/07/22 ropinirole 1 mg tablet 1 mg PO BEDTIME 90 days #90 tabs 05/07/22 albuterol sulfate 90 mcg/actuation 1 puff inhalation QID PRN 09/08/22 aerosol inhaler (Proventil HFA) shortness of breath or wheezing #8.5 grams ibuprofen 600 mg tablet 600 mg PO Q8H PRN pain 90 days 10/27/22 #240 tabs albuterol sulfate 90 mcg/actuation 1 inh inhalation QID PRN shortness 10/30/22 aerosol inhaler (Ventolin HFA) of breath or wheezing 30 days #6.7 grams amoxicillin 875 mg-potassium 1 tab PO BID #20 tabs 11/04/22 clavulanate 125 mg tablet fluticasone propionate 50 2 spray intranasal DAILY #16 grams 11/04/22 mcg/actuation nasal spray,suspension (Flonase Allergy Relief) Allergies Allergy/AdvReac Type Severity Reaction Status Date / Time house dust Allergy Mild cough, Verified 11/04/22 16:45 watery eyes, sneeze hazelnut [HAZELNUT] Allergy Unknown UNKNOWN Verified 11/04/22 16:45 hazelnut Allergy Unknown unknow Uncoded 11/04/22 16:45 Review of Systems Review of Systems: Yes all other systems are reviewed and are negative PMFSH Past Medical History Medical History Back pain HTN (hypertension) Family History Family History Other Mental health disorder Substance use disorder Social History Social History Housing: Apartment Alcohol intake: current Alcohol intake frequency: a few times a week Patient Tobacco Use Status: Never used Tobacco e-Cigarette/Vaping Use: Never Used Advance Directives: No Advance Directives Information Provided: No Current occupational status: employed Cognitive needs: No Hearing needs: No Vision needs: No Physical Exam Vital Signs: Vital Signs: Last Vital Signs Temp 98 F 11/04/22 16:45 Pulse 93 11/04/22 16:45 Resp 19 11/04/22 16:45 BP 127/94 H 11/04/22 16:45 Pulse Ox 96 11/04/22 16:45 O2 Del Method Room Air 11/04/22 16:45 BMI result Body Mass Index 37.6 Appearance: Alert. Oriented X3. No acute distress. HEENT: normal external inspection tenderness of the maxillary sinuses bilaterally. Nasal turbinates are erythematous with green nasal discharge. Normal inspection of the bilateral tympanic membranes. Normal inspection of the eyes. CVS: Normal heart rate and rhythm. Pulses normal. Respiratory: No respiratory distress. Lungs clear throughout Skin: Skin warm and dry. Normal skin color. Normal skin turgor. No rashes. Extremities: Normal inspection x4 Neuro: Oriented X 3. Grossly normal, nonfocal Medical Decision Making Medical Decision Making MDM Narrative: 42-year-old male presents the ER for evaluation of nasal congestion, sinus pressure along with green and bloody nasal discharge for the last 2 weeks. Exam and clinical presentation are consistent with acute sinusitis. Will treat with antibiotics and Flonase. He is also encouraged to use nasal saline and Neti pot as tolerated. He was encouraged trouble his primary care doctor and continue his allergy medication. Stable for discharge home. Differential Diagnosis Differential Diagnoses: The differential diagnosis associated with the presentation includes Acute sinusitis, seasonal allergies, epistaxis, viral syndrome, URI External Record Review External record reviewed: Office record, Outpatient record and Prior outpatient labs Prescription Management I considered prescription management with: Antibiotic Chronic Conditions Patient?s care impacted by: Hypertension Critical Care Time Critical Care Time Critical Care Time: No Discharge Plan Discharge Clinical Impression: Sinusitis Patient Disposition: Home, Self-Care Instructions: Sinusitis (ED) Additional Instructions: Take the prescribed antibiotic as directed. Complete the entire course or not miss any doses. Use the prescribed steroid nasal spray as directed. Also recommend using nasal saline 3-4 times per day to keep the nasal mucosa moist. Follow-up with your primary care doctor. If you develop new or worsening symptoms call 911 or come back to the ER for further evaluation. Prescriptions: New amoxicillin-pot clavulanate 875-125 mg tablet 1 tab PO BID Qty: 20 0RF fluticasone propionate [Flonase Allergy Relief] 50 mcg/actuation spray,suspension 2 spray intranasal DAILY Qty: 16 0RF Rx Instructions: administer into each nostril No Action (DME) Bp monitor See Rx Instructions .Route .MEDSUPPLY Qty: 1 0RF Rx Instructions: As directed albuterol sulfate [Proventil HFA] 90 mcg/actuation HFA aerosol inhaler 1 puff inhalation QID PRN (Reason: shortness of breath or wheezing) Qty: 8.5 0RF ibuprofen 600 mg tablet 600 mg PO Q8H PRN (Reason: pain) 90 Days Qty: 240 0RF albuterol sulfate [Ventolin HFA] 90 mcg/actuation HFA aerosol inhaler 1 inh inhalation QID PRN (Reason: shortness of breath or wheezing) 30 Days Qty: 6.7 4RF lidocaine 5 % adhesive patch,medicated 1 patch topical DAILY 30 Days Qty: 30 2RF Rx Instructions: leave on most painful area for up to 12 hrs (DME) Knee brace left Large See Rx Instructions .Route .MEDSUPPLY Qty: 1 0RF Rx Instructions: As directed oxycodone-acetaminophen [Percocet] 7.5-325 mg tablet 1 tab PO BID PRN ropinirole 1 mg tablet 1 mg PO BEDTIME 90 Days Qty: 90 0RF Rx Instructions: administer 1-3 hours before bedtime escitalopram oxalate 10 mg tablet 10 mg PO DAILY 90 Days Qty: 90 3RF Interventions: ED Discharge Assessment Last Done: 11/04/22 17:08 Discharge Date/Time: 11/04/22 17:09
== END 2022-11-04 17:09 | disposition home or self-care (01) ==
PROVIDERS: Emergency Provider Emergency Medicine; PCP Internal Medicine
DX: J32.9 Chronic sinusitis, unspecified (principal); I10 Essential (primary) hypertension; Z79.899 Other long term (current) drug therapy
CPT/HCPCS: 99282; 99283

== ENCOUNTER 2022-12-31 13:57 | Outpatient (AMB) | payer OTHER, MEDICAID, SELFPAY ==
--- NOTE | 2022-12-31 14:02 | AM.OFFWIN_ITS ---
Intake Vital Signs 12/31/22 14:04 Height 5 ft 10 in BP 130/82 Blood Pressure Location Lt brachial Position Sitting Pulse 88 Pulse Source Pulse Oximeter Temp 97.5 F Temp Source Temporal Artery Scan Pulse Oximetry (%) 98 Oxygen Delivery Method Room Air Intake Visit Reasons: EP GI problems (lobby) Intake Note: Pt is here c/o stomach aches since yesterday. Patient Tobacco Use Status: Never used Tobacco Allergies house dust Allergy (Mild, Verified 12/31/22 14:53) cough, watery eyes, sneeze hazelnut [HAZELNUT] Allergy (Unknown, Verified 12/31/22 14:53) UNKNOWN hazelnut Allergy (Unknown, Uncoded 12/31/22 14:53) unknow Medication List - Last Reconciled 12/31/22 by Danial Neves MD albuterol sulfate 90 mcg/actuation (Ventolin HFA) 1 inh inhalation QID PRN 30 days albuterol sulfate 90 mcg/actuation (Proventil HFA) 1 puff inhalation QID PRN amoxicillin-pot clavulanate 875-125 mg 1 tab PO BID [Bp monitor As directed] escitalopram oxalate 10 mg PO DAILY 90 days fluticasone propionate 50 mcg/actuation (Flonase Allergy Relief) 2 sprays intranasal DAILY ibuprofen 600 mg PO Q8H PRN 90 days [Knee brace left As directed] lidocaine 5% 1 patch topical DAILY 30 days oxycodone-acetaminophen 7.5-325 mg (Percocet) 1 tab PO BID PRN ropinirole 1 mg PO BEDTIME 90 days Do you need a note to return to daycare/school/sports/work: Yes HPI EP GI problems (lobby) HPI Details 42-year-old male presents to the office for a sick visit. Patient is been having diarrhea for the last 2 days. Symptoms started after eating food at a fast food restaurant. No blood or mucus in the stool. Unable to work. [facility] Medical History Back pain HTN (hypertension) Family History Other Mental health disorder Substance use disorder Social History Housing: Apartment Alcohol intake: current Alcohol intake frequency: a few times a week Patient Tobacco Use Status: Never used Tobacco e-Cigarette/Vaping Use: Never Used Current occupational status: employed Cognitive needs: No Hearing needs: No Vision needs: No Physical Exam Vital Signs: Last Vital Signs Temp 97.5 F 12/31/22 14:04 Pulse 88 12/31/22 14:04 BP 130/82 12/31/22 14:04 Pulse Ox 98 12/31/22 14:04 Oxygen Delivery Method Room Air 12/31/22 14:04 Const General: cooperative and healthy appearing Nutritional Appearance: well nourished Orientation/consciousness: patient oriented x3 Limitations: no limitations HEENT Head: Yes normal to inspection Eyes General: appearance normal, both eyes and all related structures Neck Neck: Yes normal visual inspection Chest Chest palpation & inspection: normal palpation of entire chest wall Resp Effort & Inspection: normal respiratory effort Neuro General: patient oriented x3 Assessment & Plan Assessment & Plan (1) Gastroenteritis: Code(s): K52.9 - Noninfective gastroenteritis and colitis, unspecified Plan: Self-limiting illness. Increase fluid intake. If symptoms worsen to follow-up here. Note for work provided. Coding Level of Care Code Est Pt Level 3 (56828) Diagnoses Gastroenteritis K52.9
[2022-12-31 14:04] VITALS: BP 130/82; PULSE 88; TEMP 36.4; O2SAT 98
== END 2022-12-31 15:38 | disposition home or self-care (01) ==
PROVIDERS: PCP Internal Medicine; Visit Provider Internal Medicine
DX: K52.9 Noninfective gastroenteritis and colitis, unspecified (principal)
CPT/HCPCS: 99213

== ENCOUNTER 2023-03-01 16:47 | Emergency (ER) | payer OTHER, MEDICAID, SELFPAY ==
--- NOTE | ~2023-03-01 | XR_ITS ---
EXAMINATION: XR WRIST, RIGHT CLINICAL INFORMATION: Fall COMPARISON: None available. TECHNIQUE: PA, lateral, and oblique views of the right wrist. FINDINGS: The bones and soft tissues are normal. No fracture. Alignment is anatomic with normal joint spaces. No erosions or abnormal soft tissue calcifications. Well-defined radiolucency in the scaphoid bone suggesting nonaggressive bone lesion could be a bone cyst or enchondroma. XR/XR wrist RT 2V IMPRESSION: * No radiographic evidence of acute fracture. * Well-defined radiolucency in the scaphoid suggesting nonaggressive bone lesion such as bone cyst or enchondroma.
--- NOTE | ~2023-03-01 | XR_ITS ---
EXAMINATION: XR ANKLE, RIGHT CLINICAL INFORMATION: Fall COMPARISON: None available. TECHNIQUE: AP, lateral, and mortise views of the right ankle. FINDINGS: No fracture. Alignment is anatomic. No erosions. Joint spaces are maintained. Soft tissues are normal. XR/XR ankle RT 2V IMPRESSION: No fracture or dislocation.
--- NOTE | ~2023-03-01 | XR_ITS ---
EXAMINATION: XR SHOULDER, LEFT CLINICAL INFORMATION: Fall COMPARISON: None available. TECHNIQUE: AP external rotation, Grashey, scapular Y, and axillary views of the left shoulder. 4 views. FINDINGS: The bones and soft tissues are normal. No fracture. Glenohumeral and acromioclavicular alignment is anatomic with normal joint space. No abnormal soft tissue calcifications. XR/XR shoulder LT min 2V IMPRESSION: No fracture or dislocation.
[2023-03-01 16:53] VITALS: BP 160/109; PULSE 92; RESP 18; TEMP 36.7; O2SAT 96; BMI 37.3
--- NOTE | 2023-03-01 16:57 | ED.GENADULT ---
HPI - General Adult General Chief complaint: Fall Stated complaint: fall today Time Seen by Provider: 03/01/23 17:05 Source: patient Mode of arrival: ambulatory Limitations: no limitations History of Present Illness HPI narrative: 42-year-old male with a history of back surgery, shoulder surgery presents to the ER with complaints of slip on a liquid on the ground. Patient reports he was at the [employer] mall and he did see a blue liquid on the ground causing him to slip. Patient reports he was able to catch himself with both hands and did not actually hit the ground. He did strike his back on a table. He denies hitting his head. No loss of consciousness. During this incident he believed that he twisted his ankle but cannot recall the mechanism of action. He did twist the left catching himself with his outstretched left arm and right hand and wrist. He is here complaining of right wrist pain, right ankle pain, left shoulder pain. Related Data Home Medications Medication Instructions Recorded Confirmed oxycodone-acetaminophen 7.5 mg-325 1 tab PO BID PRN 05/07/22 12/31/22 mg tablet (Percocet) Previous Rx's Medication Instructions Recorded lidocaine 5 % topical patch 1 patch topical DAILY 30 days #30 06/12/21 ea Bp monitor #1 ea 01/08/22 Knee brace left #1 ea 02/04/22 escitalopram oxalate 10 mg tablet 10 mg PO DAILY 90 days #90 tabs 05/07/22 albuterol sulfate 90 mcg/actuation 1 puff inhalation QID PRN 09/08/22 aerosol inhaler (Proventil HFA) shortness of breath or wheezing #8.5 grams albuterol sulfate 90 mcg/actuation 1 inh inhalation QID PRN shortness 10/30/22 aerosol inhaler (Ventolin HFA) of breath or wheezing 30 days #6.7 grams amoxicillin 875 mg-potassium 1 tab PO BID #20 tabs 11/04/22 clavulanate 125 mg tablet fluticasone propionate 50 2 spray intranasal DAILY #16 grams 11/04/22 mcg/actuation nasal spray,suspension (Flonase Allergy Relief) ibuprofen 600 mg tablet 600 mg PO Q8H PRN pain 90 days 01/15/23 #240 tabs ropinirole 1 mg tablet 1 mg PO BEDTIME 90 days #90 tabs 01/26/23 Allergies Allergy/AdvReac Type Severity Reaction Status Date / Time house dust Allergy Mild cough, Verified 03/01/23 16:53 watery eyes, sneeze hazelnut [HAZELNUT] Allergy Unknown UNKNOWN Verified 03/01/23 16:53 hazelnut Allergy Unknown unknow Uncoded 12/31/22 14:53 Review of Systems Review of Systems: Yes all other systems are reviewed and are negative Constitutional: Constitutional: Reports no additional constitutional complaints, Denies body ache(s), Denies chills, Denies fever(s), Denies headache(s) and Denies weakness Eyes: Eyes: Reports no additional eye complaints and Denies change in vision ENT: Reports system reviewed and no additional complaints, except as documented, Denies dizziness, Denies headache(s), Denies nasal congestion, Denies nasal discharge and Denies neck pain Cardiovascular: Cardiovascular: Reports no additional cardiovascular complaints, Denies chest pain, Denies leg edema and Denies dyspnea Respiratory: Respiratory: Reports no additional respiratory complaints, Denies cough and Denies dyspnea Gastrointestinal: Gastrointestinal: Reports no additional gastrointestinal complaints, Denies abdominal pain, Denies diarrhea, Denies nausea and Denies vomiting Genitourinary: Genitourinary: Denies urinary incontinence Musculoskeletal: Musculoskeletal: Reports no additional musculoskeletal complaints, Denies back pain, Reports arthralgias, Denies joint swelling, Denies limited range of motion, Denies neck pain, Denies numbness and Denies tingling Integumentary/Breasts: Skin/Breast: Reports system reviewed and no additional complaints, except as docu and Denies rash Neurologic: Reports system reviewed and no additional complaints, except as documented, Denies Abnormal speech present, Denies dizziness, Denies headache(s), Denies numbness, Denies tingling and Denies weakness PMFSH Past Medical History Attestation statement: The following information was validated with the patient. Source: old records reviewed and nursing notes reviewed Medical History HTN (hypertension) Back pain Family History Family History Other Mental health disorder Substance use disorder Social History Social History Housing: Apartment Alcohol intake: current Alcohol intake frequency: a few times a week Patient Tobacco Use Status: Never used Tobacco e-Cigarette/Vaping Use: Never Used Advance Directives: No Advance Directives Information Provided: No Current occupational status: employed Cognitive needs: No Hearing needs: No Vision needs: No Physical Exam ED Vital Signs: Vital Signs - 24 hr 03/01/23 16:53 Temperature 98.0 F Pulse Rate 92 Respiratory Rate 18 Blood Pressure 160/109 H Pulse Oximetry 96 Oxygen Delivery Method Room Air BMI result Body Mass Index 37.3 Const General: cooperative, healthy appearing, comfortable and no acute distress Orientation/consciousness: patient oriented x3 Limitations: no limitations HENMT Head: Yes normal to inspection Ears: hearing grossly normal bilaterally General nose exam: Normal external nose present Face and sinus: Yes normal facial exam Mouth: Normal oral and palatal mucosa present Throat: Yes posterior oropharynx normal Eyes General: appearance normal, both eyes and all related structures Pupils: Equal, round and reactive pupils present Neck Neck: Yes normal visual inspection Chest Chest palpation & inspection: normal inspection of the chest Resp Effort & Inspection: normal respiratory effort Auscultation: clear to auscultation bilaterally Cardio Rate: regular rate Rhythm: regular rhythm Peripheral pulses: Peripheral pulses 2+ throughout GI Inspection: Yes normal to inspection Palpation (GI): Soft to palpation and nontender Auscultation: normal bowel sounds Back/Spine/Pelvis Thoracic/Lumbar Spine: thoracic and lumbar spine normal to inspection Skin General skin exam: no rashes or lesions noted Neuro General: patient oriented x3, no focal motor deficits and normal sensation to monofilament Cranial nerves: Yes Equal, round and reactive pupils present Cognition (Neuro): normal cognition Speech: No Abnormal speech present Gait exam (Neuro): Normal gait present Motor exam (neuro): 5/5 motor strength present throughout Extrem Other: tenderness to the anterior right ankle with full range of motion at the ankle both passively and actively. No tenderness over the foot. Normal DP and PT pulses. Normal sensation. No posterior ankle pain. No calf pain. Negative Chow test. Tenderness on palpation to the right wrist over the dorsal aspect with full range of motion both passively and actively. No tenderness over the hand. Normal radial and ulnar pulses. Normal sensation. Tenderness on palpation over the left anterior shoulder with full range of motion both passively and actively. No tenderness over the distal joints with full range of motion. Normal radial and ulnar pulses. Normal sensation General: Yes normal to inspection Course Course Course Narrative: RME: 42 yold male presents to the ED for falling at mall. Mutlipe body parts complaints. Denies any head trauma or loss of concsisouness. WIll be evalauted in [facility] [place]. Reevaluation(s) Reevaluation #1: x-rays show no acute fracture. There is a bone cyst seen on the right wrist x-ray which I told the patient about. Likely strains. Patient can continue supportive care at home. Reviewed worrisome signs and symptoms when to return to the emergency room. Comfortable plan for discharge home. Medical Decision Making Medical Decision Making MDM Narrative: 42-year-old male with a history of back surgery, shoulder surgery presents to the ER with complaints of slip on a liquid on the ground. Patient reports he was at the [employer] and he did see a blue liquid on the ground causing him to slip. Patient reports he was able to catch himself with both hands and did not actually hit the ground. He did strike his back on a table. He denies hitting his head. No loss of consciousness. During this incident he believed that he twisted his ankle but cannot recall the mechanism of action. He did twist the left catching himself with his outstretched left arm and right hand and wrist. He is here complaining of right wrist pain, right ankle pain, left shoulder pain. tenderness to the anterior right ankle with full range of motion at the ankle both passively and actively. No tenderness over the foot. Normal DP and PT pulses. Normal sensation. No posterior ankle pain. No calf pain. Negative Chow test. Tenderness on palpation to the right wrist over the dorsal aspect with full range of motion both passively and actively. No tenderness over the hand. Normal radial and ulnar pulses. Normal sensation. Tenderness on palpation over the left anterior shoulder with full range of motion both passively and actively. No tenderness over the distal joints with full range of motion. Normal radial and ulnar pulses. Normal sensation will obtain x-ray Differential Diagnosis Differential Diagnoses: The differential diagnosis associated with the presentation includes strain, sprain, contusion low concern for vascular injury, fracture, dislocation Independent Interpretation I performed an independent interpretation of an: Plain X-Ray Interpretation: I independently reviewed the x-ray and agree with the rad report Radiology Impression Discussion of test interpretation with radiology: I have reviewed the radiologist's reading. Radiologist Impression: [address] [address] XRay Report Signed Patient: Paula Hillman MR#: [id number] : 1980 Acct:[id number] Age/Sex: 42 / M ADM Date: 03/01/23 Loc: HO.ED Attending Dr: Ordering Physician: Susan Monique NP Date of Service: 03/01/23 Procedure(s): XR ankle RT 2V Accession Number(s): [id number] cc: Shannan Mcbride MD; Susan Monique PHONOGRAPH NEEDLE TIP MAKER~ EXAMINATION: XR ANKLE, RIGHT CLINICAL INFORMATION: Fall COMPARISON: None available. TECHNIQUE: AP, lateral, and mortise views of the right ankle. FINDINGS: No fracture. Alignment is anatomic. No erosions. Joint spaces are maintained. Soft tissues are normal. XR/XR ankle RT 2V IMPRESSION: No fracture or dislocation. [address] [address] XRay Report Signed Patient: Paula Hillman MR#: [id number] : 1980 Acct:[id number] Age/Sex: 42 / M ADM Date: 03/01/23 Loc: HO.ED Attending Dr: Ordering Physician: Susan Monique NP Date of Service: 03/01/23 Procedure(s): XR shoulder LT min 2V Accession Number(s): [id number] cc: Shannan Mcbride MD; Susan Monique PHONOGRAPH NEEDLE TIP MAKER~ EXAMINATION: XR SHOULDER, LEFT CLINICAL INFORMATION: Fall COMPARISON: None available. TECHNIQUE: AP external rotation, Grashey, scapular Y, and axillary views of the left shoulder. 4 views. FINDINGS: The bones and soft tissues are normal. No fracture. Glenohumeral and acromioclavicular alignment is anatomic with normal joint space. No abnormal soft tissue calcifications. XR/XR shoulder LT min 2V IMPRESSION: No fracture or dislocation. [address] [address] XRay Report Signed Patient: Paula Hillman MR#: [id number] : 1980 Acct:[id number] Age/Sex: 42 / M ADM Date: 03/01/23 Loc: HO.ED Attending Dr: Ordering Physician: Susan Monique NP Date of Service: 03/01/23 Procedure(s): XR wrist RT 2V Accession Number(s): [id number] cc: Shannan Mcbride MD; Susan Monique NP~ EXAMINATION: XR WRIST, RIGHT CLINICAL INFORMATION: Fall COMPARISON: None available. TECHNIQUE: PA, lateral, and oblique views of the right wrist. FINDINGS: The bones and soft tissues are normal. No fracture. Alignment is anatomic with normal joint spaces. No erosions or abnormal soft tissue calcifications. Well-defined radiolucency in the scaphoid bone suggesting nonaggressive bone lesion could be a bone cyst or enchondroma. XR/XR wrist RT 2V IMPRESSION: * No radiographic evidence of acute fracture. * Well-defined radiolucency in the scaphoid suggesting nonaggressive bone lesion such as bone cyst or enchondroma. Discharge Plan Discharge Clinical Impression: Left shoulder strain, Muscle strain of right wrist, Sprain of ankle, right Patient Disposition: Home, Self-Care Instructions: Ankle Sprain (ED), Muscle Strain (ED) Additional Instructions: your x-rays of your shoulder and ankle are normal. Your x-ray of your risk shows a bone cyst. You can follow-up with her primary care doctor in regards to this if you desire. There is no signs of broken bones in your wrist. Take Motrin or Tylenol as needed for pain Apply ice to the affected areas Rest, elevate as needed see your doctor for any continued symptoms your blood pressure was elevated while you are here in the emergency room. It is recommended that you follow-up with your primary care doctor for a blood pressure recheck. Return for chest pain, headache, vomiting, vision changes. Prescriptions: No Action (DME) Bp monitor See Rx Instructions .Route .MEDSUPPLY Qty: 1 0RF Rx Instructions: As directed albuterol sulfate [Proventil HFA] 90 mcg/actuation HFA aerosol inhaler 1 puff inhalation QID PRN (Reason: shortness of breath or wheezing) Qty: 8.5 0RF albuterol sulfate [Ventolin HFA] 90 mcg/actuation HFA aerosol inhaler 1 inh inhalation QID PRN (Reason: shortness of breath or wheezing) 30 Days Qty: 6.7 4RF ibuprofen 600 mg tablet 600 mg PO Q8H PRN (Reason: pain) 90 Days Qty: 240 0RF ropinirole 1 mg tablet 1 mg PO BEDTIME 90 Days Qty: 90 0RF Rx Instructions: administer 1-3 hours before bedtime amoxicillin-pot clavulanate 875-125 mg tablet 1 tab PO BID Qty: 20 0RF fluticasone propionate [Flonase Allergy Relief] 50 mcg/actuation spray,suspension 2 spray intranasal DAILY Qty: 16 0RF Rx Instructions: administer into each nostril lidocaine 5 % adhesive patch,medicated 1 patch topical DAILY 30 Days Qty: 30 2RF Rx Instructions: leave on most painful area for up to 12 hrs (DME) Knee brace left Large See Rx Instructions .Route .MEDSUPPLY Qty: 1 0RF Rx Instructions: As directed oxycodone-acetaminophen [Percocet] 7.5-325 mg tablet 1 tab PO BID PRN escitalopram oxalate 10 mg tablet 10 mg PO DAILY 90 Days Qty: 90 3RF Referrals: Shannan Mcbride MD [Primary Care Provider] - 1 week Stand Alone Forms: Work/School Release Interventions: ED Discharge Assessment Last Done: 03/01/23 17:54 Discharge Date/Time: 03/01/23 17:54
== END 2023-03-01 17:54 | disposition home or self-care (01) ==
PROVIDERS: Emergency Provider Emergency Medicine Emergency Medical Services; PCP Internal Medicine
DX: S99.911A Unspecified injury of right ankle, initial encounter (principal); M25.571 Pain in right ankle and joints of right foot; M25.531 Pain in right wrist; M25.511 Pain in right shoulder; X58.XXXA Exposure to other specified factors, initial encounter; Y93.9 Activity, unspecified; Y92.9 Unspecified place or not applicable; Y99.9 Unspecified external cause status; Z79.899 Other long term (current) drug therapy
CPT/HCPCS: 73030; 73100; 73600; 99283

== ENCOUNTER 2023-03-13 09:52 | Outpatient (AMB) | payer OTHER, MEDICAID, SELFPAY ==
--- NOTE | 2023-03-13 09:55 | MHC.PC.OV ---
Vital Signs 03/13/23 09:57 Height 5 ft 10 in Weight 289 lb 8 oz BMI 41.5 BP 132/78 Blood Pressure Location Rt brachial Position Sitting Pulse 86 Pulse Source Pulse Oximeter Pulse Oximetry (%) 96 Oxygen Delivery Method Room Air Intake Visit Reasons: Elevated BP Allergies house dust Allergy (Mild, Verified 03/13/23 10:00) cough, watery eyes, sneeze hazelnut [HAZELNUT] Allergy (Unknown, Verified 03/13/23 10:00) UNKNOWN hazelnut Allergy (Unknown, Uncoded 12/31/22 14:53) unknow Medication List - Last Reconciled 03/13/23 by Shannan Mcbride MD albuterol sulfate 90 mcg/actuation (Ventolin HFA) 1 inh inhalation QID PRN 30 days albuterol sulfate 90 mcg/actuation (Proventil HFA) 1 puff inhalation QID PRN [Bp monitor As directed] escitalopram oxalate 10 mg PO DAILY 90 days ibuprofen 600 mg PO Q8H PRN 90 days [Knee brace left As directed] oxycodone-acetaminophen 7.5-325 mg (Percocet) 1 tab PO BID PRN ropinirole 1 mg PO BEDTIME 90 days Tobacco use date assessed: 03/13/23 Dental Screening Dental Screen Date: 03/13/23 Did you have a dental visit in the last 12 months?: Yes Did you have a dental problem in the last 6 months where you did not have access to dental care?: No Was dental information given to patient?: Patient has dentist HPI Elevated BP HPI Details Patient is a 42-year-old gentleman came in today to be evaluated for high blood pressure Patient blood pressure was 160 systolic on 03/01/2023 And today it is 132/78 He brought in his blood pressure monitor which is showing 160 systolic. Patient has been under lot of stress he admits, last time he was seen I started him on Lexapro 10 mg which he never took. He also has gained a lot of weight. Patient says that he has a new job now and he is going to start working on his weight. I am starting him on atenolol 25 mg Patient is to return in 3 weeks for follow-up, he will also have labs today. He has no headache no chest pains no nausea vomiting diarrhea At the end of the day his ankles do swell up. He is complaining of slight blurring of vision and has not seen eye doctor in a while. Referral placed for him to see an Ophthalmology. [facility] Medical History HTN (hypertension) Back pain Family History Other Mental health disorder Substance use disorder Social History Housing: Apartment Alcohol intake: current Alcohol intake frequency: a few times a week Patient Tobacco Use Status: Never used Tobacco e-Cigarette/Vaping Use: Never Used Current occupational status: employed Cognitive needs: No Hearing needs: No Vision needs: No Questionnaire PHQ-9 Over the last 2 weeks, how often have you been bothered by any of the following problems? 1. Little interest or pleasure in doing things: several days 2. Feeling down, depressed, or hopeless: not at all 3. Trouble falling or staying asleep, or sleeping too much: nearly every day 4. Feeling tired or having little energy: not at all 5. Poor appetite or overeating: several days 6. Feeling bad about yourself - or that you are a failure or have let yourself or your family down: not at all 7. Trouble concentrating on things, such as reading the newspaper or watching television: several days 8. Moving or speaking so slowly that other people could have noticed. Or the opposite - being so fidgety or restless that you have been moving around a lot more than usual: not at all 9. Thoughts that you would be better off or of hurting yourself in some way: not at all Total score: 6 Depression Screening Interpretation: Negative Depression Screening Done: Yes 62805 - PHQ-9 Billing: Yes Source: Developed by Drs. Zack Caballero, Nadine King, Rob Brewer and colleagues, with an educational della from [employer] (by [email or web address]). Thrive Questionnaire Date Thrive assessed: 03/13/23 I am a: Patient What is your living situation today?: I have a steady place to live Within the past 12 months, did the food you bought not last and you didn't have the money to get more?: Never true Within the past 12 months, did you worry whether your food would run out before you got money to buy more?: Never true Do you have trouble paying for medicines?: No Do you have trouble getting transportation to medical appointments?: No Do you have trouble paying your heating and electricity bill?: No Do you have trouble taking care of your child, family member or friend?: No Do you have trouble with day-to-day activities such as bathing, preparing meals, shopping, managing finances, etc.?: No Are you currently unemployed and looking for a job?: No Are you interested in more education?: No Please select the resources that you would like help with: Education ANIYA-7 AMB Questionnaire ANIYA-7 Date ANIYA - 7 assessed: 03/13/23 Source: Developed by Drs. Zack Caballero, Nadine King, Rob Brewer and colleagues, with an educational della from [employer] (by [email or web address]). ANIYA-7 Assessment Billing ANIYA-7 Assessment Tool: pt declined-do not bill Review of Systems Const Denies chills, Denies excessive sweating, Denies fever(s) and Denies poor appetite Eyes Denies eye pain ENT Denies disequilibrium, Denies sore throat, Denies throat swelling and Denies tongue swelling Card Denies chest pain at rest, Denies radiating jaw, neck or arm pain and Denies paroxysmal nocturnal dyspnea Resp Denies cough and Denies hemoptysis GI Denies melena, Denies change in stool character, Denies coffee ground emesis and Denies vomiting Musc Reports as per HPI Skin/Breast Reports as per HPI Neuro Denies tremor(s) and Denies disequilibrium Endo Denies cold intolerance and Denies excessive sweating Aller/Immun Denies throat swelling and Denies tongue swelling Physical exam (Primary Care) Vital Signs: Last Vital Signs Pulse 86 03/13/23 09:57 BP 132/78 03/13/23 09:57 Pulse Ox 96 03/13/23 09:57 Oxygen Delivery Method Room Air 03/13/23 09:57 BMI result Body Mass Index 41.5 Tobacco/Smoking Status: Tobacco use Status Tobacco use date assessed 03/13/23 03/13/23 10:02 Patient Tobacco Use Status Never used Tobacco 03/13/23 10:02 e-Cigarette/Vaping Use Never Used 03/13/23 10:02 PHQ-9: PHQ-9 Score PHQ-9: Total score 6 03/13/23 10:18 Depression Screening Interpretation: Negative Thrive Assessment: Date of Thrive Assessment Date Thrive assessed 03/13/23 03/13/23 10:18 Const General: cooperative, comfortable and no acute distress Orientation/consciousness: patient oriented x3 HENMT Head: Yes normocephalic and Yes atraumatic Ears: hearing grossly normal bilaterally Eyes General: appearance normal, both eyes and all related structures Neck Neck: Yes no lymphadenopathy and No tracheal deviation Resp Effort & Inspection: normal respiratory effort, able to speak in complete sentences and no audible wheezes Cardio Rhythm: regular rhythm Heart sounds: S1 normal heart sound present and S2 normal heart sound present GI Palpation (GI): Soft to palpation and nontender Auscultation: normal bowel sounds Skin General skin exam: turgor normal Neuro General: patient oriented x3 and moves all extremities Gait exam (Neuro): Normal gait present Psych Affect: normal affect Attitude: cooperative Assessment and Plan Assessment & Plan (1) Hypertension, essential: Code(s): I10 - Essential (primary) hypertension (2) Major depression, recurrent: Code(s): F33.9 - Major depressive disorder, recurrent, unspecified Qualifiers: Active/Remission status: in partial remission Qualified Code(s): F33.41 - Major depressive disorder, recurrent, in partial remission (3) Morbid obesity due to excess calories: Code(s): E66.01 - Morbid (severe) obesity due to excess calories (4) Blurring of vision: Code(s): H53.8 - Other visual disturbances (5) Diet-controlled diabetes mellitus: Code(s): E11.9 - Type 2 diabetes mellitus without complications Plan Patient is a 42-year-old gentleman came in today to be evaluated for high blood pressure Patient blood pressure was 160 systolic on 03/01/2023 And today it is 132/78 He brought in his blood pressure monitor which is showing 160 systolic. Patient has been under lot of stress he admits, last time he was seen I started him on Lexapro 10 mg which he never took. Patient have a history of major depression but is reluctant to take medication He also has gained a lot of weight. Patient says that he has a new job now and he is going to start working on his weight. . I am starting him on atenolol 25 mg Patient is to return in 3 weeks for follow-up, he will also have labs today. He has no headache no chest pains no nausea vomiting diarrhea At the end of the day his ankles do swell up. He is complaining of slight blurring of vision and has not seen eye doctor in a while. Referral placed for him to see an Ophthalmology. Orders: Referrals Ophthalmology Referral E11.9 - Type 2 diabetes mellitus without complications, H53.8 - Other visual disturbances, I10 - Essential (primary) hypertension Medications: New atenolol 25 mg PO DAILY 30 tabs 0RF Discontinued escitalopram oxalate Discontinued Reason: Doctor's Order 10 mg PO DAILY 90 days 90 tabs 3RF Coding Level of Care Code Est Pt Level 4 (14334) Diagnoses Hypertension, essential I10 Recurrent major depressive disorder, in partial remission F33.41 Active/Remission status: in partial remission Morbid obesity due to excess calories E66.01 Blurring of vision H53.8 Diet-controlled diabetes mellitus E11.9
[2023-03-13 09:57] VITALS: BP 132/78; PULSE 86; O2SAT 96; BMI 41.5
== END 2023-03-13 14:22 | disposition home or self-care (01) ==
PROVIDERS: PCP Internal Medicine; Visit Provider Internal Medicine
DX: E11.9 Type 2 diabetes mellitus without complications (principal); F33.41 Major depressive disorder, recurrent, in partial remission; E66.01 Morbid (severe) obesity due to excess calories; Z68.41 Body mass index [BMI] 40.0-44.9, adult; I10 Essential (primary) hypertension; H53.8 Other visual disturbances
CPT/HCPCS: 99214

== ENCOUNTER 2023-03-13 10:11 | Outpatient (REF) | payer MEDICAID, SELFPAY | END 2023-03-13 10:12 | disposition home or self-care (01) | LOC: HO.HMGCLDS 10:11 | PROVIDERS: PCP Internal Medicine; Visit Provider Internal Medicine | DX: E11.9 Type 2 diabetes mellitus without complications (principal) | CPT/HCPCS: 36415; 80053; 83036 ==

== ENCOUNTER 2023-04-01 08:59 | Outpatient (AMB) | payer OTHER, MEDICAID, SELFPAY ==
--- NOTE | 2023-04-01 09:03 | A.OFFPC_ITS ---
Vital Signs 3 04/01/23 09:05 Height 5 ft 10 in Weight 290 lb 6 oz BMI 41.7 BP 130/90 H Blood Pressure Location Rt brachial Position Sitting Pulse 70 Pulse Source Pulse Oximeter Pulse Oximetry (%) 97 Oxygen Delivery Method Room Air Intake Visit Reasons: Annual PE Allergies house dust Allergy (Mild, Verified 04/01/23 09:07) cough, watery eyes, sneeze hazelnut [HAZELNUT] Allergy (Unknown, Verified 04/01/23 09:07) UNKNOWN hazelnut Allergy (Unknown, Uncoded 12/31/22 14:53) unknow Medication List - Last Reconciled 04/01/23 by Shannan Mcbride MD albuterol sulfate 90 mcg/actuation (Ventolin HFA) 1 inh inhalation QID PRN 30 days albuterol sulfate 90 mcg/actuation (Proventil HFA) 1 puff inhalation QID PRN atenolol 25 mg PO DAILY [Bp monitor As directed] ibuprofen 600 mg PO Q8H PRN 90 days [Knee brace left As directed] oxycodone-acetaminophen 7.5-325 mg (Percocet) 1 tab PO BID PRN ropinirole 1 mg PO BEDTIME 90 days Tobacco use date assessed: 04/01/23 Dental Screening Dental Screen Date: 04/01/23 Did you have a dental visit in the last 12 months?: Yes Did you have a dental problem in the last 6 months where you did not have access to dental care?: No Was dental information given to patient?: Patient has dentist HPI Annual PE 2 HPI0 Details Patient is 42-year-old gentleman came in for physical examination Hypertension: Patient is on atenolol 25 mg now blood pressure is still slightly 130/90 Will continue to observe Patient is morbidly obese with BMI of 41.7, trying to lose weight. Patient suffers from severe osteoarthritis left knee and back pain He is requesting a handicap placard, I have filled the form Labs done recently reviewed Diabetes mellitus diet controlled, hemoglobin A1c is 5.5 Follow-up 3 months [facility]LY [facility], [facility] Medical History HTN (hypertension) Back pain Family History Other Mental health disorder Substance use disorder Social History Housing: Apartment Alcohol intake: current Alcohol intake frequency: a few times a week Patient Tobacco Use Status: Never used Tobacco e-Cigarette/Vaping Use: Never Used Current occupational status: employed Cognitive needs: No Hearing needs: No Vision needs: No Questionnaire PHQ-9 Over the last 2 weeks, how often have you been bothered by any of the following problems? 1. Little interest or pleasure in doing things: several days 2. Feeling down, depressed, or hopeless: several days 3. Trouble falling or staying asleep, or sleeping too much: several days 4. Feeling tired or having little energy: several days 5. Poor appetite or overeating: several days 6. Feeling bad about yourself - or that you are a failure or have let yourself or your family down: not at all 7. Trouble concentrating on things, such as reading the newspaper or watching television: not at all 8. Moving or speaking so slowly that other people could have noticed. Or the opposite - being so fidgety or restless that you have been moving around a lot more than usual: not at all 9. Thoughts that you would be better off or of hurting yourself in some way: not at all Total score: 5 Depression Screening Interpretation: Negative Depression Screening Done: Yes 33435 - PHQ-9 Billing: Yes Source: Developed by Drs. Zack Caballero, Nadine King, Rob Brewer and colleagues, with an educational della from [employer]. Thrive Questionnaire Date Thrive assessed: 03/13/23 AUDIT C Alcohol Use Questionnaire (AUDIT-C) 1. How often do you have a drink containing alcohol?: Never 3. How often do you have six or more drinks on one occasion?: Never Total Score: 0 Score Reviewed/Action Taken: Yes ANIYA-7 AMB Questionnaire ANIYA-7 Date ANIYA - 7 assessed: 04/08/23 Feeling nervous, anxious, or on edge: 0 = Not at all Not being able to stop or control worryin = Not at all Worrying too much about different things: 3 = Nearly every day Trouble relaxin = Several days Being so restless that it is hard to sit still: 0 = Not at all Becoming easily annoyed or irritable: 0 = Not at all Feeling afraid as if something awful might happen: 0 = Not at all Total ANIYA-7 score (0-4 normal; 5-9 mild; 10-14 moderate; 15-21 severe): 4 Source: Developed by Drs. Zack Caballero, Nadine King, Rob Brewer and colleagues, with an educational della from [employer]. ANIYA-7 Assessment Billing ANIYA-7 Assessment Tool: ANIYA-7 Assessment 12745 Review of Systems Const Denies chills, Denies fever(s) and Denies headache(s) Eyes Denies blurry vision ENT Denies headache(s), Denies nasal discharge, Denies nasal obstruction, Denies odynophagia and Denies sinus pain Card Denies chest pain at rest and Denies chest pain with activity Resp Denies cough and Denies hemoptysis GI Denies diarrhea, Denies odynophagia, Denies vomiting and Denies hematemesis Reports as per HPI Musc Denies abnormal gait Skin/Breast Reports as per HPI Neuro Denies Neuro-related abnormal movements, Denies Abnormal speech present, Denies abnormal gait, Denies headache(s) and Denies Sensory deficit (Neuro) Psych Denies mood swings and Denies paranoia Endo Reports as per HPI Edilberto/Lymph Reports as per HPI Aller/Immun Reports as per HPI Physical exam (Primary Care) Vital Signs: Last Vital Signs Pulse 70 04/01/23 09:05 BP 130/90 H 04/01/23 09:05 Pulse Ox 97 04/01/23 09:05 Oxygen Delivery Method Room Air 04/01/23 09:05 BMI result Body Mass Index 41.7 Tobacco/Smoking Status: Tobacco use Status Tobacco use date assessed 04/01/23 04/01/23 09:08 Patient Tobacco Use Status Never used Tobacco 04/01/23 09:08 e-Cigarette/Vaping Use Never Used 04/01/23 09:08 PHQ-9: PHQ-9 Score PHQ-9: Total score 5 04/01/23 09:24 Depression Screening Interpretation: Negative Thrive Assessment: Date of Thrive Assessment Date Thrive assessed 03/13/23 04/01/23 09:08 Const General: cooperative, comfortable and no acute distress Orientation/consciousness: patient oriented x3 HENMT Head: Yes normocephalic and Yes atraumatic Eyes General: appearance normal, both eyes and all related structures Pupils: Equal, round and reactive pupils present EOM: EOMs intact bilaterally Neck Neck: Yes supple and No lymphadenopathy Thyroid: Thyroid normal Lymphatic: no lymphadenopathy noted Resp Effort & Inspection: normal respiratory effort and able to speak in complete sentences Auscultation: clear to auscultation bilaterally Cardio Heart sounds: S1 normal heart sound present and S2 normal heart sound present GI Palpation (GI): Soft to palpation and nontender Auscultation: normal bowel sounds General: Yes no CVA tenderness Back/Spine/Pelvis Back: no CVA tenderness Skin General skin exam: elasticity normal and turgor normal Neuro General: patient oriented x3 and gait normal Cranial nerves: Yes Equal, round and reactive pupils present Speech: No Abnormal speech present Sensory Exam: No Sensory deficit (Neuro) Coordination: tandem gait normal and Romberg test negative Extrem General: Yes normal exam except as noted and No edema Knee images: 2 1. Left knee in brace Assessment and Plan Assessment & Plan (1) Encounter for general adult medical examination with abnormal findings: Code(s): Z00.01 - Encounter for general adult medical examination with abnormal findings (2) Morbid obesity due to excess calories: Code(s): E66.01 - Morbid (severe) obesity due to excess calories (3) Diet-controlled diabetes mellitus: Code(s): E11.9 - Type 2 diabetes mellitus without complications (4) Hypertension, essential: Code(s): I10 - Essential (primary) hypertension (5) Osteoarthritis of left knee: Code(s): M17.12 - Unilateral primary osteoarthritis, left knee Qualifiers: Osteoarthritis type: post-traumatic Qualified Code(s): M17.32 - Unilateral post-traumatic osteoarthritis, left knee (6) Instability of left knee joint: Code(s): M25.362 - Other instability, left knee (7) Spinal stenosis at L4-L5 level: Code(s): M48.061 - Spinal stenosis, lumbar region without neurogenic claudication (8) Left leg paresthesias: Code(s): R20.2 - Paresthesia of skin (9) Chronic back pain: Code(s): M54.9 - Dorsalgia, unspecified; G89.29 - Other chronic pain Qualifiers: Back pain laterality: left Back pain location: low back pain Sciatica laterality: sciatica of left side Sciatica presence: with sciatica Qualified Code(s): M54.42 - Lumbago with sciatica, left side; G89.29 - Other chronic pain Plan Patient is 42-year-old gentleman came in for physical examination Hypertension: Patient is on atenolol 25 mg now blood pressure is still slightly 130/90 Will continue to observe Patient is morbidly obese with BMI of 41.7, trying to lose weight. Patient suffers from severe osteoarthritis left knee and back pain He is requesting a handicap placard, I have filled the form Labs done recently reviewed Diabetes mellitus diet controlled, hemoglobin A1c is 5.5 Follow-up 3 months Medications: Refilled 2 atenolol 25 mg PO DAILY 90 tabs 1RF Coding Level of Care Code Est Pt Prev Care 40-64y(79770) Diagnoses Encounter for general adult medical examination with abnormal findings Z00.01 Morbid obesity due to excess calories E66.01 Diet-controlled diabetes mellitus E11.9 Hypertension, essential I10 Post-traumatic osteoarthritis of left knee M17.32 Osteoarthritis type: post-traumatic Instability of left knee joint M25.362 Spinal stenosis at L4-L5 level M48.061 Left leg paresthesias R20.2 Chronic back pain M54.42; G89.29 Back pain laterality: left Back pain location: low back pain Sciatica laterality: sciatica of left side Sciatica presence: with sciatica Additional Codes ANIYA-7 Assessment Billing - ANIYA-7 Assessment Tool: ANIYA-7 Assessment [id number] ([id number])
[2023-04-01 09:05] VITALS: BP 130/90; PULSE 70; O2SAT 97; BMI 41.7
== END 2023-04-01 13:00 | disposition home or self-care (01) ==
PROVIDERS: Visit Provider Internal Medicine
DX: Z00.00 Encounter for general adult medical examination without abnormal findings (principal); E66.01 Morbid (severe) obesity due to excess calories; E11.9 Type 2 diabetes mellitus without complications; Z68.41 Body mass index [BMI] 40.0-44.9, adult; I10 Essential (primary) hypertension; M17.32 Unilateral post-traumatic osteoarthritis, left knee; M25.362 Other instability, left knee; M48.061 Spinal stenosis, lumbar region without neurogenic claudication; R20.2 Paresthesia of skin; M54.42 Lumbago with sciatica, left side; G89.29 Other chronic pain
CPT/HCPCS: 99396

== ENCOUNTER 2023-07-01 15:26 | Outpatient (AMB) | payer OTHER, SELFPAY ==
[2023-07-01 15:33] VITALS: BP 162/110; PULSE 78; O2SAT 97; BMI 42.8
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
== END 2023-07-01 16:03 | disposition home or self-care (01) ==
PROVIDERS: PCP Internal Medicine; Visit Provider Internal Medicine
DX: E11.9 Type 2 diabetes mellitus without complications (principal); E66.01 Morbid (severe) obesity due to excess calories; F33.42 Major depressive disorder, recurrent, in full remission; Z68.41 Body mass index [BMI] 40.0-44.9, adult; I10 Essential (primary) hypertension; M48.061 Spinal stenosis, lumbar region without neurogenic claudication; M54.16 Radiculopathy, lumbar region; M54.42 Lumbago with sciatica, left side; G89.29 Other chronic pain; G25.81 Restless legs syndrome
CPT/HCPCS: 99214

== ENCOUNTER 2023-10-12 10:07 | Outpatient (REF) | payer OTHER, SELFPAY ==
[2023-10-12 13:21] LABS: MANUAL DIFF FLAG NO
[2023-10-12 13:40] LABS: Basophils Percent Auto 0.7 % (0-2); Eosinophils Absolute Auto 0.4 X10*3/uL (0.0-0.4); Eosinophils Percent Auto 6.1 % (0-4); Hematocrit 46.8 % (42.0-52.0); Hemoglobin 16.2 g/dl (14.0-18.0); Imm Gran Abs Auto 0.03 X10*3/uL (0.00-0.03); Imm Gran Pct Auto 0.5 % (0.0-0.4); Lymphocytes Absolute Auto 1.7 X10*3/uL (1.2-4.9); Lymphocytes Percent Auto 29.8 % (20-40); Mean Corpuscular HGB Conc 34.6 g/dl (31.0-36.0); Mean Corpuscular Hemoglobin 29.1 pg (27.0-33.0); Mean Corpuscular Volume 84.2 fL (80.0-98.0); Mean Platelet Volume 10.7 fL (9.4-12.4); Monocytes Absolute Auto 0.4 X10*3/uL (0.1-1.2); Neutrophils Absolute Auto 3.2 x10*3/uL (2.0-8.3); Neutrophils Percent Auto 55.9 % (45-73); Platelet Count 276 X10*3/uL (160-400); Red Blood Count 5.56 X10*6/uL (4.60-5.80); Red Cell Distribution Width 13.1 % (11.0-16.0); White Blood Count 5.7 X10*3/uL (4.8-10.8)
[2023-10-12 14:04] LABS: Estimated Average Glucose 117 mg/dL; Hemoglobin A1C 150.6258 umol/L; Hemoglobin A1c % 5.7 % (<6.0)
[2023-10-12 14:22] LABS: Alanine Aminotransferase 30 U/L (0-40); Albumin Level 4.2 g/dL (3.5-5.0); Alkaline Phosphatase 46 U/L (39-117); Anion Gap 13 (12-20); Aspartate Amino Transferase 21 U/L (5-37); Bilirubin Total 0.5 mg/dL (0.0-1.0); Blood Urea Nitrogen 11 mg/dL (9-16); Calcium 9.7 mg/dL (8.4-10.2); Carbon Dioxide 28 mmol/L (22-29); Chloride 105 mmol/L (96-108); Estimated Glomerular Filt Rate > 60; Glucose Random 107 mg/dL (60-115); Potassium 4.7 mmol/L (3.3-5.1); Sodium 141 mmol/L (135-145); Total Protein 6.9 g/dL (6.5-8.0)
[2023-10-12 14:26] LABS: Creatinine Urine 177.42 mg/dL; Microalbum/Creatinine Ratio Ur 7.3 ug/mg cr (<30)
[2023-10-13 12:34] LABS: LDL Cholesterol Direct 111 mg/dL (<100)
== END 2023-10-12 10:08 | disposition home or self-care (01) ==
LOC: HO.HMGCLDS 10:07
PROVIDERS: PCP Internal Medicine; Visit Provider Internal Medicine
DX: I10 Essential (primary) hypertension (principal); E11.9 Type 2 diabetes mellitus without complications; E66.01 Morbid (severe) obesity due to excess calories
CPT/HCPCS: 36415; 80053; 82043; 82570; 83036; 83721; 85025

== ENCOUNTER 2023-10-16 15:21 | Outpatient (AMB) | payer OTHER, SELFPAY ==
[2023-10-16 15:29] VITALS: BP 152/98; PULSE 79; O2SAT 96; BMI 41.4
--- NOTE | 2023-10-16 15:29 | A.OFFPC_ITS ---
Vital Signs 10/16/23 15:29 Height 5 ft 10 in Weight 288 lb 4 oz BMI 41.4 BP 152/98 H Blood Pressure Location Rt brachial Position Sitting Pulse 79 Pulse Source Pulse Oximeter Pulse Oximetry (%) 96 Oxygen Delivery Method Room Air Intake Visit Reasons: Diabetes chk-up Allergies house dust Allergy (Mild, Verified 10/16/23 15:30) cough, watery eyes, sneeze hazelnut [HAZELNUT] Allergy (Unknown, Verified 10/16/23 15:30) UNKNOWN hazelnut Allergy (Unknown, Uncoded 12/31/22 14:53) unknow Medication List - Last Reconciled 10/16/23 by Shannan Mcbride MD albuterol sulfate 90 mcg/actuation (Ventolin HFA) 1 inh inhalation QID PRN 30 days albuterol sulfate 90 mcg/actuation (Proventil HFA) 1 puff inhalation QID PRN atenolol 25 mg PO DAILY [Bp monitor As directed] ibuprofen 600 mg PO Q8H PRN 90 days [Knee brace left As directed] Tobacco use date assessed: 10/16/23 Dental Screening Dental Screen Date: 10/16/23 Did you have a dental visit in the last 12 months?: Yes Did you have a dental problem in the last 6 months where you did not have access to dental care?: No Was dental information given to patient?: Patient has dentist HPI Diabetes chk-up HPI Details Patient is a 43-year-old gentleman came in for his regular follow-up appointment Blood pressure continued to be elevated, he is supposed to be on atenolol 25 mg daily, he is monitoring his blood pressure at home And tells me that it is running above 140 most of the time. I am increasing the dose to 50 mg, patient was instructed to give me a call in 1 week with the readings. Patient is also diet-controlled diabetic, hemoglobin A1c is well-controlled, patient had labs done recently BMI is 41.4 Need to lose weight. Patient suffers from chronic lower back pain he is currently seeing a pain [facility] is taking medication from them And also for restless leg PFSH Medical History HTN (hypertension) Back pain Family History Other Mental health disorder Substance use disorder Social History Housing: Apartment Alcohol intake: current Alcohol intake frequency: a few times a week Patient Tobacco Use Status: Never used Tobacco e-Cigarette/Vaping Use: Never Used Current occupational status: employed Cognitive needs: No Hearing needs: No Vision needs: No Questionnaire Thrive Questionnaire Date Thrive assessed: 03/13/23 AUDIT C Alcohol Use Questionnaire (AUDIT-C) 1. How often do you have a drink containing alcohol?: Never 3. How often do you have six or more drinks on one occasion?: Never Total Score: 0 Score Reviewed/Action Taken: Yes ANIYA-7 AMB Questionnaire ANIYA-7 Date ANIYA - 7 assessed: 04/08/23 Source: Developed by Drs. Zack Caballero, Nadine King, Rob Brewer and colleagues, with an educational della from [employer]. Review of Systems Const Denies chills and Denies fever(s) ENT Denies epistaxis and Denies nasal discharge Card Denies chest pain Resp Denies chest congestion, Denies cough and Denies hemoptysis GI Denies diarrhea and Denies nausea Skin/Breast Denies rash Neuro Reports no additional complaints Psych Reports no additional complaints Endo Reports no additional complaints Physical exam (Primary Care) Vital Signs: Last Vital Signs Pulse 79 10/16/23 15:29 BP 152/98 H 10/16/23 15:29 Pulse Ox 96 10/16/23 15:29 Oxygen Delivery Method Room Air 10/16/23 15:29 BMI result Body Mass Index 41.4 Tobacco/Smoking Status: Tobacco use Status Tobacco use date assessed 10/16/23 10/16/23 15:33 Patient Tobacco Use Status Never used Tobacco 10/16/23 15:33 e-Cigarette/Vaping Use Never Used 10/16/23 15:33 Thrive Assessment: Date of Thrive Assessment Date Thrive assessed 03/13/23 10/16/23 15:33 Const General: cooperative, comfortable and no acute distress Orientation/consciousness: patient oriented x3 HENMT Head: Yes normocephalic Eyes General: appearance normal, both eyes and all related structures Neck Neck: Yes supple Resp Effort & Inspection: normal respiratory effort, no cough and no stridor Cardio Rhythm: regular rhythm Heart sounds: S1 normal heart sound present and S2 normal heart sound present Skin General skin exam: turgor normal Neuro General: patient oriented x3, tone normal and moves all extremities Extrem Right lower extremity: no edema Left lower extremity: no edema Assessment and Plan Assessment & Plan (1) Hypertension, essential: Code(s): I10 - Essential (primary) hypertension (2) Diet-controlled diabetes mellitus: Code(s): E11.9 - Type 2 diabetes mellitus without complications (3) Morbid obesity due to excess calories: Code(s): E66.01 - Morbid (severe) obesity due to excess calories (4) Spinal stenosis at L4-L5 level: Code(s): M48.061 - Spinal stenosis, lumbar region without neurogenic claudication (5) Left lumbar radiculitis: Code(s): M54.16 - Radiculopathy, lumbar region (6) Chronic back pain: Code(s): M54.9 - Dorsalgia, unspecified; G89.29 - Other chronic pain Qualifiers: Back pain laterality: left Back pain location: low back pain Sciatica laterality: sciatica of left side Sciatica presence: with sciatica Qualified Code(s): M54.42 - Lumbago with sciatica, left side; G89.29 - Other chronic pain Plan Patient is a 43-year-old gentleman came in for his regular follow-up appointment Blood pressure continued to be elevated, he is supposed to be on atenolol 25 mg daily, he is monitoring his blood pressure at home And tells me that it is running above 140 most of the time. I am increasing the dose to 50 mg, patient was instructed to give me a call in 1 week with the readings. Patient is also diet-controlled diabetic, hemoglobin A1c is well-controlled, patient had labs done recently BMI is 41.4 Need to lose weight. Patient suffers from chronic lower back pain he is currently seeing a pain management is taking medication from them And also for restless leg Medications: Changed From atenolol 25 mg PO DAILY 90 tabs 1RF To atenolol 50 mg PO DAILY 90 tabs 1RF Coding Level of Care Code Est Pt Level 3 (17129) Diagnoses Hypertension, essential I10 Diet-controlled diabetes mellitus E11.9 Morbid obesity due to excess calories E66.01 Spinal stenosis at L4-L5 level M48.061 Left lumbar radiculitis M54.16 Chronic back pain M54.42; G89.29 Back pain laterality: left Back pain location: low back pain Sciatica laterality: sciatica of left side Sciatica presence: with sciatica
== END 2023-10-16 16:34 | disposition home or self-care (01) ==
PROVIDERS: PCP Internal Medicine; Visit Provider Internal Medicine
DX: I10 Essential (primary) hypertension (principal); E11.9 Type 2 diabetes mellitus without complications; E66.01 Morbid (severe) obesity due to excess calories; Z68.41 Body mass index [BMI] 40.0-44.9, adult; M48.061 Spinal stenosis, lumbar region without neurogenic claudication; M54.16 Radiculopathy, lumbar region; M54.42 Lumbago with sciatica, left side; G89.29 Other chronic pain
CPT/HCPCS: 99213

== ENCOUNTER 2023-11-04 15:26 | Outpatient (AMB) | payer OTHER, SELFPAY ==
--- NOTE | 2023-11-04 15:33 | A.OFFPC_ITS ---
Vital Signs 3 11/04/23 15:34 Height 5 ft 10 in Weight 289 lb 8 oz BMI 41.5 BP 138/102 H Blood Pressure Location Lt brachial Position Sitting Pulse 77 Pulse Source Pulse Oximeter Pulse Oximetry (%) 96 Oxygen Delivery Method Room Air Intake Visit Reasons: Finger cyst Allergies house dust Allergy (Mild, Verified 10/16/23 15:30) cough, watery eyes, sneeze hazelnut [HAZELNUT] Allergy (Unknown, Verified 10/16/23 15:30) UNKNOWN hazelnut Allergy (Unknown, Uncoded 12/31/22 14:53) unknow Medication List - Last Reconciled 11/04/23 by Shannan Mcbride MD albuterol sulfate 90 mcg/actuation (Ventolin HFA) 1 inh inhalation QID PRN 30 days albuterol sulfate 90 mcg/actuation (Proventil HFA) 1 puff inhalation QID PRN atenolol 50 mg PO DAILY [Bp monitor As directed] ibuprofen 600 mg PO Q8H PRN 90 days [Knee brace left As directed] Tobacco use date assessed: 11/04/23 Dental Screening Dental Screen Date: 11/04/23 Did you have a dental visit in the last 12 months?: Yes Did you have a dental problem in the last 6 months where you did not have access to dental care?: No Was dental information given to patient?: Patient has dentist HPI Finger cyst 2 HPI0 Details Patient is a 43 old gentleman came in today to have his blood pressure checked He is not taking atenolol 50 mg daily and tolerating medication Blood pressure continued to be elevated, he is monitoring it at home as well I am adding hydrochlorothiazide 25 mg as well. Patient will continue to monitor at home and will send me a message in a week with blood pressure readings. He has developed a painful cyst right middle finger dorsal aspect distal, patient want that removed, I have placed a referral to [facility] He is complaining of feeling weak in his legs and at times feels tingling and numbness in both his arms, He says that it has been happening for a while, even before he started the blood pressure medication He has never been evaluated for that, have placed a referral to Neurology further evaluation. [facility] Medical History HTN (hypertension) Back pain Family History Other Mental health disorder Substance use disorder Social History Housing: Apartment Alcohol intake: current Alcohol intake frequency: a few times a week Patient Tobacco Use Status: Never used Tobacco e-Cigarette/Vaping Use: Never Used Current occupational status: employed Cognitive needs: No Hearing needs: No Vision needs: No Questionnaire Thrive Questionnaire Date Thrive assessed: 03/13/23 AUDIT C Alcohol Use Questionnaire (AUDIT-C) 1. How often do you have a drink containing alcohol?: Never 3. How often do you have six or more drinks on one occasion?: Never Total Score: 0 Score Reviewed/Action Taken: Yes ANIYA-7 AMB Questionnaire ANIYA-7 Date ANIYA - 7 assessed: 04/08/23 Source: Developed by Drs. Zack Caballero, Nadine King, Rob Brewer and colleagues, with an educational della from [employer]. Review of Systems Const Denies chills and Denies fever(s) ENT Denies epistaxis and Denies nasal discharge Card Denies chest pain Resp Denies chest congestion, Denies cough and Denies hemoptysis GI Denies diarrhea and Denies nausea Skin/Breast Denies rash Neuro Reports no additional complaints Psych Reports no additional complaints Endo Reports no additional complaints Physical exam (Primary Care) Vital Signs: Last Vital Signs Pulse 77 11/04/23 15:34 BP 138/102 H 11/04/23 15:34 Pulse Ox 96 11/04/23 15:34 Oxygen Delivery Method Room Air 11/04/23 15:34 BMI result Body Mass Index 41.5 Tobacco/Smoking Status: Tobacco use Status Tobacco use date assessed 11/04/23 11/04/23 15:38 Patient Tobacco Use Status Never used Tobacco 11/04/23 15:38 e-Cigarette/Vaping Use Never Used 11/04/23 15:38 Thrive Assessment: Date of Thrive Assessment Date Thrive assessed 03/13/23 11/04/23 15:38 Const General: cooperative, comfortable and no acute distress Orientation/consciousness: patient oriented x3 HENMT Head: Yes normocephalic Neck Neck: Yes supple Resp Effort & Inspection: normal respiratory effort, no cough and no stridor Cardio Rhythm: regular rhythm Heart sounds: S1 normal heart sound present and S2 normal heart sound present Skin General skin exam: turgor normal Neuro General: patient oriented x3, tone normal and moves all extremities Extrem Hand/finger images: 2 1. Painful fingers cyst Right lower extremity: no edema Left lower extremity: no edema Assessment and Plan Assessment & Plan (1) Epidermoid cyst of finger: Code(s): L72.0 - Epidermal cyst (2) Paresthesia of right arm: Code(s): R20.2 - Paresthesia of skin (3) Paresthesia of left arm: Code(s): R20.2 - Paresthesia of skin (4) Weakness of both legs: Code(s): R29.898 - Other symptoms and signs involving the musculoskeletal system (5) Uncontrolled hypertension: Code(s): I10 - Essential (primary) hypertension Plan Patient is a 43 old gentleman came in today to have his blood pressure checked He is not taking atenolol 50 mg daily and tolerating medication Blood pressure continued to be elevated, he is monitoring it at home as well I am adding hydrochlorothiazide 25 mg as well. Patient will continue to monitor at home and will send me a message in a week with blood pressure readings. He has developed a painful cyst right middle finger dorsal aspect distal, patient want that removed, I have placed a referral to [facility] He is complaining of feeling weak in his legs and at times feels tingling and numbness in both his arms, He says that it has been happening for a while, even before he started the blood pressure medication He has never been evaluated for that, have placed a referral to Neurology further evaluation. Orders: Referrals 2 Neurology Referral R20.2 - Paresthesia of skin, R29.898 - Other symptoms and signs involving the musculoskeletal system Orthopedics Referral L72.0 - Epidermal cyst Medications: New 2 hydrochlorothiazide 25 mg PO QAM 90 tabs 0RF Coding Level of Care Code Est Pt Level 4 (01026) Diagnoses Epidermoid cyst of finger L72.0 Paresthesia of right arm R20.2 Paresthesia of left arm R20.2 Weakness of both legs R29.898 Uncontrolled hypertension I10
[2023-11-04 15:34] VITALS: BP 138/102; PULSE 77; O2SAT 96; BMI 41.5
== END 2023-11-04 16:16 | disposition home or self-care (01) ==
PROVIDERS: PCP Internal Medicine; Visit Provider Internal Medicine
DX: L72.0 Epidermal cyst (principal); R20.2 Paresthesia of skin; R29.898 Other symptoms and signs involving the musculoskeletal system; I10 Essential (primary) hypertension
CPT/HCPCS: 99214

== ENCOUNTER 2023-12-02 14:04 | Outpatient (AMB) | payer OTHER, SELFPAY ==
[2023-12-02 14:27] VITALS: BMI 41.5
--- NOTE | 2023-12-02 14:27 | A.OFFVIS_ITS ---
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 Patient reports a lump located near his DIP that has been present for a few months. States tender to the touch. 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 HX of surgical cyst removal in same hand. 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 Patient reports that this cyst has been there for ?a few months?. He states that, occasionally, the cyst increases in size and becomes tender to the touch, but that this spontaneously resolves and the cyst shrinks. He reports that the cyst is very small at this time. 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 Today, the patient reports that while the cyst is not painful, he feels a slight pressure under the skin at the site of the cyst. The patient reports that he has a history of multiple cyst removals in his right hand, however these were both on the volar aspect of the hand. 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, 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 Cognitive needs: No Hearing needs: No Vision needs: No Review of Systems Const All systems reviewed & are unremarkable except as noted in HPI and below Physical Exam Vital Signs: BMI result Body Mass Index 41.5 Const Other: Patient is alert, oriented, cooperative, and in no acute distress HEENT Head: Yes normocephalic and Yes atraumatic Resp Effort & Inspection: normal respiratory effort and able to speak in complete sentences Cardio Jugular venous distension: no JVD Neuro General: gait normal Cognition (Neuro): normal cognition Extrem Other: Patient is alert, oriented, and in no acute distress. Neuro: Median, ulnar, radial nerves motor and sensory intact and sensation is normal to the tips of all digits. Vascular: Cap refill brisk Pain: Patient reports no pain or tenderness to palpation at this time. ROM: Patient is able to flex and extend all digits bilaterally Able to make a tight fist, good finger cross Skin: Small, cystic mass approximately 2-3 mm in diameter present on the dorsal aspect of the right middle finger, just distal to the PIP joint. Best visualized when the DIP joint is in flexion. No lacerations or abrasions. General: No ecchymosis, erythema, or evidence of infection. Psych: Appears grossly normal Affect normal Attitude cooperative Patient seen with Dr. Rock Psych Appearance: grossly normal Mental Status: mental status grossly normal Assessment & Plan Assessment & Plan (1) Mucous cyst of digit of right hand: Code(s): M67.441 - Ganglion, right hand Category: Medical Plan 1. Mucous cyst, right middle finger Has been present for ? a few months? Patient reports that the cyst occasionally grows in size, and becomes tender, but this spontaneously resolves, and the cyst is small and nontender at this time. No erythema noted I educated the patient about the condition. I discussed both operative and no noperative treatment options. The patient would like to proceed with surgery. The risks and benefits of operative treatment were discussed with the patient and the patient wishes to proceed with surgery. These risks include, but are not limited to, risk of damage to blood vessels, nerves, tendons, infection, recurrence, incomplete relief of preoperative symptoms, persistent pain, possible need for further surgery, and the risks associated with regional blocks and/or anesthesia. Plan is to take the patient to the operating room at some point in the next few weeks for the following procedures: 1. Mucous cyst excision, right middle finger All of the preoperative paperwork including the consent was discussed today. All of the patient's questions were answered in the clinic today. The patient understands that they will be in contact with our elevators inspector to discuss scheduling their procedure. Patient prefers having cyst excised surgically. Patient denies diabetes, blood thinners, asthma, heart issues, lung issues, kidney issues, or current smoking. Patient evaluated today with Dr. Rock. Coding Level of Care Code New Pt Level 4 (97361) Diagnoses Mucous cyst of digit of right hand M67.441
== END 2023-12-02 15:26 | disposition home or self-care (01) ==
PROVIDERS: PCP Internal Medicine
DX: M67.441 Ganglion, right hand (principal)
CPT/HCPCS: 99204

== ENCOUNTER → 2023-12-02 14:04 | Outpatient (BNVA) | payer OTHER, SELFPAY | PROVIDERS: PCP Internal Medicine ==

== ENCOUNTER → 2024-02-11 11:26 | Day surgery (SDC) | payer OTHER, SELFPAY ==
[2024-02-11 11:49] VITALS: BP 113/78; PULSE 78; RESP 20; TEMP 36.9; O2SAT 98; BMI 41.5
--- NOTE | 2024-02-11 12:50 | PC.NURSE ---
pt cancelled no cyst noted
== END ==
LOC: HO.SSS 11:27
PROVIDERS: PCP Internal Medicine; Visit Provider Orthopaedic Surgery
DX: M67.441 Ganglion, right hand (principal); Z53.8 Procedure and treatment not carried out for other reasons
CPT/HCPCS: J0171

== ENCOUNTER 2024-04-06 15:28 | Outpatient (AMB) | payer OTHER, SELFPAY ==
--- NOTE | 2024-04-06 15:31 | MHC.PC.OV ---
Vital Signs 04/06/24 15:32 Height 5 ft 10 in Weight 295 lb BMI 42.3 BP 104/70 Blood Pressure Location Rt brachial Position Sitting Pulse 79 Pulse Source Pulse Oximeter Pulse Oximetry (%) 97 Oxygen Delivery Method Room Air Intake Visit Reasons: Annual PE Allergies house dust Allergy (Mild, Verified 04/06/24 15:33) cough, watery eyes, sneeze hazelnut [HAZELNUT] Allergy (Unknown, Verified 04/06/24 15:33) UNKNOWN hazelnut Allergy (Unknown, Uncoded 04/06/24 15:33) unknow Medication List - Last Reconciled 04/06/24 by Shannan Mcbride MD albuterol sulfate 90 mcg/actuation (Ventolin HFA) 1 inh inhalation QID PRN 30 days atenolol 50 mg PO DAILY [Bp monitor As directed] hydrochlorothiazide 25 mg PO QAM [Knee brace left As directed] Tobacco use date assessed: 04/06/24 Dental Screening Dental Screen Date: 04/06/24 Did you have a dental visit in the last 12 months?: Yes Did you have a dental problem in the last 6 months where you did not have access to dental care?: Yes Was dental information given to patient?: Patient has dentist HPI Annual PE HPI Details Patient is a 43-year-old gentleman came today for physical examination Patient is diet-controlled diabetic History of hypertension, taking medication blood pressure is controlled Tolerating medication no side effects Lab order placed to check for liver and kidney function And hemoglobin A1c BMI is in 40s patient is morbidly obese, trying to lose weight But he has gained weight over past few weeks, patient says that he has been feeling under lot of stress And has been emotionally eating, I am starting him on Wellbutrin 150 mg in the morning We will set up a telephone visit in 3 weeks to see how he is doing with this medication and also to go over his labs Suffers chronic back pain, managed by pain management [facility] Follow-up 6 months physical exam 1 year [facility] Medical History HTN (hypertension) Back pain Surgical History Hx of shoulder surgery Hx of spinal surgery Family History Other Mental health disorder Substance use disorder Social History Housing: Apartment Alcohol intake: current Alcohol intake frequency: a few times a week Patient Tobacco Use Status: Never used Tobacco e-Cigarette/Vaping Use: Never Used Current occupational status: employed Current occupation: [employer], 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 Cognitive needs: No Hearing needs: No Vision needs: No Questionnaire PHQ-9 Over the last 2 weeks, how often have you been bothered by any of the following problems? 1. Little interest or pleasure in doing things: several days 2. Feeling down, depressed, or hopeless: several days 3. Trouble falling or staying asleep, or sleeping too much: several days 4. Feeling tired or having little energy: more than half the days 5. Poor appetite or overeating: nearly every day 6. Feeling bad about yourself - or that you are a failure or have let yourself or your family down: not at all 7. Trouble concentrating on things, such as reading the newspaper or watching television: not at all 8. Moving or speaking so slowly that other people could have noticed. Or the opposite - being so fidgety or restless that you have been moving around a lot more than usual: not at all 9. Thoughts that you would be better off or of hurting yourself in some way: not at all Total score: 5 Depression Screening Interpretation: Negative Depression Screening Done: Yes 25425 - PHQ-9 Billing: Yes Source: Developed by Drs. Zack Caballero, Nadine King, Rob Brewer and colleagues, with an educational della from [employer]. Thrive Questionnaire Date Thrive assessed: 03/13/23 I am a: Patient What is your living situation today?: I have a steady place to live Within the past 12 months, did the food you bought not last and you didn't have the money to get more?: Sometimes True Within the past 12 months, did you worry whether your food would run out before you got money to buy more?: Sometimes True Do you have trouble paying for medicines?: No Do you have trouble getting transportation to medical appointments?: No Do you have trouble paying your heating and electricity bill?: Yes Do you have trouble taking care of your child, family member or friend?: No Do you have trouble with day-to-day activities such as bathing, preparing meals, shopping, managing finances, etc.?: No Are you currently unemployed and looking for a job?: No Are you interested in more education?: No Please select the resources that you would like help with: None Currently or been in a relationship where the following occur: I choose not to answer THRIVE Score: 3 AUDIT C Alcohol Use Questionnaire (AUDIT-C) 1. How often do you have a drink containing alcohol?: Never Total Score: 0 ANIYA-7 AMB Questionnaire ANIYA-7 Date ANIYA - 7 assessed: 04/08/23 Feeling nervous, anxious, or on edge: 0 = Not at all Not being able to stop or control worryin = Not at all Worrying too much about different things: 2 = More than half the days Trouble relaxin = Not at all Being so restless that it is hard to sit still: 0 = Not at all Becoming easily annoyed or irritable: 0 = Not at all Feeling afraid as if something awful might happen: 0 = Not at all Total ANIYA-7 score (0-4 normal; 5-9 mild; 10-14 moderate; 15-21 severe): 2 Source: Developed by Drs. Zack Caballero, Nadine King, Rob Brewer and colleagues, with an educational della from [employer]. Review of Systems Const Denies chills, Denies fever(s) and Denies headache(s) Eyes Denies blurry vision ENT Denies headache(s), Denies nasal discharge, Denies nasal obstruction, Denies odynophagia and Denies sinus pain Card Denies chest pain at rest and Denies chest pain with activity Resp Denies cough and Denies hemoptysis GI Denies diarrhea, Denies odynophagia, Denies vomiting and Denies hematemesis Reports as per HPI Musc Denies abnormal gait Skin/Breast Reports as per HPI Neuro Denies Neuro-related abnormal movements, Denies Abnormal speech present, Denies abnormal gait, Denies headache(s) and Denies Sensory deficit (Neuro) Psych Denies mood swings and Denies paranoia Endo Reports as per HPI Edilberto/Lymph Reports as per HPI Aller/Immun Reports as per HPI Physical exam (Primary Care) BMI result Body Mass Index 42.3 Tobacco/Smoking Status: Tobacco use Status Tobacco use date assessed 11/04/23 11/04/23 15:38 Patient Tobacco Use Status Never used Tobacco 12/02/23 14:48 e-Cigarette/Vaping Use Never Used 12/02/23 14:48 Depression Screening Interpretation: Negative Thrive Assessment: Date of Thrive Assessment Date Thrive assessed 03/13/23 11/04/23 15:38 Currently or been in a relationship where the following occur: I choose not to answer Const General: cooperative, comfortable and no acute distress Orientation/consciousness: patient oriented x3 HENMT Head: Yes normocephalic and Yes atraumatic Eyes General: appearance normal, both eyes and all related structures Pupils: Equal, round and reactive pupils present EOM: EOMs intact bilaterally Neck Neck: Yes supple and No lymphadenopathy Thyroid: Thyroid normal Lymphatic: no lymphadenopathy noted Resp Effort & Inspection: normal respiratory effort and able to speak in complete sentences Auscultation: clear to auscultation bilaterally Cardio Heart sounds: S1 normal heart sound present and S2 normal heart sound present GI Palpation (GI): Soft to palpation and nontender Auscultation: normal bowel sounds General: Yes no CVA tenderness Back/Spine/Pelvis Back: no CVA tenderness Skin General skin exam: elasticity normal and turgor normal Neuro General: patient oriented x3 and gait normal Cranial nerves: Yes Equal, round and reactive pupils present Speech: No Abnormal speech present Sensory Exam: No Sensory deficit (Neuro) Coordination: tandem gait normal and Romberg test negative Extrem General: Yes normal exam except as noted and No edema Coding Level of Care Code Est Pt Level 3 (51955) Est Pt Prev Care 40-64y(42828) Diagnoses Encounter for general adult medical examination with abnormal findings Z00. Stress F43.9 Hypertension, essential I10 Diet-controlled diabetes mellitus E11.9 Morbid obesity due to excess calories E66.01 Assessment & Plan Assessment & Plan (1) Encounter for general adult medical examination with abnormal findings: Code(s): Z00.01 - Encounter for general adult medical examination with abnormal findings Category: Medical (2) Stress: Code(s): F43.9 - Reaction to severe stress, unspecified Category: Medical (3) Hypertension, essential: Code(s): I10 - Essential (primary) hypertension Category: Medical (4) Diet-controlled diabetes mellitus: Code(s): E11.9 - Type 2 diabetes mellitus without complications Category: Medical (5) Morbid obesity due to excess calories: Code(s): E66.01 - Morbid (severe) obesity due to excess calories Category: Medical Plan Patient is a 43-year-old gentleman came today for physical examination Patient is diet-controlled diabetic History of hypertension, taking medication blood pressure is controlled Tolerating medication no side effects Lab order placed to check for liver and kidney function And hemoglobin A1c BMI is in 40s patient is morbidly obese, trying to lose weight Suffers chronic back pain, managed by pain management [facility] Follow-up 6 months physical exam 1 year Orders: Orders Hemoglobin A1c Today E11.9 - Type 2 diabetes mellitus without complications Comprehensive Met. Panel Today E11.9 - Type 2 diabetes mellitus without complications, E66.01 - Morbid (severe) obesity due to excess calories, I10 - Essential (primary) hypertension, Z00.01 - Encounter for general adult medical examination with abnormal findings Medications: New bupropion HCl SR (Wellbutrin SR) 150 mg PO DAILY 30 tabs 0RF Mood stabilizer
[2024-04-06 15:32] VITALS: BP 104/70; PULSE 79; O2SAT 97; BMI 42.3
== END 2024-04-06 15:47 | disposition home or self-care (01) ==
LOC: HO.HMCC 15:29
PROVIDERS: PCP Internal Medicine; Visit Provider Internal Medicine
DX: Z00.00 Encounter for general adult medical examination without abnormal findings (principal); E11.9 Type 2 diabetes mellitus without complications; E66.01 Morbid (severe) obesity due to excess calories; Z68.41 Body mass index [BMI] 40.0-44.9, adult; F43.9 Reaction to severe stress, unspecified; I10 Essential (primary) hypertension

== ENCOUNTER → 2024-04-06 15:28 | Outpatient (BNVA) | payer OTHER, SELFPAY | PROVIDERS: PCP Internal Medicine; Visit Provider Internal Medicine ==

== ENCOUNTER 2024-04-09 13:56 | Outpatient (REF) | payer OTHER, SELFPAY ==
[2024-04-09 15:26] LABS: Alanine Aminotransferase 38 U/L (0-40); Albumin Level 4.1 g/dL (3.5-5.0); Alkaline Phosphatase 71 U/L (39-117); Anion Gap 16 (12-20); Aspartate Amino Transferase 29 U/L (5-37); Bilirubin Total 0.5 mg/dL (0.0-1.0); Blood Urea Nitrogen 17 mg/dL (9-16); Calcium 9.6 mg/dL (8.4-10.2); Carbon Dioxide 27 mmol/L (22-29); Chloride 101 mmol/L (96-108); Estimated Glomerular Filt Rate > 60; Glucose Random 165 mg/dL (60-115); Potassium 3.6 mmol/L (3.3-5.1); Sodium 140 mmol/L (135-145); Total Protein 6.7 g/dL (6.5-8.0)
[2024-04-09 15:49] LABS: Estimated Average Glucose 148 mg/dL; Hemoglobin A1C 206.7498 umol/L; Hemoglobin A1c % 6.8 % (<6.0)
== END 2024-04-09 13:57 | disposition home or self-care (01) ==
LOC: HO.HMGCLDS 13:56
PROVIDERS: PCP Internal Medicine; Visit Provider Internal Medicine
DX: Z00.01 Encounter for general adult medical examination with abnormal findings (principal); E66.01 Morbid (severe) obesity due to excess calories; I10 Essential (primary) hypertension; E11.9 Type 2 diabetes mellitus without complications
CPT/HCPCS: 36415; 80053; 83036

== ENCOUNTER 2024-04-28 08:17 | Outpatient (AMB) | payer OTHER, SELFPAY ==
--- NOTE | 2024-04-28 08:27 | A.OFFPC_ITS ---
Intake Visit Reasons: 3 week f/up Allergies house dust Allergy (Mild, Verified 04/28/24 08:27) cough, watery eyes, sneeze hazelnut [HAZELNUT] Allergy (Unknown, Verified 04/28/24 08:27) UNKNOWN hazelnut Allergy (Unknown, Uncoded 04/06/24 15:33) unknow Medication List - Last Reconciled 04/28/24 by Shannan Mcbride MD albuterol sulfate 90 mcg/actuation (Ventolin HFA) 1 inh inhalation QID PRN 30 days atenolol 50 mg PO DAILY [Bp monitor As directed] bupropion HCl SR (Wellbutrin SR) 150 mg PO DAILY hydrochlorothiazide 25 mg PO QAM [Knee brace left As directed] Tobacco use date assessed: 04/28/24 Dental Screening Dental Screen Date: 04/28/24 Did you have a dental visit in the last 12 months?: Yes Did you have a dental problem in the last 6 months where you did not have access to dental care?: No Was dental information given to patient?: Patient has dentist HPI 3 week f/up HPI Details Patient is 43 year old male I started him on Wellbutrin for depression/stress/ emotional eating he is on 150 mg dose, and is taking in am patient did well, he tells me his mind is calmer no side effects i am increasing the dose to 300 mg his labs shows Hba1c of 6.8 we talked about controlling diet if it crossed 7 then he need to be stated on medication f.u in 3-4 months PFSH Medical History HTN (hypertension) Back pain Surgical History Hx of shoulder surgery Hx of spinal surgery Family History Other Mental health disorder Substance use disorder Social History Housing: Apartment Alcohol intake: current Alcohol intake frequency: a few times a week Patient Tobacco Use Status: Never used Tobacco e-Cigarette/Vaping Use: Never Used Current occupational status: employed 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 Zack Caballero, Nadine King, Rob Brewer and colleagues, with an educational della from [employer]. Review of Systems Const Denies chills and Denies fever(s) ENT Denies epistaxis and Denies nasal discharge Card Denies chest pain Resp Denies chest congestion, Denies cough and Denies hemoptysis GI Denies diarrhea and Denies nausea Skin/Breast Denies rash Neuro Reports no additional complaints Psych Reports no additional complaints Endo Reports no additional complaints Physical exam (Primary Care) Tobacco/Smoking Status: Tobacco use Status Tobacco use date assessed 04/28/24 04/28/24 08:28 Patient Tobacco Use Status Never used Tobacco 04/28/24 08:28 e-Cigarette/Vaping Use Never Used 04/28/24 08:28 Thrive Assessment: Date of Thrive Assessment Date Thrive assessed 03/13/23 04/28/24 08:28 Telehealth Telehealth Telehealth Platform: [employer] Location of provider rendering services: practice address Location of patient: address on file Patient Identification confirmed using: Name, : Yes Telehealth method: voice only Patient verbally consented to treatment: Yes Patient verbally consented to billing insurance company: Yes Patient informed of any privacy concerns related to visit: Yes Coding Level of Care Code Tele Est Pt Level 3 (29650) Diagnoses Stress F43.9 Diet-controlled diabetes mellitus E11.9 Assessment & Plan Assessment & Plan (1) Stress: Code(s): F43.9 - Reaction to severe stress, unspecified Category: Medical (2) Diet-controlled diabetes mellitus: Code(s): E11.9 - Type 2 diabetes mellitus without complications Category: Medical Plan Patient is 43 year old male I started him on Wellbutrin for depression/stress/ emotional eating he is on 150 mg dose, and is taking in am patient did well, he tells me his mind is calmer no side effects i am increasing the dose to 300 mg his labs shows Hba1c of 6.8 we talked about controlling diet if it crossed 7 then he need to be stated on medication f.u in 3-4 months Medications: New bupropion HCl XL (Wellbutrin XL) 300 mg PO QAM 90 tabs 1RF stress Discontinued bupropion HCl SR (Wellbutrin SR) Discontinued Reason: Doctor's Order 150 mg PO DAILY 30 tabs 0RF Mood stabilizer
== END 2024-04-28 09:33 | disposition home or self-care (01) ==
LOC: HO.HMCC 08:17
PROVIDERS: PCP Internal Medicine; Visit Provider Internal Medicine
DX: F43.9 Reaction to severe stress, unspecified (principal); E11.9 Type 2 diabetes mellitus without complications

== ENCOUNTER 2024-07-02 14:07 | Emergency (ER) | payer OTHER, SELFPAY ==
[2024-07-02 14:14] VITALS: BP 152/88; PULSE 74; RESP 20; TEMP 36.6; O2SAT 97; BMI 42.8
[2024-07-02] MEDS: Tetracaine HCl/PF 0.5% Oph Sol 4 ML DROPS 1 DROP EYE-BOTH (20:52)
[2024-07-02] MEDS: Fluorescein Sodium STRIP 1 STRIP EYE-BOTH (20:52)
--- NOTE | 2024-07-02 20:52 | PC.NURSE ---
provider to do eye exam with drops
--- NOTE | 2024-07-02 20:53 | PC.NURSE ---
pt stated I am able to see better out of the injured eye than the good eye
--- NOTE | 2024-07-02 22:24 | ED_ITS ---
HPI - General Adult General Chief complaint: Eye Problems Stated complaint: eye inj @ work Time Seen by Provider: 07/02/24 21:49 Source: patient, RN notes reviewed and old records reviewed Mode of arrival: ambulatory Limitations: no limitations History of Present Illness ED Provider: Nicolasa OH narrative: 44-year-old male presents for evaluation of right eye pain. 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 He reports that there is a conveyor belt that runs above him and there is ?constantly glass and med of the particles falling from it. ? He reports that he does wear eye protection and a helmet. However 2 weeks ago his company got new helmet that does not have a brim that protrudes over his eyes He states that when he was at work he felt a piece of something fall into his right eye. He had minor discomfort yesterday but all day today has had severe pain He feels as though something is stabbing his eye. He denies any blurry vision He does not wear contacts or glasses Related Data Previous Rx's ?Medication ?Instructions ?Recorded Knee brace left #1 ea 02/04/22 albuterol sulfate 90 mcg/actuation 1 inh inhalation QID PRN shortness 10/30/22 aerosol inhaler (Ventolin HFA) of breath or wheezing 30 days #6.7 grams Bp monitor #1 ea 07/01/23 atenolol 50 mg tablet 50 mg PO DAILY #90 tabs 04/15/24 hydrochlorothiazide 25 mg tablet 25 mg PO QAM #90 tabs 04/24/24 bupropion HCl 300 mg 24 hr tablet, 300 mg PO QAM stress #90 tabs 04/28/24 extended release (Wellbutrin XL) ibuprofen 600 mg tablet 600 mg PO Q8H PRN pain 90 days 04/28/24 #240 tabs erythromycin 5 mg/gram (0.5 %) eye 0.5 inch ophthalmic (eye) TID 5 07/02/24 ointment days #3.5 grams oxycodone 5 mg tablet 5 mg PO Q6H PRN severe pain (scale 07/02/24 score 7-10) #16 tabs Allergies Allergy/AdvReac Type Severity Reaction Status Date / Time house dust Allergy Mild cough, Verified 07/02/24 14:17 watery eyes, sneeze hazelnut [HAZELNUT] Allergy Unknown UNKNOWN Verified 07/02/24 14:17 hazelnut Allergy Unknown unknow Uncoded 04/06/24 15:33 Review of Systems Constitutional: Constitutional: Denies body ache(s), Denies chills, Denies fever(s) and Denies headache(s) Eyes: Eyes: Denies blind spots, Denies blurry vision, Denies diplopia, Reports irritation, Denies itchy eyes, Denies loss of peripheral vision, Denies loss of vision and Reports eye pain ENT: Denies headache(s) Neurologic: Denies headache(s) and Denies loss of vision Allergic/Immunologic: Allergic/Immunologic: Denies itchy eyes PMFSH Past Medical History Medical History HTN (hypertension) Back pain Surgical History Hx of shoulder surgery Hx of spinal surgery Family History Family History Other Mental health disorder Substance use disorder Social History Social History Housing: Apartment Alcohol intake: current Alcohol intake frequency: a few times a week Patient Tobacco Use Status: Never used Tobacco e-Cigarette/Vaping Use: Never Used Advance Directives: No Advance Directives Information Provided: No Do you have a plan to hurt others: No Plan Current occupational status: employed 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, 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 Cognitive needs: No Hearing needs: No Vision needs: No Physical Exam ED Vital Signs: Vital Signs - 24 hr 07/02/24 14:14 Temperature 97.8 F Pulse Rate 74 Respiratory Rate 20 Blood Pressure 152/88 H Pulse Oximetry 97 Oxygen Delivery Method Room Air BMI result Body Mass Index 42.8 Const General: healthy appearing, comfortable, no acute distress, alert and awake Nutritional Appearance: well nourished Orientation/consciousness: patient oriented x3 HENMT Head: Yes normocephalic and Yes atraumatic Eyes Alignment and Position: alignment normal Periorbital: periorbital findings normal Eyelids: Yes eyelids normal Conjunctivae: normal conjunctivae (Right-sided conjunctival injection, diffuse) Sclerae: scleral abnormal right foreign body Corneas: corneas abnormal on the right foreign body (Overlying the lateral aspect of the iris at the 9 o'clock position. Small black speck) Neck Neck: Yes full ROM Resp Effort & Inspection: normal respiratory effort, able to speak in complete sentences and not labored Skin General skin exam: elasticity normal Neuro General: patient oriented x3 Cranial nerves: Yes Bilaterally intact EOM present Cognition (Neuro): normal cognition Medications Administered Discontinued Medications Generic Name Dose Route Start Last Admin Trade Name Srinathq PRN Reason Stop Dose Admin Fluorescein Sodium 1 strip 07/02/24 15:00 07/02/24 20:52 Fluorescein Sodium Strip EYE-BOTH 07/02/24 15:01 1 strip ONCE ONE Administration Tetracaine HCl 1 drop 07/02/24 15:00 07/02/24 20:52 Tetracaine Hcl/Pf 0.5% Oph Hetal 4 Ml Drops EYE-BOTH 07/02/24 15:01 1 drop ONCE ONE Administration Medical Decision Making Medical Decision Making MDM Narrative: 44-year-old male presents for evaluation of right eye pain. He does have an obvious foreign body that appears to be a small piece of metal with a rust ring around the area. Respiratory he was confirmed with slit-lamp examination. I was able to remove a tiny piece of the foreign body with a Q-tip after numbing his eye with tetracaine. My attending,, Dr Bang assisted to help remove part of the rust ring that was remaining. The patient tolerated the procedure well, there were no complications. The patient's last tetanus shot was confirmed to be in June of 2022, he is up-to-date. I ordered a the patient erythromycin ointment to for barrier and help control the patient's pain. We will discharge the patient with oxycodone as well and ophthalmologic follow-up Differential Diagnosis Differential Diagnoses: The differential diagnosis associated with the presentation includes Right eye foreign body Rust ring Corneal abrasion Conjunctivitis Discharge Plan Discharge Clinical Impression: Foreign body of right eye Patient Disposition: Home, Self-Care Instructions: Eye Foreign Body (ED) Additional Instructions: It appeared that you had a small piece of metal on your cornea/eye. We were able to remove most the foreign body and rust ring surrounding it However there is still some of the rust ring remaining Use erythromycin ointment 3 times daily for the 5 days Use ibuprofen/Tylenol for pain. You may use oxycodone for more severe, breakthrough pain It is very important that you follow up with Ophthalmology as soon as possible. Call on Thursday to schedule an appointment. Return sooner for new or worsening symptoms Prescriptions: New oxycodone 5 mg tablet 5 mg PO Q6H PRN (Reason: severe pain (scale score 7-10)) Qty: 16 0RF Rx Instructions: Partial Fill upon patient request. erythromycin 5 mg/gram (0.5 %) ointment 0.5 inch ophthalmic (eye) TID 5 Days Qty: 3.5 0RF No Action albuterol sulfate [Ventolin HFA] 90 mcg/actuation HFA aerosol inhaler 1 inh inhalation QID PRN (Reason: shortness of breath or wheezing) 30 Days Qty: 6.7 4RF atenolol 50 mg tablet 50 mg PO DAILY Qty: 90 1RF hydrochlorothiazide 25 mg tablet 25 mg PO QAM Qty: 90 0RF (DME) Bp monitor See Rx Instructions .Route .MEDSUPPLY Qty: 1 0RF Rx Instructions: As directed (DME) Knee brace left Large See Rx Instructions .Route .MEDSUPPLY Qty: 1 0RF Rx Instructions: As directed bupropion HCl [Wellbutrin XL] 300 mg tablet extended release 24 hr 300 mg PO QAM Qty: 90 1RF ibuprofen 600 mg tablet 600 mg PO Q8H PRN (Reason: pain) 90 Days Qty: 240 0RF Referrals: Chad Jalloh [Physician] - (Right eye foreign body and rust ring) Stand Alone Forms: Work/School Release Print Language: Slovak
[2024-07-02] MEDS: oxyCODONE HCl Immed Release 5 MG TABLET PO (23:21)
[2024-07-02] MEDS: Erythromycin Base 0.5% Oph Oin 1 GM TUBE 1 CM EYE-RIGHT (23:21)
[2024-07-02 23:22] VITALS: BP 152/88; PULSE 74; RESP 20; TEMP 36.6; O2SAT 97
== END 2024-07-02 23:23 | disposition home or self-care (01) ==
PROVIDERS: Emergency Provider Emergency Medicine Emergency Medical Services; PCP Internal Medicine
DX: T15.01XA Foreign body in cornea, right eye, initial encounter (principal); W44.E9XA Other non-magnetic metal objects entering into or through a natural orifice, initial encounter; H57.11 Ocular pain, right eye; Y93.89 Activity, other specified; Y92.59 Other trade areas as the place of occurrence of the external cause; Y99.0 Civilian activity done for income or pay
CPT/HCPCS: 65222; 99283

== ENCOUNTER 2024-08-17 12:17 | Outpatient (AMB) | payer OTHER, SELFPAY ==
[2024-08-17 12:19] VITALS: BP 134/82; PULSE 70; O2SAT 96; BMI 42.5
--- NOTE | 2024-08-17 12:19 | MHC.PC.OV ---
Vital Signs 08/17/24 12:19 Height 5 ft 10 in Weight 296 lb 8 oz BMI 42.5 BP 134/82 Blood Pressure Location Lt brachial Position Sitting Pulse 70 Pulse Source Pulse Oximeter Pulse Oximetry (%) 96 Oxygen Delivery Method Room Air Intake Visit Reasons: f/u diabetes/Insurance Ok Allergies house dust Allergy (Mild, Verified 08/17/24 12:19) cough, watery eyes, sneeze hazelnut [HAZELNUT] Allergy (Unknown, Verified 08/17/24 12:19) UNKNOWN hazelnut Allergy (Unknown, Uncoded 04/06/24 15:33) unknow Medication List - Last Reconciled 08/17/24 by Shannan Mcbride MD albuterol sulfate 90 mcg/actuation (Ventolin HFA) 1 inh inhalation QID PRN 30 days atenolol 50 mg PO DAILY [Bp monitor As directed] bupropion HCl XL (Wellbutrin XL) 300 mg PO QAM erythromycin 0.5 inches ophthalmic (eye) TID 5 days hydrochlorothiazide 25 mg PO QAM ibuprofen 600 mg PO Q8H PRN 90 days [Knee brace left As directed] oxycodone 5 mg PO Q6H PRN Tobacco use date assessed: 08/17/24 Dental Screening Dental Screen Date: 04/28/24 HPI f/u diabetes/Insurance Ok HPI Details History - The patient is a 44 year old male presenting with management of poorly controlled diabetes and hypertension. - Reports a significant increase in A1c from 6.8 to 8.3. Attributed to dietary changes and lack of medication. He has not been managing this with medication recently. - Essential Hypertension is being managed with medication; however, refill issues have been noted. - Depression management was halted by the patient due to experiencing severe side effects Wellbutrin 300 , feeling of high, medication did help him stabilize his mood - The patient describes persistent and chronic back pain and neck pain. Pain managed with Percocet through [facility] pain management, but has had trouble obtaining the medication due to insurance issues. 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 Left shoulder demonstrates symptoms suggestive of tendon or joint issues, similar to previous problems experienced with the right shoulder, which was surgically treated. - morbid obesity having difficulty losing weight Problem List - Essential Hypertension - Diabetes Mellitus, Poorly Controlled - Depression - Chronic Back Pain - Neck Pain - Shoulder Pain - Knee Pain - History of Spine Surgery Diagnostic results - Labs: HbA1c increased to 8.3 from a previous 6.8, indicating poor diabetes control. Patient Instructions - Start new diabetes medication as prescribed, take 1 tablet in the morning.Glipizide 5 mg - Check blood sugar levels using provided machine, track results once or twice a week and bring log to next appointment. - Adjust depression medication to 100 mg wellbutrin primarily in the morning. - Contact the office with blood sugar readings or any new symptoms. - Carry candy for signs of low blood sugar. Signs and symptoms of hypoglycemia discussed - Use online portal for communication regarding any medication issues or condition updates. Review of Systems General: No fever no chills neurological: No headaches no dizziness ear nose throat: No sore throat no hearing difficulty no ear pain cardiovascular: No syncope, no chest pain, no palpitations gastrointestinal: No nausea vomiting or diarrhea endocrine: No polyuria polydipsia no heat intolerance genitourinary: No dysuria skin: No new complaints Physical Exam general: No acute distress HEENT: No acute findings neck: Supple, tingling sensation down the neck respiratory system: Able to talk in full sentences, no audible wheeze no stridor cardiovascular: S1-S2 gastrointestinal: No pain extremities: Pain in the back and knee, tingling sensation down the neck 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 awake oriented x3 motor sensory intact skin: Normal turgor PFSH Medical History HTN (hypertension) Back pain Surgical History Hx of shoulder surgery Hx of spinal surgery Family History Other Mental health disorder Substance use disorder Social History Housing: Apartment Alcohol intake: current Alcohol intake frequency: a few times a week Patient Tobacco Use Status: Never used Tobacco e-Cigarette/Vaping Use: Never Used Current occupational status: employed Current occupation: [employer], 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 Cognitive needs: No Hearing needs: No Vision needs: No Questionnaire PHQ-9 Over the last 2 weeks, how often have you been bothered by any of the following problems? 1. Little interest or pleasure in doing things: not at all 2. Feeling down, depressed, or hopeless: not at all 3. Trouble falling or staying asleep, or sleeping too much: not at all 4. Feeling tired or having little energy: several days 5. Poor appetite or overeating: more than half the days 6. Feeling bad about yourself - or that you are a failure or have let yourself or your family down: not at all 7. Trouble concentrating on things, such as reading the newspaper or watching television: not at all 8. Moving or speaking so slowly that other people could have noticed. Or the opposite - being so fidgety or restless that you have been moving around a lot more than usual: not at all 9. Thoughts that you would be better off or of hurting yourself in some way: not at all Total score: 3 Depression Screening Interpretation: Negative Depression Screening Done: Yes [id number] - PHQ-9 Billing: Yes Source: Developed by Drs. Zack Caballero, aNdine King, Rob Brewer and colleagues, with an educational della from [employer]. Thrive Questionnaire Date Thrive assessed: 08/17/24 I am a: Patient What is your living situation today?: I have a steady place to live Within the past 12 months, did the food you bought not last and you didn't have the money to get more?: Often true Within the past 12 months, did you worry whether your food would run out before you got money to buy more?: Sometimes True Do you have trouble paying for medicines?: Yes Do you have trouble getting transportation to medical appointments?: No Do you have trouble paying your heating and electricity bill?: No Do you have trouble taking care of your child, family member or friend?: No Do you have trouble with day-to-day activities such as bathing, preparing meals, shopping, managing finances, etc.?: No Are you currently unemployed and looking for a job?: No Are you interested in more education?: No Please select the resources that you would like help with: None Currently or been in a relationship where the following occur: No concerns reported THRIVE Score: 2 AUDIT C Alcohol Use Questionnaire (AUDIT-C) 1. How often do you have a drink containing alcohol?: Never Total Score: 0 ANIYA-7 AMB Questionnaire ANIYA-7 Date ANIYA - 7 assessed: 04/08/23 Feeling nervous, anxious, or on edge: 0 = Not at all Not being able to stop or control worryin = Not at all Worrying too much about different things: 1 = Several days Trouble relaxin = Not at all Being so restless that it is hard to sit still: 0 = Not at all Becoming easily annoyed or irritable: 0 = Not at all Feeling afraid as if something awful might happen: 0 = Not at all Total ANIYA-7 score (0-4 normal; 5-9 mild; 10-14 moderate; 15-21 severe): 1 Source: Developed by Drs. Zack Caballero, Nadine King, Rob Brewer and colleagues, with an educational della from [employer]. Physical exam (Primary Care) Vital Signs: Last Vital Signs Pulse 70 08/17/24 12:19 BP 134/82 08/17/24 12:19 Pulse Ox 96 08/17/24 12:19 Oxygen Delivery Method Room Air 08/17/24 12:19 BMI result Body Mass Index 42.5 Tobacco/Smoking Status: Tobacco use Status Tobacco use date assessed 08/17/24 08/17/24 12:19 Patient Tobacco Use Status Never used Tobacco 08/17/24 12:19 e-Cigarette/Vaping Use Never Used 08/17/24 12:19 PHQ-9: PHQ-9 Score PHQ-9: Total score 3 08/17/24 12:44 Depression Screening Interpretation: Negative Thrive Assessment: Date of Thrive Assessment Date Thrive assessed 08/17/24 08/17/24 12:19 Currently or been in a relationship where the following occur: No concerns reported Coding Level of Care Code Est Pt Level 4 (41476) Diagnoses New onset type 2 diabetes mellitus E11.9 Hypertension, essential I10 Left lumbar radiculitis M54.16 Spinal stenosis at L4-L5 level M48.061 Recurrent major depressive disorder, in full remission F33.42 Active/Remission status: in full remission Morbid obesity due to excess calories E66.01 Additional Codes PHQ-9 - 24984 - PHQ-9 Billing: Yes ([id number]) Assessment & Plan Assessment & Plan (1) New onset type 2 diabetes mellitus: Code(s): E11.9 - Type 2 diabetes mellitus without complications Category: Medical (2) Hypertension, essential: Code(s): I10 - Essential (primary) hypertension Category: Medical (3) Left lumbar radiculitis: Code(s): M54.16 - Radiculopathy, lumbar region Category: Medical (4) Spinal stenosis at L4-L5 level: Code(s): M48.061 - Spinal stenosis, lumbar region without neurogenic claudication Category: Medical (5) Major depression, recurrent: Code(s): F33.9 - Major depressive disorder, recurrent, unspecified Category: Medical Qualifiers: Active/Remission status: in full remission Qualified Code(s): F33.42 - Major depressive disorder, recurrent, in full remission (6) Morbid obesity due to excess calories: Code(s): E66.01 - Morbid (severe) obesity due to excess calories Category: Medical Plan History - The patient is a 44 year old male presenting with management of poorly controlled diabetes and hypertension. - Reports a significant increase in A1c from 6.8 to 8.3. Attributed to dietary changes and lack of medication. He has not been managing this with medication recently. - Essential Hypertension is being managed with medication; however, refill issues have been noted. - Depression management was halted by the patient due to experiencing severe side effects Wellbutrin 300 , feeling of high, medication did help him stabilize his mood - The patient describes persistent and chronic back pain and neck pain. Pain managed with Percocet through [facility] pain management, but has had trouble obtaining the medication due to insurance issues. 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 Left shoulder demonstrates symptoms suggestive of tendon or joint issues, similar to previous problems experienced with the right shoulder, which was surgically treated. - morbid obesity having difficulty losing weight Problem List - Essential Hypertension - Diabetes Mellitus, Poorly Controlled - Depression - Chronic Back Pain - Neck Pain - Shoulder Pain - Knee Pain - History of Spine Surgery Diagnostic results - Labs: HbA1c increased to 8.3 from a previous 6.8, indicating poor diabetes control. Patient Instructions - Start new diabetes medication as prescribed, take 1 tablet in the morning.Glipizide 5 mg - Check blood sugar levels using provided machine, track results once or twice a week and bring log to next appointment. - Adjust depression medication to 100 mg wellbutrin primarily in the morning. - Contact the office with blood sugar readings or any new symptoms. - Carry candy for signs of low blood sugar. Signs and symptoms of hypoglycemia discussed - Use online portal for communication regarding any medication issues or condition updates. Orders: Orders Complete Blood Count Auto Diff 3 Months E11.9 - Type 2 diabetes mellitus without complications, E66.09 - Other obesity due to excess calories, F33.42 - Major depressive disorder, recurrent, in full remission, I10 - Essential (primary) hypertension, M48.061 - Spinal stenosis, lumbar region without neurogenic claudication, M54.16 - Radiculopathy, lumbar region Comprehensive Met. Panel 3 Months E11.9 - Type 2 diabetes mellitus without complications, E66.09 - Other obesity due to excess calories, F33.42 - Major depressive disorder, recurrent, in full remission, I10 - Essential (primary) hypertension, M48.061 - Spinal stenosis, lumbar region without neurogenic claudication, M54.16 - Radiculopathy, lumbar region Hemoglobin A1c 3 Months E11.9 - Type 2 diabetes mellitus without complications, E66.09 - Other obesity due to excess calories, F33.42 - Major depressive disorder, recurrent, in full remission, I10 - Essential (primary) hypertension, M48.061 - Spinal stenosis, lumbar region without neurogenic claudication, M54.16 - Radiculopathy, lumbar region LDL Cholesterol Direct 3 Months E11.9 - Type 2 diabetes mellitus without complications, E66.09 - Other obesity due to excess calories, F33.42 - Major depressive disorder, recurrent, in full remission, I10 - Essential (primary) hypertension, M48.061 - Spinal stenosis, lumbar region without neurogenic claudication, M54.16 - Radiculopathy, lumbar region Referrals Pain Management Referral M48.061 - Spinal stenosis, lumbar region without neurogenic claudication Medications: New glipizide 5 mg PO DAILY 90 tabs 0RF bupropion HCl SR (Wellbutrin SR) 100 mg PO QAM 90 tabs 1RF Refilled hydrochlorothiazide 25 mg PO QAM 90 tabs 1RF Discontinued erythromycin Discontinued Reason: Doctor's Order 0.5 inches ophthalmic (eye) TID 5 days 3.5 grams 0RF bupropion HCl XL (Wellbutrin XL) Discontinued Reason: Doctor's Order 300 mg PO QAM 90 tabs 1RF stress
== END 2024-08-17 12:48 | disposition home or self-care (01) ==
PROVIDERS: PCP Internal Medicine; Visit Provider Internal Medicine
DX: E11.9 Type 2 diabetes mellitus without complications (principal); F33.42 Major depressive disorder, recurrent, in full remission; E66.01 Morbid (severe) obesity due to excess calories; Z68.41 Body mass index [BMI] 40.0-44.9, adult; I10 Essential (primary) hypertension; M54.16 Radiculopathy, lumbar region; M48.061 Spinal stenosis, lumbar region without neurogenic claudication

== ENCOUNTER → 2024-08-17 12:17 | Outpatient (BNVA) | payer OTHER, SELFPAY | PROVIDERS: PCP Internal Medicine; Visit Provider Internal Medicine | DX: E11.9 Type 2 diabetes mellitus without complications (principal); I10 Essential (primary) hypertension; M54.16 Radiculopathy, lumbar region; M48.061 Spinal stenosis, lumbar region without neurogenic claudication; F33.42 Major depressive disorder, recurrent, in full remission; E66.01 Morbid (severe) obesity due to excess calories | CPT/HCPCS: 83036; 96127 ==

== ENCOUNTER 2024-09-30 12:10 | Outpatient (AMB) | payer OTHER, SELFPAY ==
--- NOTE | 2024-09-30 12:31 | MHC.OFFVIS ---
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 Allergies house dust Allergy (Mild, Verified 09/30/24 12:34) cough, watery eyes, sneeze hazelnut [HAZELNUT] Allergy (Unknown, Verified 09/30/24 12:34) UNKNOWN Medication List - Last Reconciled 09/30/24 by Alma Penny LPN atenolol 50 mg PO DAILY [Bp monitor As directed] hydrochlorothiazide 25 mg PO QAM [Knee brace left As directed] lancets (OneTouch Delica Plus Lancet) Test blood sugar twice a day OneTouch Verio Flex meter (blood-glucose meter) Test blood sugar twice a day NS OneTouch Verio test strips (blood sugar diagnostic) Test blood sugar once a day NS HPI HPI Lumbar Spinal Stenosis w/o Neurogenic Claudication: Details: History of Present Illness The patient is a 44-year-old male presenting with chronic lower back pain and left shoulder pain. His lower back pain originated approximately 15 years ago at his workplace involving heavy lifting. Following a spine surgery around L3-L4 about four years ago, the pain persisted and now rates as 4-5/10, exacerbated by work activities and affecting sleep. His shoulder pain is linked to previous surgery involving clavicle shaving at the [facility]. Currently, he describes recurrent clicking and tearing sensations, with pain occasionally radiating towards the neck and causing numbness and tingling. There has been no recent physical therapy for the shoulder, affecting insurance coverage for further evaluation. The patient also has hypertension and pre-diabetes, actively attempting lifestyle changes to manage his glucose levels and weight. Pain Description - Lower back pain began 15 years ago, associated with heavy lifting at work. - Persistent pain post spine surgery (laminectomy) at L3-L4, rated 4-5/10. - Pain is worse after work and interferes with sleep. - Left shoulder pain with clicking and tearing sensations, worsened by certain movements. - Pain sometimes radiates towards the neck, causing numbness and tingling in the back. - Engages in lifestyle changes to manage weight, which is anticipated to help alleviate pain. Physical Exam - Appears afebrile. - Alert and oriented. - Mood and affect appropriate. - Follows and participates in conversation appropriately. - Respiratory effort is unlabored. - Able to transition from sit to stand unassisted. - Ambulates with bilaterally normal heel strike and toe off. - Able to stand and walk on toes and heels. Results - Labs: Patient reports glucose of 169 mg/dL; HbA1c levels suggest diabetes. - Tests: Last MRI of the back was in 2020, showing disc bulge at L4-5. - Diagnostics: Patient recalls MRI from 2016; no recent objective findings specified in conversation. Pain Management - Affect: Chronic pain interferes with sleep but does not hinder work responsibilities. - Analgesia: Current pain level is approximately 4-5/10; previous treatments include a spinal laminectomy and shoulder surgery. - Adverse Effects: No side effects mentioned from current blood pressure medication. - Activities of Daily Living: Continues to work full-time despite pain, engaging in weight management and diet modifications for overall health improvement. - Aberrant Drug Related Behaviors: No aberrant behaviors discussed. PFSH Medical History HTN (hypertension) Back pain Surgical History Hx of shoulder surgery Hx of spinal surgery Family History Other Mental health disorder Substance use disorder Social History Housing: Apartment Alcohol intake: current Alcohol intake frequency: a few times a week Patient Tobacco Use Status: Never used Tobacco e-Cigarette/Vaping Use: Never Used Current occupational status: employed Current occupation: [employer], 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 Cognitive needs: No Hearing needs: No Vision needs: No Physical Exam Vital Signs: Last Vital Signs Pulse 63 09/30/24 12:32 Resp 16 09/30/24 12:32 BP 116/70 09/30/24 12:32 Pulse Ox 96 09/30/24 12:32 Oxygen Delivery Method Room Air 09/30/24 12:32 BMI result Body Mass Index 41.6 Assessment & Plan Assessment & Plan (1) Spinal stenosis at L4-L5 level: Code(s): M48.061 - Spinal stenosis, lumbar region without neurogenic claudication Category: Medical (2) Chronic back pain: Code(s): M54.9 - Dorsalgia, unspecified; G89.29 - Other chronic pain Category: Medical Qualifiers: Back pain laterality: left Back pain location: low back pain Sciatica laterality: sciatica of left side Sciatica presence: with sciatica Qualified Code(s): M54.42 - Lumbago with sciatica, left side; G89.29 - Other chronic pain (3) Left shoulder pain: Code(s): M25.512 - Pain in left shoulder Category: Medical Plan Plan - Initiate physical therapy for shoulder and back; maintain home exercise program. - Proceed with MRI to reassess back condition. - Focus on weight management and correct lifting practices. - Encourage adherence to dietary modifications to improve pre-diabetic condition. - Evaluate and treat shoulder issues to enhance mobility and reduce pain. Patient was informed and verbally consented to the use of an ambient scribe for clinic note documentation during this visit. Discussion Notes During the consultation, I informed the patient about the need for physical therapy prior to getting insurance coverage approval for an MRI to evaluate the persistence of his back and shoulder pain. Emphasized the importance of weight management and proper lifting techniques to mitigate back strain. Highlighted the potential long-term benefits of addressing his pre-diabetic status through dietary modifications. We discussed getting a recent MRI to update the knowledge of his spine's condition. Educated the patient on the advantages of consistent exercise and its impact on reducing diabetes risk and overall pain management. The patient expressed understanding of the suggested plans and demonstrated willingness to comply with the recommended lifestyle adjustments. Patient Instructions - Attend at least one physical therapy session and continue exercises at home for lower back and shoulder. - Schedule an MRI to check for possible spine changes. - Follow a healthy diet to control blood sugar and weight. - Practice safe lifting techniques to avoid back injury. - Continue prescribed medication for blood pressure and monitor glucose levels. - Return to clinic in 6-8 weeks after completing physical therapy for further evaluation. Orders: Orders PT Evaluation and Treatment 09/30/24 M48.061 - Spinal stenosis, lumbar region without neurogenic claudication, M54.42 - Lumbago with sciatica, left side, G89.29 - Other chronic pain, M25.512 - Pain in left shoulder Coding Level of Care Code New Pt Level 4 (09134) Diagnoses Spinal stenosis at L4-L5 level M48.061 Chronic back pain M54.42; G89.29 Back pain laterality: left Back pain location: low back pain Sciatica laterality: sciatica of left side Sciatica presence: with sciatica Left shoulder pain M25.512
[2024-09-30 12:32] VITALS: BP 116/70; PULSE 63; RESP 16; O2SAT 96; BMI 41.6
== END 2024-09-30 13:40 | disposition home or self-care (01) ==
LOC: HO.PMC 12:11
PROVIDERS: PCP Internal Medicine; Referring Provider Internal Medicine; Visit Provider Internal Medicine
DX: M48.061 Spinal stenosis, lumbar region without neurogenic claudication (principal); M54.42 Lumbago with sciatica, left side; G89.29 Other chronic pain; M25.512 Pain in left shoulder
CPT/HCPCS: 99204

== ENCOUNTER 2025-04-19 15:18 | Outpatient (AMB) | payer OTHER, SELFPAY ==
[2025-04-19 15:18] VITALS: BP 120/72; PULSE 60; O2SAT 97; BMI 41.6
--- NOTE | 2025-04-19 15:18 | A.OFFPC_ITS ---
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 Accompanied by: Self / Same As Patient Allergies house dust Allergy (Mild, Verified 04/19/25 15:18) cough, watery eyes, sneeze hazelnut (HAZELNUT) Allergy (Unknown, Verified 04/19/25 15:18) UNKNOWN glipizide Adverse Reaction (Mild, Verified 04/20/25 08:52) low sugar Medication List - Last Reconciled 04/19/25 by Shannan Mcbride MD atenolol 50 mg PO DAILY [Bp monitor As directed] hydrochlorothiazide 25 mg PO QAM [Knee brace left As directed] lancets (OneTouch Delica Plus Lancet) Test blood sugar twice a day OneTouch Verio Flex meter (blood-glucose meter) Test blood sugar twice a day NS OneTouch Verio test strips (blood sugar diagnostic) Test blood sugar once a day NS Tobacco use date assessed: 08/17/24 Dental Screening Dental Screen Date: 04/19/25 Did you have a dental visit in the last 12 months?: Yes Did you have a dental problem in the last 6 months where you did not have access to dental care?: No Was dental information given to patient?: Patient has dentist HPI Annual PE HPI Details History - The patient is a 44 year old male pres enting with management of poorly controlled diabetes and hypertension. - Reports a significant increase in A1c from 6.8 to 8.3. Attributed to dietary changes and lack of medication. He has not been managing this with medication recently. - Essential Hypertension is being manage d with medication. - Depression management was halted by th e patient due to experiencing side effects including lightheadedness . - The patient describes persistent and c hronic back pain and neck pain. Pain was previously managed with Percocet but has had trouble obtaining the medication due to insurance issues. - Left shoulder and knee pain are presen t. Left shoulder demonstrates symptoms suggestive of tendon or joint issues, similar to previous problems experienced with the right shoulder, which was surgically treated. Patient is established with Ortho Problem List - Essential Hypertension - Diabetes Mellitus, Poorly Controlled - Depression - Chronic Back Pain - Shoulder Pain - Knee Pain - History of Spine Surgery - Morbid obesity Diagnostic results - Labs: HbA1c increased to 8.3 from a pr evious 6.8, indicating poor diabetes control. Patient Instructions - Start new diabetes medication as presc ribed, take 1 tablet in the morning. wellbutrin 100 mg - Check blood sugar levels using provide d machine, track results once or twice a week and bring log to next appointment. - Contact the office with blood sugar re adings or any new symptoms. - Carry candy for signs of low blood sug ar. since we are starting trulicity .75 mg once a week - Use online portal for communication re garding any medication issues or condition updates. Review of Systems General: No fever no chills neurological: No headaches no dizziness ear nose throat: No sore throat no hearing difficulty no ear pain cardiovascular: No syncope, no chest pain, no palpitations gastrointestinal: No nausea vomiting or diarrhea endocrine: No polyuria polydipsia no heat intolerance genitourinary: No dysuria skin: No new complaints Physical Exam general: No acute distress HEENT: No acute findings neck: Supple, tingling sensation down the neck respiratory system: Able to talk in full sentences, no audible wheeze no stridor cardiovascular: S1-S2 gastrointestinal: No pain extremities: Pain in the back and knee, but full ROM and no swelling 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 x3 motor sensory intact skin: Normal turgor PFSH Medical History HTN (hypertension) Back pain Surgical History Hx of shoulder surgery Hx of spinal surgery Family History Other Mental health disorder Substance use disorder Social History Housing: Apartment Alcohol intake: current Alcohol intake frequency: a few times a week Patient Tobacco Use Status: Never used Tobacco e-Cigarette/Vaping Use: Never Used Current occupational status: employed Current occupation: [employer], 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 Cognitive needs: No Hearing needs: No Vision needs: No Questionnaire Thrive Questionnaire Date Thrive assessed: 08/17/24 ANIYA-7 AMB Questionnaire ANIYA-7 Date ANIYA - 7 assessed: 04/19/25 Feeling nervous, anxious, or on edge: 0 = Not at all Not being able to stop or control worryin = Not at all Worrying too much about different things: 1 = Several days Trouble relaxin = Not at all Being so restless that it is hard to sit still: 0 = Not at all Becoming easily annoyed or irritable: 0 = Not at all Feeling afraid as if something awful might happen: 0 = Not at all Total ANIYA-7 score (0-4 normal; 5-9 mild; 10-14 moderate; 15-21 severe): 1 Source: Developed by Drs. Zack Caballero, Nadine King, Rob Brewer and colleagues, with an educational della from [employer]. ANIYA-7 Assessment Billing ANIYA-7 Assessment Tool: ANYIA-7 Assessment 56036 Physical exam (Primary Care) Vital Signs: Last Vital Signs Pulse 60 04/19/25 15:18 BP 120/72 04/19/25 15:18 Pulse Ox 97 04/19/25 15:18 BMI result Body Mass Index 41.6 Tobacco/Smoking Status: Tobacco use Status Tobacco use date assessed 08/17/24 04/19/25 15:19 Patient Tobacco Use Status Never used Tobacco 04/19/25 15:19 e-Cigarette/Vaping Use Never Used 04/19/25 15:19 Thrive Assessment: Date of Thrive Assessment Date Thrive assessed 08/17/24 04/19/25 15:19 Results AMB Hemoglobin A1c AMB Hemoglobin A1c 8.2 % Last Edit by Behzad Valles CMA on 04/19/25 15: 34 Results Reviewed Results Reviewed: Laboratory Last Values Hgb A1c (Clinic) 8.2 % (4.0-6.0) H 04/19/25 15:26 Coding Level of Care Code Est Pt Level 3 (26290) Est Pt Prev Care 40-64y(43150) Diagnoses Encounter for general adult medical examination with abnormal findings Z00.01 Uncontrolled type 2 diabetes mellitus with hyperglycemia E11.65 Diabetes mellitus type: type 2 Hypertension, essential I10 Recurrent major depressive disorder, in full remission F33.42 Active/Remission status: in full remission Stress F43.9 Spinal stenosis at L4-L5 level M48.061 Morbid obesity due to excess calories E66.01 Additional Codes ANIYA-7 Assessment Billing - ANIYA-7 Assessment Tool: ANIYA-7 Assessment 82912 ([id number]) Assessment & Plan Assessment & Plan (1) Encounter for general adult medical examination with abnormal findings: Code(s): Z00.01 - Encounter for general adult medical examination with abnormal findings Category: Medical (2) Uncontrolled diabetes mellitus with hyperglycemia: Code(s): E11.65 - Type 2 diabetes mellitus with hyperglycemia Category: Medical Qualifiers: Diabetes mellitus type: type 2 Qualified Code(s): E11.65 - Type 2 diabetes mellitus with hyperglycemia (3) Hypertension, essential: Code(s): I10 - Essential (primary) hypertension Category: Medical (4) Major depression, recurrent: Code(s): F33.9 - Major depressive disorder, recurrent, unspecified Category: Medical Qualifiers: Active/Remission status: in full remission Qualified Code(s): F33.42 - Major depressive disorder, recurrent, in full remission (5) Stress: Code(s): F43.9 - Reaction to severe stress, unspecified Category: Medical (6) Spinal stenosis at L4-L5 level: Code(s): M48.061 - Spinal stenosis, lumbar region without neurogenic claudication Category: Medical (7) Morbid obesity due to excess calories: Code(s): E66.01 - Morbid (severe) obesity due to excess calories Category: Medical Plan History - The patient is a 44 year old male presenting with annual PE and management of poorly controlled diabetes and hypertension. - Reports a significant increase in A1c from 6.8 to 8.3. Attributed to dietary changes and lack of medication. He has not been managing this with medication recently. - Essential Hypertension is being managed with medication. - Depression management was halted by the patient due to experiencing side effects including lightheadedness . - The patient describes persistent and chronic back pain and neck pain. Pain was previously managed with Percocet but has had trouble obtaining the medication due to insurance issues. - Left shoulder and knee pain are present. Left shoulder demonstrates symptoms suggestive of tendon or joint issues, similar to previous problems experienced with the right shoulder, which was surgically treated. Patient is established with Ortho Problem List - Essential Hypertension - Diabetes Mellitus, Poorly Controlled - Depression - Chronic Back Pain - Shoulder Pain - Knee Pain - History of Spine Surgery - Morbid obesity Diagnostic results - Labs: HbA1c increased to 8.3 from a previous 6.8, indicating poor diabetes control. Patient Instructions - Start new diabetes medication as prescribed, take 1 tablet in the morning. wellbutrin 100 mg - Check blood sugar levels using provided machine, track results once or twice a week and bring log to next appointment. - Contact the office with blood sugar readings or any new symptoms. - Carry candy for signs of low blood sugar. since we are starting trulicity .75 mg once a week - Use online portal for communication regarding any medication issues or conditi on updates. f/u 3 wks Orders: Orders AMB Hemoglobin A1c 04/19/25 Z13.9 - Encounter for screening, unspecified Complete Blood Count Auto Diff 04/19/25 E11.9 - Type 2 diabetes mellitus without complications, E66.01 - Morbid (severe) obesity due to excess calories, F33.42 - Major depressive disorder, recurrent, in full remission, F43.9 - Reaction to severe stress, unspecified, I10 - Essential (primary) hypertension, M48.061 - Spinal stenosis, lumbar region without neurogenic claudication, Z00.01 - Encounter for general adult medical examination with abnormal findings TSH reflex Free T4 04/19/25 E11.9 - Type 2 diabetes mellitus without complications, E66.01 - Morbid (severe) obesity due to excess calories, F33.42 - Major depressive disorder, recurrent, in full remission, F43.9 - Reaction to severe stress, unspecified, I10 - Essential (primary) hypertension, M48.061 - Spinal stenosis, lumbar region without neurogenic claudication, Z00.01 - Encounter for general adult medical examination with abnormal findings Microalbumin, Random (w Creat) 04/19/25 E11.9 - Type 2 diabetes mellitus without complications, E66.01 - Morbid (severe) obesity due to excess calories, F33.42 - Major depressive disorder, recurrent, in full remission, F43.9 - Reaction to severe stress, unspecified, I10 - Essential (primary) hypertension, M48.061 - Spinal stenosis, lumbar region without neurogenic claudication, Z00.01 - Encounter for general adult medical examination with abnormal findings Comprehensive [place]. Panel Fast 04/19/25 E11.9 - Type 2 diabetes mellitus without complications, E66.01 - Morbid (severe) obesity due to excess calories, F33.42 - Major depressive disorder, recurrent, in full remission, F43.9 - Reaction to severe stress, unspecified, I10 - Essential (primary) hypertension, M48.061 - Spinal stenosis, lumbar region without neurogenic claudication, Z00.01 - Encounter for general adult medical examination with abnormal findings Lipid Panel 04/19/25 E11.9 - Type 2 diabetes mellitus without complications, E66.01 - Morbid (severe) obesity due to excess calories, F33.42 - Major depressive disorder, recurrent, in full remission, F43.9 - Reaction to severe stress, unspecified, I10 - Essential (primary) hypertension, M48.061 - Spinal stenosis, lumbar region without neurogenic claudication, Z00.01 - Encounter for general adult medical examination with abnormal findings Medications: New dulaglutide 1.5 mg subcut QWEEK 5 mL 0RF 30 days Refilled hydrochlorothiazide 25 mg PO QAM 90 tabs 1RF bupropion HCl SR (Wellbutrin SR) 100 mg PO QAM 90 tabs 1RF atenolol 50 mg PO DAILY 90 tabs 1RF
== END 2025-04-19 15:40 | disposition home or self-care (01) ==
LOC: HO.HMCC 15:18
PROVIDERS: PCP Internal Medicine; Visit Provider Internal Medicine
DX: Z13.9 Encounter for screening, unspecified (principal)

== ENCOUNTER → 2025-04-19 15:18 | Outpatient (BNVA) | payer OTHER, SELFPAY | PROVIDERS: PCP Internal Medicine; Visit Provider Internal Medicine | DX: Z00.01 Encounter for general adult medical examination with abnormal findings (principal); I10 Essential (primary) hypertension; E11.9 Type 2 diabetes mellitus without complications; M25.512 Pain in left shoulder; E11.65 Type 2 diabetes mellitus with hyperglycemia; F33.42 Major depressive disorder, recurrent, in full remission; F43.9 Reaction to severe stress, unspecified; M48.061 Spinal stenosis, lumbar region without neurogenic claudication; E66.01 Morbid (severe) obesity due to excess calories; Z68.41 Body mass index [BMI] 40.0-44.9, adult | CPT/HCPCS: 83036; 96127 ==

== ENCOUNTER 2025-04-22 09:04 | Outpatient (REF) | payer OTHER, SELFPAY ==
[2025-04-22 11:38] LABS: MANUAL DIFF FLAG NO
[2025-04-22 11:51] LABS: Hematocrit 44.3 % (42.0-52.0); Hemoglobin 15.4 g/dl (14.0-18.0); Imm Gran Abs Auto 0.02 X10*3/uL (0.00-0.03); Imm Gran Pct Auto 0.4 % (0.0-0.4); Lymphocytes Absolute Auto 1.7 X10*3/uL (1.2-4.9); Mean Corpuscular HGB Conc 34.8 g/dl (31.0-36.0); Mean Corpuscular Hemoglobin 28.6 pg (27.0-33.0); Mean Corpuscular Volume 82.3 fL (80.0-98.0); NRBC Abs Auto 0.000 X10*3/uL (0.0-0.012); NRBC Pct Auto 0.0 /100WBC (0.0-0.2); Platelet Count 253 X10*3/uL (160-400); Red Blood Count 5.38 X10*6/uL (4.60-5.80); White Blood Count 5.1 X10*3/uL (4.8-10.8)
[2025-04-22 12:14] LABS: Alanine Aminotransferase 28 U/L (0-40); Albumin Level 4.2 g/dL (3.5-5.0); Alkaline Phosphatase 64 U/L (39-117); Anion Gap 12 (12-20); Aspartate Amino Transferase 29 U/L (5-37); Blood Urea Nitrogen 14 mg/dL (9-16); Calcium 8.9 mg/dL (8.4-10.2); Carbon Dioxide 26 mmol/L (22-29); Chloride 100 mmol/L (96-108); Cholesterol 167 mg/dL (<200); Estimated Glomerular Filt Rate > 60; HDL Cholesterol 31 mg/dL (>40); Potassium 4.0 mmol/L (3.3-5.1); Sodium 134 mmol/L (135-145); Total Protein 6.6 g/dL (6.5-8.0); Triglycerides 383 mg/dL (<150)
[2025-04-22 12:45] LABS: Microalbum/Creatinine Ratio Ur 5.6 ug/mg cr (<30)
== END 2025-04-22 09:05 | disposition home or self-care (01) ==
LOC: HO.HMGCLDS 09:04
PROVIDERS: PCP Internal Medicine; Visit Provider Internal Medicine
DX: Z00.01 Encounter for general adult medical examination with abnormal findings (principal); I10 Essential (primary) hypertension; E11.9 Type 2 diabetes mellitus without complications; M48.061 Spinal stenosis, lumbar region without neurogenic claudication; M54.16 Radiculopathy, lumbar region; E66.09 Other obesity due to excess calories; F33.42 Major depressive disorder, recurrent, in full remission; E66.01 Morbid (severe) obesity due to excess calories; F43.9 Reaction to severe stress, unspecified
CPT/HCPCS: 36415; 80053; 80061; 82043; 82570; 83721; 84443; 85025

== ENCOUNTER 2025-05-17 14:52 | Outpatient (AMB) | payer OTHER, SELFPAY ==
[2025-05-17 14:54] VITALS: BP 122/72; PULSE 74; O2SAT 98; BMI 41.3
--- NOTE | 2025-05-17 14:54 | A.OFFPC_ITS ---
Vital Signs 05/17/25 14:54 Height 5 ft 10 in Weight 288 lb BMI 41.3 BP 122/72 Blood Pressure Location Lt brachial Position Sitting Pulse 74 Pulse Source Pulse Oximeter Pulse Oximetry (%) 98 Intake Visit Reasons: 3 week follow up Allergies house dust Allergy (Mild, Verified 05/17/25 14:55) cough, watery eyes, sneeze hazelnut (HAZELNUT) Allergy (Unknown, Verified 05/17/25 14:55) UNKNOWN glipizide Adverse Reaction (Mild, Verified 05/17/25 14:55) low sugar Medication List - Last Reconciled 05/17/25 by Shannan Mcbride MD alcohol swabs (Alcohol Prep Pads) 1 pad topical BID atenolol 50 mg PO DAILY [Bp monitor As directed] bupropion HCl SR (Wellbutrin SR) 100 mg PO QAM dulaglutide 0.75 mg (0.5 mL) subcut QWEEK 30 days hydrochlorothiazide 25 mg PO QAM [Knee brace left As directed] lancets (OneTouch Delica Plus Lancet) Test blood sugar twice a day OneTouch Verio Flex meter (blood-glucose meter) Test blood sugar twice a day NS OneTouch Verio test strips (blood sugar diagnostic) Test blood sugar twice a day NS Tobacco use date assessed: 08/17/24 Dental Screening Dental Screen Date: 04/19/25 HPI 3 week follow up HPI Details History of Present Illness The patient is a 44 year old male presenting with a follow-up for management of Type 2 Diabetes Mellitus and medication side effects. Type 2 Diabetes Mellitus: - The patient's blood sugars remain high , with readings in the 200s and 300s, despite weekly Trulicity injections. - His glucose meter currently shows an a verage of 157 mg/dL. - The patient acknowledges that his diet is impacted by financial constraints, leading to consumption of fast food. - The patient uses a continuous glucose monitor provided by his employer. - He denies feeling symptoms when his bl ood sugar is high. Blurred Vision: - The patient reports that after the fir st dose of his weekly injection, he experienced lightheadedness and a bitter taste, which subsided after a few days. - A lingering side effect is blurred vis ion, which makes it harder for him to read up close. - He saw an eye doctor recently who conf irmed his distance vision is 20/20 but prescribed reading glasses for near vision. - The patient's brother, who is also on the same medication, advised him to give it time for the side effects to resolve. Anxiety: - The patient reports that his anxiety m edication, Wellbutrin, messes him up. - He feels the side effects are too much to deal with. 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 - His job requires him to be very concen trated. Problem List - Type 2 Diabetes Mellitus - Blurred vision / side effect but getti ng better - Anxiety Plan - The patient will continue the current dose of Trulicity weekly. but stop any time you want if blurring continue, and let me know - A prescription for a fast-acting insul in pen will be sent to be used as needed for hyperglycemia. - The patient was instructed on a slidin g scale for insulin: administer 4 units for blood glucose 250-300 mg/dL, 6 units for 301-350 mg/dL, and 10 units for 351-400 mg/dL, up to three times a day and at least 8 hours apart. - The patient will discontinue Wellbutri n due to side effects. - The dose of Trulicity may be increased at the next visit if his blurred vision improves, which could reduce the need for supplemental insulin. - Schedule a follow-up appointment in . Review of Systems. - General: No fever no chills - Neurological: No headaches - Ear nose throat: No sore throat no hearing difficulty no ear pain - Cardiovascular: No syncope, no chest pain, no palpitations - Gastrointestinal: No nausea vomiting or diarrhea - Endocrine: No polyuria polydipsia no heat intolerance - Genitourinary: No dysuria , no blood in urine Physical Exam - General: No acute distress - HEENT: No acute findings - Neck: Supple - Respiratory system: Able to talk in f ull sentences, no audible wheeze - Cardiovascular: S1-S2 regular in rate and rhythm - Gastrointestinal: No pain - Extremities: No new findings - STAFF ACCOUNTANT: Alert awake oriented x3 motor in tact - Skin: Normal turgor [facility] Medical History HTN (hypertension) Back pain Surgical History Hx of shoulder surgery Hx of spinal surgery Family History Other Mental health disorder Substance use disorder Social History Housing: Apartment Alcohol intake: current Alcohol intake frequency: a few times a week Patient Tobacco Use Status: Never used Tobacco e-Cigarette/Vaping Use: Never Used Current occupational status: employed Current occupation: [employer], 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 Cognitive needs: No Hearing needs: No Vision needs: No Questionnaire Thrive Questionnaire Date Thrive assessed: 08/17/24 I am a: Patient What is your living situation today?: I have a steady place to live Within the past 12 months, did the food you bought not last and you didn't have the money to get more?: Often true Within the past 12 months, did you worry whether your food would run out before you got money to buy more?: Sometimes True Do you have trouble paying for medicines?: Yes Do you have trouble getting transportation to medical appointments?: No Do you have trouble paying your heating and electricity bill?: No Do you have trouble taking care of your child, family member or friend?: No Do you have trouble with day-to-day activities such as bathing, preparing meals, shopping, managing finances, etc.?: No Are you currently unemployed and looking for a job?: No Are you interested in more education?: No Please select the resources that you would like help with: None Currently or been in a relationship where the following occur: No concerns reported THRIVE Score: 2 ANIYA-7 AMB Questionnaire ANIYA-7 Date ANIYA - 7 assessed: 04/19/25 Source: Developed by Drs. Zack Caballero, Nadine King, Rob Brewer and colleagues, with an educational della from [employer]. Physical exam (Primary Care) Vital Signs: Last Vital Signs Pulse 74 05/17/25 14:54 BP 122/72 05/17/25 14:54 Pulse Ox 98 05/17/25 14:54 BMI result Body Mass Index 41.3 Tobacco/Smoking Status: Tobacco use Status Tobacco use date assessed 08/17/24 05/17/25 14:56 Patient Tobacco Use Status Never used Tobacco 05/17/25 14:56 e-Cigarette/Vaping Use Never Used 05/17/25 14:56 Thrive Assessment: Date of Thrive Assessment Date Thrive assessed 08/17/24 05/17/25 14:56 Currently or been in a relationship where the following occur: No concerns reported Coding Level of Care Code Est Pt Level 3 (65658) Diagnoses Uncontrolled type 2 diabetes mellitus with hyperglycemia E11.65 Diabetes mellitus type: type 2 Medication side effect T88.7XXA Recurrent major depressive disorder, in full remission F33.42 Active/Remission status: in full remission Hypertension, essential I10 Assessment & Plan Assessment & Plan (1) Uncontrolled diabetes mellitus with hyperglycemia: Code(s): E11.65 - Type 2 diabetes mellitus with hyperglycemia Category: Medical Qualifiers: Diabetes mellitus type: type 2 Qualified Code(s): E11.65 - Type 2 diabetes mellitus with hyperglycemia (2) Medication side effect: Code(s): T88.7XXA - Unspecified adverse effect of drug or medicament, initial encounter Category: Medical (3) Major depression, recurrent: Code(s): F33.9 - Major depressive disorder, recurrent, unspecified Category: Medical Qualifiers: Active/Remission status: in full remission Qualified Code(s): F33.42 - Major depressive disorder, recurrent, in full remission (4) Hypertension, essential: Comment: controlled Code(s): I10 - Essential (primary) hypertension Category: Medical Plan Problem List - Type 2 Diabetes Mellitus - Blurred vision / side effect but getting better - Anxiety Plan - The patient will continue the current dose of Trulicity weekly. but stop any time you want if blurring continue, and let me know - A prescription for a fast-acting insulin pen will be sent to be used as needed for hyperglycemia. - The patient was instructed on a sliding scale for insulin: administer 4 units for blood glucose 250-300 mg/dL, 6 units for 301-350 mg/dL, and 10 units for 351-400 mg/dL, up to three times a day and at least 8 hours apart. - The patient will discontinue Wellbutrin due to side effects. - The dose of Trulicity may be increased at the next visit if his blurred vision improves, which could reduce the need for supplemental insulin. - Schedule a follow-up appointment in three months. Medications: New insulin aspart (niacinamide) 100 unit/mL (3 mL) 5 units subcut TID 15 mL 0RF 90 days E11.65 - Type 2 diabetes mellitus with hyperglycemia Changed From dulaglutide 0.75 mg (0.5 mL) subcut QWEEK 30 days 2.5 mL 0RF To dulaglutide 0.75 mg (0.5 mL) subcut QWEEK 6.5 mL 0RF 90 days Discontinued bupropion HCl SR (Wellbutrin SR) Discontinued Reason: Doctor's Order 100 mg PO QAM 90 tabs 1RF
== END 2025-05-17 15:19 | disposition home or self-care (01) ==
LOC: HO.HMCC 14:53
PROVIDERS: PCP Internal Medicine; Visit Provider Internal Medicine
DX: E11.65 Type 2 diabetes mellitus with hyperglycemia (principal); T88.7XXA Unspecified adverse effect of drug or medicament, initial encounter; F33.42 Major depressive disorder, recurrent, in full remission; I10 Essential (primary) hypertension